=== PATIENT | male | born 1950 | race Caucasian/White ===

== ENCOUNTER → 2016-03-21 | Outpatient (CLI) | payer MEDICARE ==
[2016-03-21 12:51] LABS: ALT 35 U/L (21-72); AST 20 U/L (17-59); Alkaline Phosphatase 52 U/L (38-126); Anion Gap 8 mmol/L; Blood Urea Nitrogen 20 mg/dL (9-20); Calcium 9.8 mg/dL (8.4-10.2); Carbon Dioxide 29 mmol/L (22-30); Chloride 104 mmol/L (98-107); Glucose 171 mg/dL (74-99); Non-African American GFR(MDRD) 57 (>60 ml/min/1.73 sqM); Potassium 5.1 mmol/L (3.5-5.1); Sodium 141 mmol/L (137-145); Total Bilirubin 0.4 mg/dL (0.2-1.3); Total Protein 6.8 g/dL (6.3-8.2)
--- NOTE | 2016-03-21 13:04 | XR ---
EXAMINATION TYPE: XR lumbosacral spine min 4V DATE OF EXAM: 03/21/2016 12:44 PM CLINICAL HISTORY: Back and sacroiliac joint pain TECHNIQUE: Frontal, lateral, and oblique images of the lumbar spine are obtained. COMPARISON: Prior lumbar spine x-ray December 18, 2008. Prior CT abdomen pelvis September 29, 2015. FINDINGS: Osseous structures are demineralized which is noted to lower radiographic sensitivity Ther e are 5 lumbar type vertebral bodies identified. There are persistent bilateral pars defects at L5 le lobo. There is grade 2 anterolisthesis of L5 on S1 redemonstrated. There is moderate to severe spurrin g and space loss at this level redemonstrated. There is additional moderate to severe disc space narr owing with moderate spurring and endplate sclerosis at L2-L3 level. There is moderate spurring and di sc space narrowing at L3-L4 level. There is multilevel moderate to severe spurring in the lower thora cic spine. There is calcification is present at T12-L1 level with moderate disc space narrowing. Ther e is moderate to severe multilevel lateral spurring most prominent left L2-L3 and right L3-L4 levels. Oblique images are within normal limits. Loss of normal lumbar lordosis is seen on lateral view. Ove rlying soft tissue is unremarkable. IMPRESSION: Demineralization, multilevel degenerative changes, and other findings as detailed above. No significant change from most recent CT. Progression in findings from 2009 films noted.
--- NOTE | 2016-03-21 13:07 | XR ---
EXAMINATION TYPE: XR abdomen 1V DATE OF EXAM: 03/21/2016 12:43 PM CLINICAL HISTORY: Kidney stones progress study TECHNIQUE: 2 supine KUB images of the abdomen are obtained. COMPARISON: Abdominal x-ray and CT abdomen and pelvis September 29, 2015 FINDINGS: Previously visualized 4 mm calculus lower pole level right kidney is not definitively seen on current study. There is more prominent overlying fecal material however noted making evaluation smith boptimal. Same day lumbar spine x-ray also does not definitively show previously visualized calculus. There is overall nonobstructive bowel gas pattern. Numerous surgical clips in the right pelvis are no w present. There are multiple left-sided pelvic phleboliths redemonstrated. Multilevel spurring and d isc space narrowing throughout the lumbar spine is redemonstrated. Lung bases are grossly clear. Card iomegaly is redemonstrated. IMPRESSION: Previously visualized 4 mm calculus lower pole level right kidney is not clearly seen on today's stud y.
== END | disposition home or self-care (01) ==
LOC: LABWHC1 11:54
PROVIDERS: ATTEND Family Medicine
DX: E87.6 Hypokalemia (principal); M53.3 Sacrococcygeal disorders, not elsewhere classified; N20.0 Calculus of kidney
CPT/HCPCS: 36415; 72110; 74000; 80053

== ENCOUNTER → 2016-04-29 | Outpatient (CLI) | payer MEDICARE ==
[2016-04-29 09:26] LABS: Potassium 5.2 mmol/L (3.5-5.1); Total Bilirubin 0.8 mg/dL (0.2-1.3); Total Protein 7.6 g/dL (6.3-8.2)
[2016-04-29 14:01] LABS: Hemoglobin A1C 6.6 % (4.2-6.1)
== END | disposition home or self-care (01) ==
LOC: LABWHC1 08:28
PROVIDERS: ATTEND Family Medicine
DX: E11.9 Type 2 diabetes mellitus without complications (principal); E87.6 Hypokalemia
CPT/HCPCS: 36415; 80053; 83036

== ENCOUNTER → 2016-06-03 | Outpatient (CLI) | payer MEDICARE ==
--- NOTE | 2016-06-03 16:15 | XR ---
EXAMINATION TYPE: XR chest 2V DATE OF EXAM: 06/03/2016 3:59 PM HISTORY: R05 Cough. REFERENCE: Previous study dated 12/18/2008. FINDINGS: The lungs are clear. Pleural spaces are clear. Heart size is upper limits of normal. IMPRESSION: BORDERLINE CARDIOMEGALY.
== END ==
LOC: RADXRMAIN 15:51
PROVIDERS: ATTEND Family Medicine
DX: I51.7 Cardiomegaly (principal)
CPT/HCPCS: 71020

== ENCOUNTER → 2016-07-25 | Outpatient (CLI) | payer MEDICARE ==
[2016-07-25 10:49] LABS: CH 29.8; CHCM 33.2; HCT 42.1 % (39.0-53.0); HDW 2.73; HGB 13.8 gm/dL (13.0-17.5); MCH 29.6 pg (25.0-35.0); MCHC 32.8 g/dL (31.0-37.0); MCV 90.3 fL (80.0-100.0); Mean Platelet Volume 6.4; RBC 4.66 m/uL (4.30-5.90); RDW 13.1 % (11.5-15.5)
[2016-07-25 11:21] LABS: ALT 32 U/L (21-72); AST 24 U/L (17-59); Alkaline Phosphatase 52 U/L (38-126); Anion Gap 9 mmol/L; Blood Urea Nitrogen 28 mg/dL (9-20); Carbon Dioxide 25 mmol/L (22-30); Chloride 107 mmol/L (98-107); Cholesterol 132 mg/dL (<200); Glucose 141 mg/dL (74-99); HDL Cholesterol 38 mg/dL (40-60); Non-African American GFR(MDRD) 51 (>60 ml/min/1.73 sqM); Potassium 5.5 mmol/L (3.5-5.1); Sodium 141 mmol/L (137-145); Total Bilirubin 0.6 mg/dL (0.2-1.3); Triglycerides 105 mg/dL (<150)
[2016-07-25 13:29] LABS: Hemoglobin A1C 6.8 % (4.2-6.1)
== END | disposition home or self-care (01) ==
LOC: LABWHC1 09:28
PROVIDERS: ATTEND Family Medicine
DX: E11.9 Type 2 diabetes mellitus without complications (principal); E78.5 Hyperlipidemia, unspecified
CPT/HCPCS: 36415; 80053; 80061; 82043; 83036; 85027

== ENCOUNTER → 2016-09-22 | Outpatient (CLI) | payer MEDICARE ==
--- NOTE | 2016-09-22 21:45 | MR ---
EXAMINATION TYPE: MR lumbar spine wo con DATE OF EXAM: 09/22/2016 COMPARISON: Lumbar spine x-ray March 21, 2016. CT abdomen and pelvis September 20, 2012 HISTORY: DJD and lumbar radiculopathy per order. Right-sided pain into buttocks and lower extremity f or 6 weeks with sciatic nerve pain per patient. TECHNIQUE: Multiplanar, multisequence imaging of the lumbar spine is performed without IV contrast. FINDINGS: Sagittal images of the lumbar spine show new mild height loss or central compression involv ing the superior L5 endplate on sagittal image 9. There is surrounding T1 hypointensity and heterogen eous T2 hypointensity and hyperintensity without abnormal disc signal suggesting Modic type I and typ e III degenerative changes. There is persistent grade 2 anterolisthesis of L5 on S1 measured up to 1 4 mm. Bilateral pars defects are noted on corresponding CT. There is multilevel disc space narrowing with relative sparing of L4-L5 level. There is advanced disc space narrowing with vacuum disc phenome non at L2-L3 and L5-S1 levels posteriorly. Posterior disc herniations are present at L2-L3 thru L4-L5 levels with most prominent disc herniation L2-L3 level noted. There is moderate multilevel anterior spurring. The conus medullaris is normal in position and signal. The bone marrow signal intensity is overall heterogeneous with diffuse endplate changes noted. Hemangioma left L1 vertebral body level i s present on sagittal image 7. Axial images at the T12-L1 level redemonstrate small broad-based right paracentral osteophyte effacin g anterior thecal sac on axial image 35, bilateral neural foramina remain patent. Axial images at the L1-L2 level show moderate broad disc bulge mildly effacing anterior thecal sac. B ilateral neural foramina are patent. Axial images at L2-L3 level show severe broad disc bulge effacing anterior thecal sac most prominent on axial image 22. Calcified disc is seen better on CT at this level. There is focal increased signal posteriorly consistent with annular tear. Inferior extrusion is noted on sagittal image 8. There is moderate bilateral inferior neural foraminal narrowing seen at this level. Axial images at L3-L4 level show posterior spur disc complex with moderate to severe broad disc bulge effacing anterior thecal sac and causing moderate to severe right greater than left neural foraminal narrowing with encroachment on right L3 nerve suspected in foramina on sagittal image 13. Axial images at L4-L5 level show mild to moderate facet arthropathy. There is central disc protrusion seen. Spinal canal is grossly preserved as there is increased epidural fat at this level. There is h owever advanced left greater than right neural foraminal narrowing with encroachment of left L4 nerve as there is loss of surrounding fat seen on sagittal image 5. Axial images at L5-S1 level show moderate facet degenerative changes bilaterally as well as bilateral pars defects. Spinal canal is preserved. Spondylolisthesis is demonstrated. There is advanced bilate ral neural foraminal narrowing with bilateral L5 nerve effacement is foramina due to spondylolisthesi s. IMPRESSION: Redemonstration of bilateral pars defects L5 level with grade 2 anterolisthesis of L5 on S1. There is multilevel degenerative change with most prominent spinal canal stenosis noted at L2-L3 and L3-L4 levels. There is multilevel neural foraminal narrowing with encroachment on right L3 nerve suspected at L3-L4 level, left L4 nerve suspected at L4-L5 level, and bilateral L5 nerve encroachment due to spondylolisthesis at L5-S1 level. Further details are noted as discussed above.
== END ==
LOC: RADMRIMAIN 16:54
PROVIDERS: ATTEND Family Medicine
DX: M48.06 Spinal stenosis, lumbar region (principal); M99.73 Connective tissue and disc stenosis of intervertebral foramina of lumbar region; M43.16 Spondylolisthesis, lumbar region; M47.26 Other spondylosis with radiculopathy, lumbar region
CPT/HCPCS: 72148

== ENCOUNTER 2016-10-31 11:41 | Day surgery (SDC) | payer MEDICARE ==
[2016-10-31] MEDS ORDERED: LACTATED RINGERS 1,000 ML IV SCH (12:56)
[2016-10-31] MEDS ORDERED: LIDOCAINE 1% 20 ML VIAL (10MG/ML) FOR IV START INTRADERMA PRN (12:56)
[2016-10-31 13:05] LABS: Glucose,Whole Blood 121 mg/dL (75-99)
[2016-10-31 13:13] VITALS: TEMP 98
[2016-10-31] MEDS ORDERED: fentaNYL (PF) 50 MCG/ML 2 ML AMP ONE (13:18)
[2016-10-31] MEDS ORDERED: PROPOFOL 10 MG/ML 20 ML VIAL IV ONE (13:18)
[2016-10-31] MEDS ORDERED: MIDAZOLAM 2 MG/2 ML VIAL ONE (13:18)
[2016-10-31 13:55] VITALS: RESP 16
--- NOTE | 2016-10-31 14:01 | P.OP ---
Date of Procedure: 10/31/16 Preoperative Diagnosis: Screening. Personal history of colon polyps tubular adenomas. Postoperative Diagnosis: 1 transverse colon polyp. 2 descending colon polyp. 3 descending colon polyps 2. 4 mild to moderate diverticulosis. Procedure(s) Performed: Colonoscopy and snare polypectomy 4. Implants: Anesthesia: MAC Surgeon: Duong Whatley Estimated Blood Loss (ml): 0 Pathology: other (Colon polyps 4) Condition: stable Disposition: same day Indications for Procedure: Screening. Personal history of colon polyps Operative Findings: Colon polyps 4. Diverticulosis. Description of Procedure: With the patient in the left lateral position rectal digital examination was normal there no palpable masses. No prostatic masses. The video colonoscope was inserted transanally and advanced all the way to the cecum which was entered and well visualized. The mucosa were thoroughly examined. Findings. 4 small polyps almost similar each about 3 mm in diameter one in the proximal transverse colon , 1 in the descending colon, to the proximal descending colon close to one another all of which were removed completely with the snare cautery with good hemostasis. Mild to moderate diverticulosis. The patient tolerated procedure well without any evident complication. Recommendation. High-fiber diet. Follow-up colonoscopy in about 5 years.
--- NOTE | 2016-10-31 14:03 | P.DS ---
Providers Attending physician: Duong Whatley Primary care physician: Micah Benz Plan - Discharge Summary New Discharge Prescriptions: No Action metFORMIN HCL [Glucophage] 500 mg PO PC-BID Lisinopril [Prinivil] 10 mg PO HS Glimepiride [Amaryl] 5 mg PO HS Fenofibrate [Tricor] 160 mg PO HS Hydrocodone/Acetaminophen [[place] 5-325] 1 tab PO Q4HR PRN PRN Reason: Pain Discharge Medication List Glimepiride [Amaryl] 5 mg PO HS 09/29/15 [History] Lisinopril [Prinivil] 10 mg PO HS 09/29/15 [History] metFORMIN HCL [Glucophage] 500 mg PO PC-BID 09/29/15 [History] Fenofibrate [Tricor] 160 mg PO HS 10/02/15 [History] Hydrocodone/Acetaminophen [[place] 5-325] 1 tab PO Q4HR PRN 10/02/15 [History] Patient Instructions/Handouts: Colonoscopy (DC)
[2016-10-31 14:21] VITALS: BP 135/72; PULSE 61
== END 2016-10-31 14:51 | disposition home or self-care (01) ==
LOC: ORWHC2ENDO 11:41
PROVIDERS: ATTEND Surgery
DX: Z12.11 Encounter for screening for malignant neoplasm of colon (principal); D12.2 Benign neoplasm of ascending colon; D12.3 Benign neoplasm of transverse colon; D12.4 Benign neoplasm of descending colon; Z79.899 Other long term (current) drug therapy; K57.30 Diverticulosis of large intestine without perforation or abscess without bleeding; Z80.0 Family history of malignant neoplasm of digestive organs; Z79.82 Long term (current) use of aspirin; I10 Essential (primary) hypertension; E78.5 Hyperlipidemia, unspecified; E11.9 Type 2 diabetes mellitus without complications; Z79.84 Long term (current) use of oral hypoglycemic drugs
CPT/HCPCS: 88305; 45385; J2250; J3010; J2704

== ENCOUNTER → 2016-10-31 | Outpatient (CLI) | payer MEDICARE ==
[2016-10-31 15:42] LABS: ALT 36 U/L (21-72); AST 25 U/L (17-59); Alkaline Phosphatase 46 U/L (38-126); Anion Gap 10 mmol/L; Blood Urea Nitrogen 26 mg/dL (9-20); Carbon Dioxide 27 mmol/L (22-30); Chloride 105 mmol/L (98-107); Glucose 99 mg/dL (74-99); Non-African American GFR(MDRD) 55 (>60 ml/min/1.73 sqM); Potassium 4.7 mmol/L (3.5-5.1); Sodium 142 mmol/L (137-145); Total Bilirubin 0.7 mg/dL (0.2-1.3); Total Protein 6.7 g/dL (6.3-8.2)
[2016-10-31 20:55] LABS: Hemoglobin A1C 6.8 % (4.2-6.1)
== END | disposition home or self-care (01) ==
LOC: LABWHC1 14:59
PROVIDERS: ATTEND Family Medicine
DX: E11.9 Type 2 diabetes mellitus without complications (principal)
CPT/HCPCS: 36415; 80053; 83036

== ENCOUNTER → 2017-01-27 | Outpatient (CLI) | payer MEDICARE ==
[2017-01-27 11:06] LABS: Basophils % (A) 1 %; CH 30.4; CHCM 34.9; Eosinophils # (A) 0.1 k/uL (0-0.7); Eosinophils % (A) 3 %; HCT 40.9 % (39.0-53.0); HDW 3.07; HGB 13.8 gm/dL (13.0-17.5); Luc # (Auto) 0.08; Luc % (Auto) 3; Lymphocytes # (A) 0.9 k/uL (1.0-4.8); Lymphocytes % (A) 27 %; MCH 29.5 pg (25.0-35.0); MCHC 33.8 g/dL (31.0-37.0); MCV 87.4 fL (80.0-100.0); Mean Platelet Volume 6.4; Monocytes # (A) 0.2 k/uL (0-1.0); Monocytes % (A) 7 %; Neutrophils # (A) 2.1 k/uL (1.3-7.7); Neutrophils % (A) 60 %; RBC 4.68 m/uL (4.30-5.90); RDW 12.8 % (11.5-15.5); WBC 3.4 k/uL (3.8-10.6); WBC (Perox) 3.41
[2017-01-27 13:26] LABS: ALT 31 U/L (21-72); AST 20 U/L (17-59); Alkaline Phosphatase 71 U/L (38-126); Anion Gap 9 mmol/L; Blood Urea Nitrogen 23 mg/dL (9-20); Calcium 9.9 mg/dL (8.4-10.2); Carbon Dioxide 26 mmol/L (22-30); Chloride 106 mmol/L (98-107); Cholesterol 122 mg/dL (<200); Glucose 108 mg/dL (74-99); HDL Cholesterol 27 mg/dL (40-60); Non-African American GFR(MDRD) >60 (>60 ml/min/1.73 sqM); Potassium 5.7 mmol/L (3.5-5.1); Sodium 141 mmol/L (137-145); Total Bilirubin 0.5 mg/dL (0.2-1.3); Total Protein 6.7 g/dL (6.3-8.2)
== END | disposition home or self-care (01) ==
LOC: LABWHC1 10:28
PROVIDERS: ATTEND Family Medicine
DX: E78.5 Hyperlipidemia, unspecified (principal); E11.9 Type 2 diabetes mellitus without complications
CPT/HCPCS: 36415; 80053; 80061; 83036; 84153; 85025

== ENCOUNTER → 2017-04-13 | Outpatient (CLI) | payer MEDICARE ==
[2017-04-13 16:54] LABS: Appearance,Urine Clear (Clear); Bilirubin,Urine Negative (Negative); Blood,Urine Negative (Negative); Color,Urine Light Yellow; Glucose,Urine (UA) Negative (Negative); Ketones,Urine Negative (Negative); Leukocyte Esterase,Urine Negative (Negative); Nitrite,Urine Negative (Negative); PH, Urine 5.5 (5.0-8.0); Protein,Urine Negative (Negative); Specific Gravity,Urine 1.015 (1.001-1.035); Urobilinogen,Urine <2.0 mg/dL (<2.0)
[2017-04-13 16:55] LABS: Partial Thromboplastin Time 22.5 sec (22.0-30.0); Prothrombin Time 9.9 sec (9.0-12.0)
[2017-04-13 16:58] LABS: HCT 40.7 % (39.0-53.0); HGB 13.7 gm/dL (13.0-17.5); MCH 29.7 pg (25.0-35.0); MCHC 33.7 g/dL (31.0-37.0); MCV 88.1 fL (80.0-100.0); Mean Platelet Volume 6.3; Platelet Count 228 k/uL (150-450); RBC 4.62 m/uL (4.30-5.90); RDW 12.7 % (11.5-15.5); WBC 4.2 k/uL (3.8-10.6)
[2017-04-13 17:05] LABS: ALT 29 U/L (21-72); AST 20 U/L (17-59); Albumin 4.4 g/dL (3.5-5.0); Alkaline Phosphatase 71 U/L (38-126); Anion Gap 11 mmol/L; Blood Urea Nitrogen 26 mg/dL (9-20); Calcium 10.2 mg/dL (8.4-10.2); Carbon Dioxide 27 mmol/L (22-30); Chloride 106 mmol/L (98-107); Glucose 63 mg/dL (74-99); Sodium 144 mmol/L (137-145); Total Bilirubin 0.3 mg/dL (0.2-1.3)
== END | disposition home or self-care (01) ==
LOC: LABPAT 15:56
PROVIDERS: ATTEND Orthopaedic Surgery
DX: Z01.812 Encounter for preprocedural laboratory examination (principal)
CPT/HCPCS: 36415; 80053; 81003; 85027; 85610; 85730; 87070; 93005

== ENCOUNTER 2017-05-02 07:12 | Inpatient (IN) | payer MEDICARE ==
[2017-04-25 16:21] VITALS: BMI 27.4
[~2017-05-02 07:12] MED LIST: ACETAMINOPHEN TAB 500 MG TAB PO ONE; DEXAMETHASONE SOD PHOSPHATE 10 MG/ML 1 ML VIAL IV ONE; HYDROmorphone 0.5 MG/0.5 ML SYRINGE IVP PRN; MELOXICAM 7.5 MG TAB PO ONE; MIDAZOLAM 2 MG/2 ML VIAL IV PRN; ONDANSETRON 4 MG/2 ML VIAL IVP ONE; ROPIVACAINE 246.25 MG, EPINEPHrine 0.5 MG, KETOROLAC 30 MG, cloNIDine HCL/PF 80 MCG, WA... MISCELLANE ONE; TRANEXAMIC ACID 1,000 MG in SODIUM CHLORIDE 0.9% 50 ML IVPB ONE; ceFAZolin IN SWFI 2 GM/20 ML SYRINGE IVP ONE
[2017-05-02] MEDS: LACTATED RINGERS 1,000 ML IV SCH (08:29)
[2017-05-02] MEDS ORDERED: LIDOCAINE 1% 20 ML VIAL (10MG/ML) FOR IV START INTRADERMA ONE (08:30)
[2017-05-02 08:31] LABS: Glucose,Whole Blood 132 mg/dL (75-99)
[2017-05-02] MEDS ORDERED: DIAZEPAM 5 MG TAB PO PRN ×2 (09:19)
[2017-05-02] MEDS ORDERED: HYDROmorphone 0.5 MG/0.5 ML SYRINGE IVP PRN ×4 (09:19)
[2017-05-02] MEDS ORDERED: NA PHOS,M-B/NA PHOS,DI-BA 133 ML ENEMA RECTAL PRN (09:19)
[2017-05-02] MEDS ORDERED: MAGNESIUM HYDROXIDE 2,400 MG/10 ML CUP PO PRN (09:19)
[2017-05-02] MEDS ORDERED: BISACODYL 10 MG SUPP RECTAL PRN (09:19)
[2017-05-02] MEDS ORDERED: ONDANSETRON 4 MG/2 ML VIAL IVP PRN (09:19)
[2017-05-02] MEDS ORDERED: NALOXONE 0.4 MG/ML 1 ML VIAL IV PRN (09:19)
[2017-05-02] MEDS ORDERED: HYDROcodone/APAP 7.5-325MG 1 EACH TAB PO PRN (09:19)
[2017-05-02] MEDS ORDERED: MIDAZOLAM 2 MG/2 ML VIAL ONE (09:52)
[2017-05-02] MEDS ORDERED: SODIUM CHLORIDE 0.9% 100 ML BAG ONE (09:52)
[2017-05-02] MEDS ORDERED: TRANEXAMIC ACID 1,000 MG/10 ML VIAL ONE (09:52)
[2017-05-02] MEDS ORDERED: PROPOFOL 10 MG/ML 20 ML VIAL IV ONE (09:52)
[2017-05-02] MEDS ORDERED: DEXAMETHASONE SOD PHOS (MDV) 100 MG/10 ML VIAL ONE (09:52)
[2017-05-02] MEDS ORDERED: ONDANSETRON 4 MG/2 ML VIAL ONE (09:52)
[2017-05-02] MEDS ORDERED: ePHEDrine SULFATE/0.9% NACL/PF 50 MG/5 ML SYRINGE IV ONE (09:52)
[2017-05-02] MEDS ORDERED: LIDOCAINE 1% INJ 10MG/ML (20 ML MDV) ONE (09:52)
[2017-05-02] MEDS ORDERED: fentaNYL (PF) 50 MCG/ML 2 ML AMP ONE (09:52)
[2017-05-02] MEDS ORDERED: ceFAZolin 3,000 MG in SODIUM CHLORIDE 0.9% IRRIGATIO 3,000 ML IRRIGATION ONE (10:22)
--- NOTE | 2017-05-02 11:07 | P.ONQ ---
Anesthesiology Proc Note - PNB - Peripheral Nerve Block Performed Right Adductor Canal Infusion Time Out Performed: Yes Procedure Start Time: :42 Procedure Stop Time: :49 Indication: Acute Post-Operative Pain, Requested by physician Sedation Type: Sedate with meaningful contact maintained Preparation: Sterile Dressing Position: Supine Catheter: Indwelling Needle Types: On-Q Needle Size: 100mm (4") Needle Gauge: 21 Technique: Ultrasound Injectate: 0.5% Ropivacaine (see comment for volume) (ropi.5% 20cc) Blood Aspirated: No Pain Paresthesia on Injection Noted: No Resistance on Injection: Normal Events: Uneventful and Well Tolerated
[2017-05-02] MEDS ORDERED: ROPIVACAINE 1,100 MG, SODIUM CHLORIDE 0.9% 330 ML MISCELLANE PRN ×2 (11:11)
--- NOTE | 2017-05-02 11:52 | XR ---
EXAMINATION TYPE: XR knee limited RT DATE OF EXAM: 05/02/2017 CLINICAL HISTORY: Right knee pain and arthritis status post total knee replacement. TECHNIQUE: Portable AP and crosstable lateral views of the right knee are obtained immediately posto peratively. COMPARISON: None FINDINGS: Metallic hardware from total right knee arthroplasty is seen and appears satisfactory in a lignment and position. There is evidence of recent surgery with diffuse subcutaneous gas and soft ti ssue swelling noted. IMPRESSION: METALLIC HARDWARE FROM TOTAL RIGHT KNEE ARTHROPLASTY IS SATISFACTORY IN ALIGNMENT.
[2017-05-02] MEDS ORDERED: LACTATED RINGERS 1,000 ML IV ONE (15:46)
[2017-05-02] MEDS: ceFAZolin IN SWFI 2 GM/20 ML SYRINGE IVP SCH (17:36)
[2017-05-02 17:39] LABS: Glucose,Whole Blood 251 mg/dL (75-99)
[2017-05-02] MEDS ORDERED: ACETAMINOPHEN TAB 500 MG TAB PO PRN (17:44)
[2017-05-02] MEDS: SODIUM CHLORIDE 0.9% 1,000 ML IV SCH (19:14)
[2017-05-02] MEDS: metFORMIN 500 MG TAB PO SCH (19:15)
[2017-05-02] MEDS: GEMFIBROZIL 600 MG TAB PO SCH (19:15)
[2017-05-02] MEDS ORDERED: LOSARTAN 25 MG TAB PO SCH (21:00)
[2017-05-02] MEDS ORDERED: SENNOSIDES-DOCUSATE SODIUM 1 EACH TAB PO SCH (21:00)
[2017-05-02 21:16] LABS: Glucose,Whole Blood 252 mg/dL (75-99)
[2017-05-02] MEDS: INSULIN ASPART 100 UNIT/ML 1 ML 10 ML VIAL SQ SCH (21:34)
[2017-05-02] MEDS: ASPIRIN 325 MG TAB PO SCH (21:35)
[2017-05-02] MEDS: hydrOXYzine PAMOATE 25 MG CAP PO PRN (22:12)
[2017-05-02] MEDS: HYDROcodone/APAP 7.5-325MG 1 EACH TAB PO PRN (22:12)
[2017-05-03] MEDS: ceFAZolin IN SWFI 2 GM/20 ML SYRINGE IVP SCH (00:23)
[2017-05-03] MEDS: SODIUM CHLORIDE 0.9% 1,000 ML IV SCH (00:27)
[2017-05-03] MEDS: LACTATED RINGERS 1,000 ML IV SCH (01:02)
[2017-05-03 03:06] VITALS: RESP 16
[2017-05-03] MEDS: hydrOXYzine PAMOATE 25 MG CAP PO PRN (04:56)
[2017-05-03] MEDS: HYDROcodone/APAP 7.5-325MG 1 EACH TAB PO PRN (04:57)
[2017-05-03 07:06] LABS: Glucose,Whole Blood 93 mg/dL (75-99)
--- NOTE | 2017-05-03 07:25 | P.PN ---
Progress Note - Text Progress Note Date: 05/03/17 . Postoperative day # 1 status post total knee arthroplasty, under spinal anesthesia, and adductor canal catheter placed for postoperative analgesia, currently at ropivacaine 0.2% 8 mL per hour and continuous infusion, visual analogue scale is 2/10, patient using oral pain medication for breakthrough pain. Assessment and plan= Acute postoperative pain, adductor canal catheter for pain control, pain is well controlled we'll continue the same management.
[2017-05-03] MEDS ORDERED: GLIMEPIRIDE 2 MG TAB PO SCH (07:30)
[2017-05-03 07:37] VITALS: BP 144/77; PULSE 80; TEMP 98.1
[2017-05-03] MEDS: metFORMIN 500 MG TAB PO SCH (07:59)
[2017-05-03] MEDS: ASPIRIN 325 MG TAB PO SCH (07:59)
[2017-05-03] MEDS: GEMFIBROZIL 600 MG TAB PO SCH (08:00)
[2017-05-03] MEDS: INSULIN ASPART 100 UNIT/ML 1 ML 10 ML VIAL SQ SCH (08:03)
--- NOTE | 2017-05-03 08:13 | P.CONS ---
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 The patient is doing quite well. Blood sugar has been stable. Been consulted to assist in medical management. No pulmonary toilet issues no voiding difficulties are stated. Review of Systems Constitutional: Denies chills, Denies fever Eyes: denies blurred vision, denies pain Ears, nose, mouth and throat: Denies headache, Denies sore throat Cardiovascular: Denies chest pain, Denies shortness of breath Respiratory: Denies cough Gastrointestinal: Denies abdominal pain, Denies diarrhea, Denies nausea, Denies vomiting Musculoskeletal: Denies myalgias Past Medical History Past Medical History: Cancer, Diabetes Mellitus, Hyperlipidemia, Osteoarthritis (OA) Additional Past Medical History / Comment(s): hx of gout, kidney stone w/ obstruction 2015, basal cell ca, beginnings of cataracts, chronic back pain History of Any Multi-Drug Resistant Organisms: None Reported Past Surgical History: Joint Replacement, Orthopedic Surgery, Tonsillectomy Additional Past Surgical History / Comment(s): orif of left ankle and right ankle. left knee replacement, colonoscopy, rt eye lid sx, right ureteral lithotomy 2015 Past Anesthesia/Blood Transfusion Reactions: No Reported Reaction Past Psychological History: No Psychological Hx Reported Additional Psychological History / Comment(s): pt lives with his jayy, is independant , no assistive devices used when up. 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 no service. Smoking Status: Former smoker Past Alcohol Use History: Occasional Additional Past Alcohol Use History / Comment(s): smoked x 3 years ,quit 1969 Past Drug Use History: None Reported - Past Family History Father Family Medical History: Cancer, CVA/TIA, Prostate Disorder Additional Family Medical History / Comment(s): prostate cancer Mother Family Medical History: Hypertension Additional Family Medical History / Comment(s): osteoporosis Medications and Allergies Home Medications Medication Instructions Recorded Confirmed Type Glimepiride [Amaryl] 2 mg PO AC-BRKFST 09/29/15 05/02/17 History metFORMIN HCL [Glucophage] 500 mg PO PC-BID 09/29/15 05/02/17 History Hydrocodone/Acetaminophen [[place] 1 tab PO Q4HR PRN 10/02/15 05/02/17 History 5-325] Acetaminophen [Tylenol Extra 500 mg PO Q6H PRN 04/25/17 05/02/17 History Strength] Aspirin 81 mg PO DAILY 04/25/17 05/02/17 History Gemfibrozil [Lopid] 600 mg PO AC-BID 04/25/17 05/02/17 History Ibuprofen [Motrin] 400 mg PO Q8HR PRN 04/25/17 05/02/17 History Losartan Potassium [Cozaar] 25 mg PO HS 04/25/17 05/02/17 History Terbinafine [LamISIL] 250 mg PO DAILY 04/25/17 05/02/17 History Allergies Allergy/AdvReac Type Severity Reaction Status Date / Time No Known Allergies Allergy Verified 05/02/17 12:01 Physical Exam Vitals: Vital Signs Temp Pulse Pulse Resp BP BP Pulse Ox 05/03/17 07:00 98.1 F 80 16 144/77 95 05/03/17 03:05 98.0 F 57 L 16 117/63 93 L 05/02/17 19:26 98.7 F 76 18 125/65 96 05/02/17 16:04 97.9 F 73 16 145/67 97 05/02/17 15:29 79 16 135/63 92 L 05/02/17 15:00 72 14 140/78 93 L 05/02/17 14:35 63 16 128/63 92 L 05/02/17 13:40 59 L 16 122/61 92 L 05/02/17 12:45 60 16 120/57 92 L 05/02/17 12:30 57 L 18 115/59 92 L 05/02/17 12:15 56 L 16 124/61 93 L 05/02/17 12:00 59 L 14 125/61 93 L 05/02/17 11:45 56 L 16 124/61 96 05/02/17 11:29 97.1 F L 57 L 16 120/56 96 05/02/17 08:50 72 16 140/78 98 05/02/17 08:33 97.6 F 74 16 173/84 98 Intake and Output 05/02/17 05/03/17 05/03/17 22:59 06:59 14:59 Intake Total 250 585 Balance 250 585 Intake: Intake, IV Titration 585 Amount Sodium Chloride 0.9% 1, 585 000 ml @ 65 mls/hr IV . [id number] [facility] Rx#:[id number] Oral 250 Other: Voiding Method Toilet # Voids 1 1 Weight 77.111 kg - Constitutional General appearance: no acute distress - EENT Eyes: EOMI - Neck Neck: no lymphadenopathy - Respiratory Respiratory: bilateral: CTA - Cardiovascular Rhythm: regular Heart sounds: normal: S1, S2 - Gastrointestinal General gastrointestinal: soft, no tenderness Results Labs: Abnormal Lab Results - Last 24 Hours (Table) 05/02/17 05/02/17 05/02/17 Range/Units 08:19 16:49 21:12 POC Glucose (mg/dL) 132 H 251 H 252 H (75-99) mg/dL Assessment and Plan (1) Diabetes Current Visit: Yes Status: Acute Code(s): E11.9 - TYPE 2 DIABETES MELLITUS WITHOUT COMPLICATIONS SNOMED Code(s): 12151733 (2) Osteoarthritis of right knee Current Visit: Yes Status: Acute Code(s): M17.11 - UNILATERAL PRIMARY OSTEOARTHRITIS, RIGHT KNEE SNOMED Code(s): 347551739260134 Plan: Reconcile medications. He is progressing ahead of schedule from a mobility perspective. We'll DC when cleared by attending. See orders otherwise. Time with Patient: Less than 30
[2017-05-03 08:14] LABS: Basophils % (A) 0 %; Eosinophils # (A) 0.1 k/uL (0-0.7); Eosinophils % (A) 1 %; HCT 34.6 % (39.0-53.0); HGB 11.7 gm/dL (13.0-17.5); Lymphocytes # (A) 0.8 k/uL (1.0-4.8); Lymphocytes % (A) 16 %; MCH 29.4 pg (25.0-35.0); MCHC 33.8 g/dL (31.0-37.0); MCV 87.1 fL (80.0-100.0); Mean Platelet Volume 6.7; Monocytes # (A) 0.3 k/uL (0-1.0); Monocytes % (A) 6 %; Neutrophils # (A) 3.9 k/uL (1.3-7.7); Neutrophils % (A) 75 %; Platelet Count 204 k/uL (150-450); RBC 3.97 m/uL (4.30-5.90); RDW 12.4 % (11.5-15.5); WBC 5.2 k/uL (3.8-10.6)
--- NOTE | 2017-05-03 08:44 | P.DS ---
Providers Date of admission: 05/02/17 07:12 Expected date of discharge: 05/03/17 Attending physician: Ar Mccloud Consults: 05/02/17 09:19 Consult Physician Routine Consulting Provider: Micah Benz Consult Reason/Comments: medical management Do you want consulting provider notified?: Yes Primary care physician: Micah Benz - Discharge Diagnosis(es) (1) Primary osteoarthritis of right knee Current Visit: Yes Status: Acute (2) S/P total knee arthroplasty Current Visit: Yes Status: Acute Hospital Course: This is a 66-year-old male with known history of degenerative arthritis of the right knee. The patient presents for evaluation. After discussion and consideration patient elects to proceed with total knee arthroplasty. The patient is seen preoperatively by Dr. Mccloud and cleared for surgery. Patient is admitted to [facility] on 05/02/2017 for total knee arthroplasty. The procedures performed without complication or sequelae. The patient is doing well postoperatively. Labs and vital signs are stable on day of discharge. On day of discharge patient's knee incision is healing well. There is minimal erythema. There is no drainage noted at this time. There is minimal soft tissue swelling to the knee. Patient has full foot and ankle motion without difficulty or pain. Neurovascular status to the right lower extremity is intact. Patient is discharged home in good condition. Please see med rec for accurate list of home medications. Plan - Discharge Summary Discharge Rx Participant: No New Discharge Prescriptions: New Aspirin 325 mg PO BID #60 tab HYDROcodone/APAP 7.5-325MG [[place] 7.5-325] 1 - 2 tab PO Q4-6H PRN #90 tab PRN Reason: Pain Sennosides [Senokot] 1 tab PO BID #60 tablet No Action metFORMIN HCL [Glucophage] 500 mg PO PC-BID Glimepiride [Amaryl] 2 mg PO AC-BRKFST Hydrocodone/Acetaminophen [[place] 5-325] 1 tab PO Q4HR PRN PRN Reason: Pain Terbinafine [LamISIL] 250 mg PO DAILY Ibuprofen [Motrin] 400 mg PO Q8HR PRN PRN Reason: Pain Aspirin 81 mg PO DAILY Gemfibrozil [Lopid] 600 mg PO AC-BID Losartan Potassium [Cozaar] 25 mg PO HS Acetaminophen [Tylenol Extra Strength] 500 mg PO Q6H PRN PRN Reason: Pain Discharge Medication List Glimepiride [Amaryl] 2 mg PO AC-BRKFST 09/29/15 [History] metFORMIN HCL [Glucophage] 500 mg PO PC-BID 09/29/15 [History] Hydrocodone/Acetaminophen [[place] 5-325] 1 tab PO Q4HR PRN 10/02/15 [History] Acetaminophen [Tylenol Extra Strength] 500 mg PO Q6H PRN 04/25/17 [History] Aspirin 81 mg PO DAILY 04/25/17 [History] Gemfibrozil [Lopid] 600 mg PO AC-BID 04/25/17 [History] Ibuprofen [Motrin] 400 mg PO Q8HR PRN 04/25/17 [History] Losartan Potassium [Cozaar] 25 mg PO HS 04/25/17 [History] Terbinafine [LamISIL] 250 mg PO DAILY 04/25/17 [History] Aspirin 325 mg PO BID #60 tab 05/03/17 [Rx] HYDROcodone/APAP 7.5-325MG [[place] 7.5-325] 1 - 2 tab PO Q4-6H PRN #90 tab [Rx] Sennosides [Senokot] 1 tab PO BID #60 tablet 05/03/17 [Rx] Follow up Appointment(s)/Referral(s): Ar Mccloud DO [Doctor of Osteopathic Medicine] - 2 Weeks Ambulatory/Diagnostic Orders: Continuous Passive Motion (CPM) Machine [DME.AMB1] Time Frame: 3 Weeks, Location : Determined By Patient Activity/Diet/Wound Care/Special Instructions: Weightbearing as tolerated with a walker CPM 5-6h daily Leave dressing intact. May be removed by home care nurse in 10 days, 2017. May shower with dressing on. [facility] with questions or concerns [phone]
[2017-05-03] MEDS ORDERED: MELOXICAM 7.5 MG TAB PO SCH (09:00)
[2017-05-03] MEDS ORDERED: TERBINAFINE 250 MG TAB PO SCH (09:00)
[2017-05-03] MEDS ORDERED: HYDROmorphone 2 MG TAB PO PRN ×3 (13:40→13:41)
[2017-05-03] MEDS ORDERED: HYDROmorphone 4 MG TABLET PO PRN (13:42)
[2017-05-03 19:05] LABS: Hemoglobin A1C 6.8 % (4.0-6.0)
--- NOTE | 2017-05-08 14:29 | P.OP ---
Date of Procedure: 05/02/17 Preoperative Diagnosis: Severe osteoarthritis right knee Postoperative Diagnosis: Severe osteoarthritis right knee Procedure(s) Performed: Right total knee arthroplasty Implants: Isbell and Nephew Oxinium femoral component size 6, right Isbell & Nephew Kim II right nonporous tibial baseplate size 5 Isbell & Nephew size 11 mm Legion XLPE dished articular insert, size 5-6 Isbell & Nephew Kim II resurfacing patellar component, 32 mm All components were cemented using Carin bone cement.. The articulation is Oxinium on polyethylene. Anesthesia: spinal Surgeon: Ar Mccloud [employer] Labourer #1: Kavitha Wiley Estimated Blood Loss (ml): 50 Pathology: other (Bone and cartilage) Condition: stable Disposition: PACU Indications for Procedure: After failure of conservative treatment we discussed the surgical and nonsurgical treatment options at length. Patient wishes to proceed with a total knee arthroplasty. Complications specific to this procedure were discussed at length, including but not limited to infection, bleeding, stiffness , and nerve injury. Patient is aware of all these complications and informed consent was obtained Operative Findings: The operative findings are consistent with severe osteoarthritis of the right knee Description of Procedure: Patient was seen in the preoperative area consent was reviewed and operative site was marked with a skin marker. An adductor canal pain catheter was placed by anesthesia in the preoperative area. Patient was then brought to the operating room and given preoperative antibiotics intravenously. A spinal anesthetic was administered by the anesthesia department. A tourniquet was placed on the upper thigh and the lower extremity was prepped and draped in usual sterile fashion. A gram of transexamic acid was given. A universal timeout was then performed which confirmed the patient's name, surgical site, ALLERGIES, and consent. The lower extremity was then exsanguinated and tourniquet was inflated to 250 mmHg. A standard and anterior midline approach to the knee was performed. The skin and subcutaneous tissue was dissected down to the patellar tendon. A medial parapatellar arthrotomy was then performed. The knee was then extended, the patellar was everted, and the knee was again flexed. Anterior horns of both menisci were excised, and a release was performed to the posterior medial aspect of the knee. On gross visual inspection, there was complete loss of articular cartilage in the medial and patellofemoral joint spaces. There was also significant cartilage damage in the lateral compartment. There were multiple periarticular osteophytes which were then removed with a Ronguer. The femoral canal was then opened with the appropriate drill, and the intramedullary femoral cutting guide was then placed and set for 4 of valgus. The distal femoral cutting block was then pinned in place, and the distal femur was then cut. The cutting block was then removed and the cut was checked for flatness. Next, the sizing guide was then placed and set for 3 external rotation based off of the epicondylar axis and Whitesides line. After the femur was sized, the appropriate 4-in-1 cutting block was then pinned in place. The anterior condyles were cut without notching. The posterior and chamfer cuts were performed while protecting the collateral ligaments. The cutting block was then removed, and the femoral canal was plugged with autologous bone. Attention was then directed to the tibia. The remaining ACL was removed with a Ronguer, and the tibia was then gently subluxed forward with a large bent knee retractor. Any remaining menisci was excised. The posterior lateral corner was cauterized in order to cauterize the lateral geniculate artery. The extra medullary tibial cutting guide was then placed, set for the appropriate rotation , slope, and depth of resection. The proximal tibia cutting guide was then pinned in place. Proximal tibia was then cut and sized. Next trials were then placed with the appropriate-sized insert. The knee was able to fully extend and flex to 130 and was stable throughout all range of motion. The knee was then extended, patella everted. Patella was then measured, and then using an osteotomy guide, the patella was cut at the appropriate level. The patella was then measured and drilled and the patella trial was then placed. The knee was then taken through range of motion with the patella trial and the patella tracked normally. The knee was then extended patella trial was then removed and the patella was everted. Knee was then flexed and lug holes were drilled through the femoral trial and the femoral trial was then removed. The tibial was then exposed, and the tibial broach guide was then pinned in place after it was set for the appropriate rotation to allow for the most coverage without overhang. The tibia was then reamed and broached. The cut surfaces of bone were then irrigated with pulsatile lavage. The posterior structures were injected with the ropivacaine solution. The knee was also irrigated with Irrisept solution. The components were then opened, the cement was mixed, and the components were then cemented in place. The cement was allowed to harden with the knee in full extension. While the cement was hardening, the remaining soft tissues were then injected with a ropivacaine solution, which consisted of 246.25 mg of ropivacaine, 0.5 mg of epinephrine, 30 mg of Toradol, 80 g of clonidine, and 48.45 mL of sterile water, for a total of 100 mL of fluid injected. After the cemented hardened. The tourniquet was released, and hemostasis was obtained. A second gram of transexamic acid was given. The knee was again irrigated. The knee was again taken through range of motion and found to be stable throughout all range of motion of 0-130 , and the patella tracked normally. The fascia was then closed with #2 strata fix suture. The subcutaneous tissue was closed with 3-0 Vicryl and 3-0 strata fix. Dermabond glue was used for the skin and placed with the knee in flexion. The patient was placed in a sterile silver dressing. Patient was then transferred to recovery room in stable condition. The assistant broker NIRMAL Melton was required due the complexity surgery and the need for a skilled surgical technology instructor. She assisted in positioning, draping, retraction, and closure of the wound.
== END 2017-05-03 13:40 | disposition home health service (06) | DRG 470 ==
LOC: 2ORMAIN 07:12 → 3SUR 15:36
PROVIDERS: ADMIT Orthopaedic Surgery; ATTEND Orthopaedic Surgery
PROC: 0SRC069 Replacement of Right Knee Joint with Oxidized Zirconium on Polyethylene Synthetic Substitute, Cemented, Open Approach (ICD-10-PCS; principal; 2017-05-02 09:20)
DX: M17.11 Unilateral primary osteoarthritis, right knee (principal); B35.1 Tinea unguium; E11.9 Type 2 diabetes mellitus without complications; E78.5 Hyperlipidemia, unspecified; G89.18 Other acute postprocedural pain; M54.32 Sciatica, left side; M54.9 Dorsalgia, unspecified; G89.29 Other chronic pain; H26.9 Unspecified cataract; M10.9 Gout, unspecified; Z79.899 Other long term (current) drug therapy; Z79.82 Long term (current) use of aspirin; Z79.84 Long term (current) use of oral hypoglycemic drugs; Z96.652 Presence of left artificial knee joint; Z87.891 Personal history of nicotine dependence; Z85.828 Personal history of other malignant neoplasm of skin; Z82.49 Family history of ischemic heart disease and other diseases of the circulatory system
CPT/HCPCS: 83036; 85025; 88300

== ENCOUNTER → 2017-07-26 | Outpatient (CLI) | payer MEDICARE ==
[2017-07-26 09:54] LABS: Basophils % (A) 1 %; Eosinophils # (A) 0.1 k/uL (0-0.7); Eosinophils % (A) 2 %; HCT 41.6 % (39.0-53.0); HGB 14.3 gm/dL (13.0-17.5); Lymphocytes # (A) 0.7 k/uL (1.0-4.8); Lymphocytes % (A) 25 %; MCH 29.8 pg (25.0-35.0); MCHC 34.4 g/dL (31.0-37.0); MCV 86.5 fL (80.0-100.0); Mean Platelet Volume 6.6; Monocytes # (A) 0.2 k/uL (0-1.0); Monocytes % (A) 6 %; Neutrophils # (A) 1.8 k/uL (1.3-7.7); Neutrophils % (A) 63 %; Platelet Count 243 k/uL (150-450); RBC 4.81 m/uL (4.30-5.90); RDW 13.6 % (11.5-15.5); WBC 2.8 k/uL (3.8-10.6)
[2017-07-26 10:03] LABS: Albumin 4.4 g/dL (3.5-5.0); Calcium 9.9 mg/dL (8.4-10.2); Total Bilirubin 0.4 mg/dL (0.2-1.3); Total Protein 6.9 g/dL (6.3-8.2)
[2017-07-26 10:20] LABS: T4, Free (Free Thyroxine) 1.29 ng/dL (0.78-2.19)
[2017-07-26 18:39] LABS: Hemoglobin A1C 6.7 % (4.0-6.0)
== END | disposition home or self-care (01) ==
LOC: LABWHC1 09:12
PROVIDERS: ATTEND Family Medicine
DX: E11.9 Type 2 diabetes mellitus without complications (principal); M51.16 Intervertebral disc disorders with radiculopathy, lumbar region; Z71.3 Dietary counseling and surveillance
CPT/HCPCS: 36415; 80053; 80061; 83036; 84439; 84443; 85025

== ENCOUNTER → 2017-10-31 | Outpatient (CLI) | payer MEDICARE ==
[2017-10-31 08:49] LABS: Albumin 4.2 g/dL (3.5-5.0); Calcium 9.8 mg/dL (8.4-10.2); Total Bilirubin 0.5 mg/dL (0.2-1.3); Total Protein 6.9 g/dL (6.3-8.2)
[2017-10-31 09:02] LABS: Basophils % (A) 0 %; Eosinophils # (A) 0.1 k/uL (0-0.7); Eosinophils % (A) 2 %; HCT 43.5 % (39.0-53.0); Lymphocytes # (A) 0.8 k/uL (1.0-4.8); Lymphocytes % (A) 24 %; MCH 28.8 pg (25.0-35.0); MCHC 32.1 g/dL (31.0-37.0); MCV 89.6 fL (80.0-100.0); Mean Platelet Volume 6.4; Monocytes # (A) 0.2 k/uL (0-1.0); Monocytes % (A) 6 %; Neutrophils # (A) 2.2 k/uL (1.3-7.7); Neutrophils % (A) 66 %; Platelet Count 228 k/uL (150-450); RBC 4.85 m/uL (4.30-5.90); RDW 13.6 % (11.5-15.5); WBC 3.3 k/uL (3.8-10.6)
[2017-10-31 09:05] LABS: T4, Free (Free Thyroxine) 1.17 ng/dL (0.78-2.19)
[2017-10-31 16:43] LABS: Hemoglobin A1C 7.4 % (4.0-6.0)
== END | disposition home or self-care (01) ==
LOC: LABWHC1 08:06
PROVIDERS: ATTEND Family Medicine
DX: E78.5 Hyperlipidemia, unspecified (principal); E11.9 Type 2 diabetes mellitus without complications
CPT/HCPCS: 36415; 80053; 80061; 83036; 84439; 84443; 85025

== ENCOUNTER → 2018-02-23 | Outpatient (CLI) | payer MEDICARE ==
[~2018-02-23] MED LIST changes: -ACETAMINOPHEN TAB 500 MG TAB PO ONE; -DEXAMETHASONE SOD PHOSPHATE 10 MG/ML 1 ML VIAL IV ONE; -HYDROmorphone 0.5 MG/0.5 ML SYRINGE IVP PRN; -MELOXICAM 7.5 MG TAB PO ONE; -MIDAZOLAM 2 MG/2 ML VIAL IV PRN; -ONDANSETRON 4 MG/2 ML VIAL IVP ONE; +REGADENOSON 0.4 MG/5 ML SYRINGE IV ONE; -ROPIVACAINE 246.25 MG, EPINEPHrine 0.5 MG, KETOROLAC 30 MG, cloNIDine HCL/PF 80 MCG, WA... MISCELLANE ONE; -TRANEXAMIC ACID 1,000 MG in SODIUM CHLORIDE 0.9% 50 ML IVPB ONE; -ceFAZolin IN SWFI 2 GM/20 ML SYRINGE IVP ONE
--- NOTE | 2018-02-23 11:30 | NM ---
EXAMINATION TYPE: NM stress lexiscan cardiolite DATE OF EXAM: 02/23/2018 COMPARISON: NONE HISTORY: Abnormal EKG TECHNIQUE: After the intravenous administration of 10.6 mCi Tc 99m Sestamibi - Cardiolite resting SP ECT images acquired 52 minutes post injection. The patient received 0.4mg Lexiscan, 26.8 mCi Tc 99m Sestamibi - Stress images obtained [address] injection FINDINGS: Review of stress and rest SPECT images demonstrates no distinct perfusion abnormality on stress imagi ng, some decreased uptake noted on rest images along the inferolateral left ventricle greater than on stress images. Gated analysis shows normal wall motion with an estimated left ventricular ejection fraction of 50 %. IMPRESSION: No scintigraphic evidence for reversible ischemia.
--- NOTE | 2018-02-23 12:37 | EST ---
EXERCISE STRESS AGE: 67 SEX: M HT: 66" WT: 183 PROTOCOL: Lexiscan Cardiolite Stress Test HEART RATE REST: 59 BLOOD PRESSURE REST: 145/79 MAXIMUM HEART RATE ACHIEVED: 93 MAXIMUM BLOOD PRESSURE: 160/73 85% MPHR: 130 100% MPHR: 153 INDICATIONS: Abnormal EKG. CLINICAL INFORMATION: Baseline rhythm is sinus mechanism, rate 59, normal axis, intervals, normal echocardiogram. Baseline blood pressure 145/79 mmHg. Patient received an injection of Lexiscan. Electrocardiographic monitoring revealed no evidence of diagnostic ischemic ST deviation. Cardiolite was injected per protocol. CONCLUSION: 1. Nondiagnostic electrocardiograph stress testing. 2. Nuclear images will be reported separately. MMODL / IJN: [id number] /
== END | disposition home or self-care (01) ==
LOC: RADNMMAIN 07:45
PROVIDERS: ATTEND Family Medicine
DX: R94.31 Abnormal electrocardiogram [ECG] [EKG] (principal)
CPT/HCPCS: 93017; 78452; A9500; J2785

== ENCOUNTER → 2018-05-07 | Outpatient (CLI) | payer MEDICARE ==
[2018-05-07 10:04] LABS: HCT 39.8 % (39.0-53.0); HGB 13.6 gm/dL (13.0-17.5); MCH 29.9 pg (25.0-35.0); MCHC 34.2 g/dL (31.0-37.0); MCV 87.4 fL (80.0-100.0); Mean Platelet Volume 5.8; Platelet Count 181 k/uL (150-450); RBC 4.55 m/uL (4.30-5.90); RDW 12.9 % (11.5-15.5); WBC 3.3 k/uL (3.8-10.6)
[2018-05-07 18:34] LABS: Albumin 4.2 g/dL (3.80-4.90); Albumin/Globulin Ratio 2.1 (1.60-3.17); Anion Gap 4.7 mmol/L (4.00-12.00); Calcium 9.3 mg/dL (8.7-10.3); Carbon Dioxide 29.3 mmol/L (21.6-31.8); Potassium 4.6 mmol/L (3.5-5.5); Total Bilirubin 0.5 mg/dL (0.3-1.2); Total Protein 6.2 g/dL (6.2-8.2)
[2018-05-07 18:35] LABS: T4, Free (Free Thyroxine) 1.3 ng/dL (0.80-1.80)
== END | disposition home or self-care (01) ==
LOC: LABWHC1 08:42
PROVIDERS: ATTEND Family Medicine
DX: E11.9 Type 2 diabetes mellitus without complications (principal); E78.5 Hyperlipidemia, unspecified; R42 Dizziness and giddiness
CPT/HCPCS: 36415; 80053; 84439; 84443; 85027

== ENCOUNTER → 2018-06-07 | Outpatient (CLI) | payer MEDICARE ==
[2018-06-07 17:15] LABS: Anion Gap 11.2 mmol/L (4.00-12.00); Calcium 9.5 mg/dL (8.7-10.3); Carbon Dioxide 25.8 mmol/L (21.6-31.8); LDL Cholesterol,Calculated 96.4 mg/dL (0.0-131.0); Potassium 4.7 mmol/L (3.5-5.5); VLDL Calculation 52.6 mg/dL (5.00-40.00)
== END | disposition home or self-care (01) ==
LOC: LABWHC1 09:43
PROVIDERS: ATTEND Family Medicine
DX: E11.9 Type 2 diabetes mellitus without complications (principal); E78.5 Hyperlipidemia, unspecified
CPT/HCPCS: 36415; 80048; 80061

== ENCOUNTER → 2018-08-01 | Outpatient (CLI) | payer MEDICARE ==
[2018-08-01 10:19] LABS: Basophils % (A) 1 %; Eosinophils # (A) 0.1 k/uL (0-0.7); Eosinophils % (A) 3 %; HCT 37.2 % (39.0-53.0); HGB 12.4 gm/dL (13.0-17.5); Lymphocytes # (A) 0.5 k/uL (1.0-4.8); Lymphocytes % (A) 20 %; MCH 29.9 pg (25.0-35.0); MCHC 33.5 g/dL (31.0-37.0); MCV 89.4 fL (80.0-100.0); Monocytes # (A) 0.2 k/uL (0-1.0); Monocytes % (A) 7 %; Neutrophils # (A) 1.6 k/uL (1.3-7.7); Neutrophils % (A) 66 %; Platelet Count 245 k/uL (150-450); RBC 4.16 m/uL (4.30-5.90); RDW 14.3 % (11.5-15.5); WBC 2.3 k/uL (3.8-10.6)
[2018-08-01 17:11] LABS: Hemoglobin A1C 7.2 % (4.0-6.0)
[2018-08-01 18:58] LABS: Albumin 4.4 g/dL (3.80-4.90); Albumin/Globulin Ratio 2.1 (1.60-3.17); Anion Gap 11.3 mmol/L (4.00-12.00); Calcium 9.9 mg/dL (8.7-10.3); Carbon Dioxide 22.7 mmol/L (21.6-31.8); Globulin 2.1 g/dL (1.6-3.3); LDL Cholesterol,Calculated 95.6 mg/dL (0.0-131.0); Potassium 5.4 mmol/L (3.5-5.5); Total Bilirubin 0.4 mg/dL (0.2-1.2); Total Protein 6.5 g/dL (6.2-8.2); VLDL Calculation 19.4 mg/dL (5.00-40.00)
[2018-08-01 19:01] LABS: T4, Free (Free Thyroxine) 1.1 ng/dL (0.80-1.80)
== END ==
LOC: LABWHC1 08:35
PROVIDERS: ATTEND Radiology Radiation Oncology
DX: E11.9 Type 2 diabetes mellitus without complications (principal); E78.5 Hyperlipidemia, unspecified; M51.36 Other intervertebral disc degeneration, lumbar region; C61 Malignant neoplasm of prostate; Z87.891 Personal history of nicotine dependence
CPT/HCPCS: 36415; 80053; 80061; 83036; 84153; 84439; 84443; 85025

== ENCOUNTER → 2018-11-08 | Outpatient (CLI) | payer MEDICARE ==
[2018-11-08 08:33] LABS: Basophils % (A) 1 %; Eosinophils # (A) 0.1 k/uL (0-0.7); Eosinophils % (A) 5 %; HCT 38.3 % (39.0-53.0); HGB 13.3 gm/dL (13.0-17.5); Lymphocytes # (A) 0.6 k/uL (1.0-4.8); Lymphocytes % (A) 24 %; MCH 31.2 pg (25.0-35.0); MCHC 34.7 g/dL (31.0-37.0); Mean Platelet Volume 6.4; Monocytes # (A) 0.2 k/uL (0-1.0); Monocytes % (A) 9 %; Neutrophils # (A) 1.5 k/uL (1.3-7.7); Neutrophils % (A) 59 %; Platelet Count 224 k/uL (150-450); RBC 4.25 m/uL (4.30-5.90); RDW 13.3 % (11.5-15.5); WBC 2.5 k/uL (3.8-10.6)
[2018-11-08 12:06] LABS: African American GFR (CKD) 79.5 (60.0-200.0); Albumin 4.5 g/dL (3.80-4.90); Albumin/Globulin Ratio 2.25 (1.60-3.17); Anion Gap 9.9 mmol/L (4.00-12.00); BUN/Creat Ratio 19.09 Ratio (12.00-20.00); Calcium 10.1 mg/dL (8.7-10.3); Carbon Dioxide 27.1 mmol/L (21.6-31.8); Chol/HDL Ratio 4.97; LDL Cholesterol,Calculated 97.2 mg/dL (0.0-131.0); Potassium 5.5 mmol/L (3.5-5.5); Total Bilirubin 0.5 mg/dL (0.2-1.2); Total Protein 6.5 g/dL (6.2-8.2); VLDL Calculation 29.8 mg/dL (5.00-40.00)
== END | disposition home or self-care (01) ==
LOC: LABWHC1 07:34
PROVIDERS: ATTEND Family Medicine
DX: E11.9 Type 2 diabetes mellitus without complications (principal); E78.5 Hyperlipidemia, unspecified; M51.36 Other intervertebral disc degeneration, lumbar region
CPT/HCPCS: 36415; 80053; 80061; 83036; 84439; 84443; 85025

== ENCOUNTER → 2018-12-03 | Outpatient (CLI) | payer MEDICARE ==
--- NOTE | 2018-12-03 12:31 | XR ---
EXAMINATION TYPE: XR abdomen 1V DATE OF EXAM: 12/03/2018 COMPARISON: 03/21/2016 INDICATION: N20.0 TECHNIQUE: Single view abdomen supine view FINDINGS: There is a normal bowel gas pattern. Fecal debris is in the ascending and transverse colon. Psoas margins are normal. No organomegaly is present. Degenerative changes are at the lumbar spine. Postsurgical changes are within the pelvis. Phleboliths are likely within the pelvis and appears stab le from comparison. Suspicious calcifications are not identified. IMPRESSION: 1. Mild fecal retention.
== END | disposition home or self-care (01) ==
LOC: RADXRMAIN 11:31
PROVIDERS: ATTEND Urology
DX: K59.00 Constipation, unspecified (principal)
CPT/HCPCS: 74018

== ENCOUNTER → 2018-12-25 | Outpatient (CLI) | payer MEDICARE | END | disposition home or self-care (01) | LOC: LABWHC1 08:20 | PROVIDERS: ATTEND Radiology Radiation Oncology | DX: C61 Malignant neoplasm of prostate (principal); Z87.891 Personal history of nicotine dependence | CPT/HCPCS: 36415; 84153 ==

== ENCOUNTER → 2019-03-05 | Outpatient (CLI) | payer MEDICARE ==
[2019-03-05 09:31] LABS: Basophils % (A) 1 %; Eosinophils # (A) 0.1 k/uL (0-0.7); Eosinophils % (A) 4 %; HCT 36.4 % (39.0-53.0); HGB 12.6 gm/dL (13.0-17.5); Lymphocytes # (A) 0.5 k/uL (1.0-4.8); Lymphocytes % (A) 17 %; MCH 30.6 pg (25.0-35.0); MCHC 34.5 g/dL (31.0-37.0); MCV 88.8 fL (80.0-100.0); Mean Platelet Volume 6.6; Monocytes # (A) 0.2 k/uL (0-1.0); Monocytes % (A) 7 %; Neutrophils # (A) 1.9 k/uL (1.3-7.7); Neutrophils % (A) 69 %; Platelet Count 235 k/uL (150-450); WBC 2.7 k/uL (3.8-10.6)
[2019-03-05 16:35] LABS: African American GFR (CKD) 79.5 (60.0-200.0); Albumin 4.5 g/dL (3.80-4.90); Albumin/Globulin Ratio 2.37 (1.60-3.17); BUN/Creat Ratio 28.18 Ratio (12.00-20.00); Calcium 9.7 mg/dL (8.7-10.3); Chol/HDL Ratio 5.26; Globulin 1.9 g/dL (1.6-3.3); LDL Cholesterol,Calculated 112.4 mg/dL (0.0-131.0); Non-African American GFR(CKD) 68.6 (60.0-200.0); Total Bilirubin 0.4 mg/dL (0.2-1.2); Total Protein 6.4 g/dL (6.2-8.2); VLDL Calculation 32.6 mg/dL (5.00-40.00)
[2019-03-05 16:43] LABS: T4, Free (Free Thyroxine) 1.2 ng/dL (0.80-1.80)
[2019-03-05 18:05] LABS: Hemoglobin A1C 7.1 % (4.0-6.0)
== END | disposition home or self-care (01) ==
LOC: LABWHC1 08:03
PROVIDERS: ATTEND Family Medicine
DX: M51.36 Other intervertebral disc degeneration, lumbar region (principal); E11.9 Type 2 diabetes mellitus without complications; E78.5 Hyperlipidemia, unspecified
CPT/HCPCS: 36415; 80053; 80061; 83036; 84439; 84443; 85025

== ENCOUNTER → 2019-04-08 | Outpatient (CLI) | payer MEDICARE | END | disposition home or self-care (01) | LOC: LABWHC1 07:35 | PROVIDERS: ATTEND Urology | DX: C61 Malignant neoplasm of prostate (principal) | CPT/HCPCS: 36415; 84153 ==

== ENCOUNTER → 2019-07-12 | Outpatient (CLI) | payer MEDICARE ==
[2019-07-12 15:26] LABS: African American GFR (CKD) 71.6 (60.0-200.0); Albumin 4.5 g/dL (3.80-4.90); Albumin/Globulin Ratio 1.96 (1.60-3.17); Anion Gap 11.7 mmol/L (4.00-12.00); BUN/Creat Ratio 21.67 Ratio (12.00-20.00); Carbon Dioxide 22.3 mmol/L (21.6-31.8); Chol/HDL Ratio 6.04; Globulin 2.3 g/dL (1.6-3.3); LDL Cholesterol,Calculated 108.8 mg/dL (0.0-131.0); Non-African American GFR(CKD) 61.8 (60.0-200.0); Potassium 5.5 mmol/L (3.5-5.5); Total Bilirubin 0.4 mg/dL (0.3-1.2); Total Protein 6.8 g/dL (6.2-8.2); VLDL Calculation 32.2 mg/dL (5.00-40.00)
[2019-07-12 17:14] LABS: Hemoglobin A1C 7.6 % (4.0-6.0)
== END | disposition home or self-care (01) ==
LOC: LABWHC1 08:39
PROVIDERS: ATTEND Radiology Radiation Oncology
DX: C61 Malignant neoplasm of prostate (principal); E11.9 Type 2 diabetes mellitus without complications; Z92.3 Personal history of irradiation; Z87.891 Personal history of nicotine dependence
CPT/HCPCS: 36415; 80053; 80061; 83036; 84153

== ENCOUNTER → 2019-10-14 | Outpatient (CLI) | payer MEDICARE ==
[2019-10-14 08:46] LABS: Basophils % (A) 1 %; Eosinophils # (A) 0.1 k/uL (0-0.7); Eosinophils % (A) 4 %; HCT 38.4 % (39.0-53.0); HGB 12.8 gm/dL (13.0-17.5); Lymphocytes # (A) 0.6 k/uL (1.0-4.8); Lymphocytes % (A) 23 %; MCH 30.2 pg (25.0-35.0); MCHC 33.3 g/dL (31.0-37.0); MCV 90.7 fL (80.0-100.0); Mean Platelet Volume 6.8; Monocytes # (A) 0.2 k/uL (0-1.0); Monocytes % (A) 7 %; Neutrophils # (A) 1.7 k/uL (1.3-7.7); Neutrophils % (A) 64 %; Platelet Count 219 k/uL (150-450); RBC 4.23 m/uL (4.30-5.90); RDW 13.4 % (11.5-15.5); WBC 2.6 k/uL (3.8-10.6)
[2019-10-14 17:22] LABS: African American GFR (CKD) 64.5 (60.0-200.0); Albumin 4.3 g/dL (3.80-4.90); Albumin/Globulin Ratio 1.95 (1.60-3.17); Anion Gap 7.8 mmol/L (4.00-12.00); BUN/Creat Ratio 24.62 Ratio (12.00-20.00); Calcium 9.7 mg/dL (8.7-10.3); Carbon Dioxide 22.2 mmol/L (21.6-31.8); Chol/HDL Ratio 5.27; Globulin 2.2 g/dL (1.6-3.3); Non-African American GFR(CKD) 55.7 (60.0-200.0); Potassium 5.1 mmol/L (3.5-5.5); Total Bilirubin 0.4 mg/dL (0.3-1.2); Total Protein 6.5 g/dL (6.2-8.2)
[2019-10-14 17:30] LABS: T4, Free (Free Thyroxine) 0.9 ng/dL (0.80-1.80)
[2019-10-14 19:35] LABS: Hemoglobin A1C 7.3 % (4.0-6.0)
== END | disposition home or self-care (01) ==
LOC: LABWHC1 07:25
PROVIDERS: ATTEND Family Medicine
DX: E11.9 Type 2 diabetes mellitus without complications (principal); E78.5 Hyperlipidemia, unspecified; M51.36 Other intervertebral disc degeneration, lumbar region
CPT/HCPCS: 36415; 80053; 80061; 83036; 84439; 84443; 85025

== ENCOUNTER → 2020-01-15 | Outpatient (CLI) | payer MEDICARE ==
[2020-01-15 09:02] LABS: HCT 40.5 % (39.0-53.0); HGB 13.6 gm/dL (13.0-17.5); MCH 30.8 pg (25.0-35.0); MCHC 33.5 g/dL (31.0-37.0); MCV 92.1 fL (80.0-100.0); Mean Platelet Volume 6.7; Platelet Count 233 k/uL (150-450); WBC 3.6 k/uL (3.8-10.6)
[2020-01-15 16:40] LABS: Albumin 4.6 g/dL (3.80-4.90); Albumin/Globulin Ratio 2.09 (1.60-3.17); BUN/Creat Ratio 22.86 Ratio (12.00-20.00); Calcium 9.9 mg/dL (8.7-10.3); Chol/HDL Ratio 5.2; Globulin 2.2 g/dL (1.6-3.3); LDL Cholesterol,Calculated 94.2 mg/dL (0.0-131.0); Non-African American GFR(CKD) 50.9 (60.0-200.0); Total Bilirubin 0.4 mg/dL (0.3-1.2); Total Protein 6.8 g/dL (6.2-8.2); VLDL Calculation 31.8 mg/dL (5.00-40.00)
[2020-01-15 17:03] LABS: Hemoglobin A1C 7.6 % (4.0-6.0)
[2020-01-15 19:47] LABS: Urine Creatinine 72.9 mg/dL
== END | disposition home or self-care (01) ==
LOC: LABWHC1 07:31
PROVIDERS: ATTEND Family Medicine
DX: C61 Malignant neoplasm of prostate (principal); Z92.3 Personal history of irradiation; Z87.891 Personal history of nicotine dependence
CPT/HCPCS: 36415; 80053; 80061; 82043; 82570; 83036; 84153; 85027

== ENCOUNTER → 2020-04-16 | Outpatient (CLI) | payer MEDICARE ==
[2020-04-16 11:23] LABS: Basophils # (A) 0.03 X 10*3/uL (0.00-0.10); Basophils % (A) 0.9 %; Eosinophils # (A) 0.12 X 10*3/uL (0.04-0.35); Eosinophils % (A) 3.8 %; HCT 39.7 % (39.6-50.0); HGB 13.5 g/dL (13.0-17.0); Lymphocytes # (A) 0.74 X 10*3/uL (0.90-5.00); Lymphocytes % (A) 23.3 %; MCH 30.3 pg (27.0-32.0); Mean Platelet Volume 9.1 fL (9.5-12.2); Monocytes # (A) 0.28 X 10*3/uL (0.20-1.00); Monocytes % (A) 8.8 %; Neutrophils # (A) 1.98 X 10*3/uL (1.80-7.70); Neutrophils % (A) 62.6 %; Platelet Count 215 X 10*3/uL (140-440); RBC 4.46 X 10*6/uL (4.40-5.60); RDW 12.5 % (11.5-14.5); WBC 3.17 X 10*3/uL (4.50-10.00)
[2020-04-16 12:18] LABS: Albumin 4.8 g/dL (3.80-4.90); Albumin/Globulin Ratio 2.29 (1.60-3.17); Anion Gap 9.7 mmol/L (4.00-12.00); BUN/Creat Ratio 24.29 Ratio (12.00-20.00); Calcium 9.9 mg/dL (8.7-10.3); Carbon Dioxide 24.3 mmol/L (21.6-31.8); Chol/HDL Ratio 5.54; Globulin 2.1 g/dL (1.6-3.3); LDL Cholesterol,Calculated 83.6 mg/dL (0.0-131.0); Non-African American GFR(CKD) 50.9 (60.0-200.0); Potassium 5.4 mmol/L (3.5-5.5); Total Bilirubin 0.5 mg/dL (0.3-1.2); Total Protein 6.9 g/dL (6.2-8.2); VLDL Calculation 43.4 mg/dL (5.00-40.00)
[2020-04-16 12:26] LABS: T4, Free (Free Thyroxine) 1.1 ng/dL (0.80-1.80)
[2020-04-16 15:00] LABS: Hemoglobin A1C 7.3 % (4.0-6.0)
== END | disposition home or self-care (01) ==
LOC: LABWHC1 07:22
PROVIDERS: ATTEND Family Medicine
DX: E11.9 Type 2 diabetes mellitus without complications (principal); M54.31 Sciatica, right side; C61 Malignant neoplasm of prostate; E78.5 Hyperlipidemia, unspecified
CPT/HCPCS: 36415; 80053; 80061; 83036; 84439; 84443; 85025

== ENCOUNTER → 2020-07-16 | Outpatient (CLI) | payer MEDICARE ==
[2020-07-16 13:22] LABS: Basophils # (A) 0.02 X 10*3/uL (0.00-0.10); Basophils % (A) 0.7 %; Eosinophils # (A) 0.08 X 10*3/uL (0.04-0.35); Eosinophils % (A) 2.9 %; HCT 38.7 % (39.6-50.0); HGB 12.7 g/dL (13.0-17.0); Lymphocytes # (A) 0.67 X 10*3/uL (0.90-5.00); Lymphocytes % (A) 24.5 %; MCH 29.7 pg (27.0-32.0); MCHC 32.8 g/dL (32.0-37.0); MCV 90.6 fL (80.0-97.0); Monocytes # (A) 0.23 X 10*3/uL (0.20-1.00); Monocytes % (A) 8.4 %; Neutrophils # (A) 1.72 X 10*3/uL (1.80-7.70); Neutrophils % (A) 63.1 %; Platelet Count 205 X 10*3/uL (140-440); RBC 4.27 X 10*6/uL (4.40-5.60); RDW 12.7 % (11.5-14.5); WBC 2.73 X 10*3/uL (4.50-10.00)
[2020-07-16 14:00] LABS: African American GFR (CKD) 71.1 (60.0-200.0); Albumin 4.4 g/dL (3.80-4.90); Albumin/Globulin Ratio 2.2 (1.60-3.17); Anion Gap 9.4 mmol/L (4.00-12.00); Calcium 9.5 mg/dL (8.7-10.3); Carbon Dioxide 22.6 mmol/L (21.6-31.8); Chol/HDL Ratio 4.96; LDL Cholesterol,Calculated 88.6 mg/dL (0.0-131.0); Non-African American GFR(CKD) 61.3 (60.0-200.0); Potassium 5.6 mmol/L (3.5-5.5); Total Bilirubin 0.5 mg/dL (0.2-1.2); Total Protein 6.4 g/dL (6.2-8.2); VLDL Calculation 22.4 mg/dL (5.00-40.00)
[2020-07-16 15:44] LABS: Hemoglobin A1C 7.2 % (4.0-6.0)
== END | disposition home or self-care (01) ==
LOC: LABWHC1 07:24
PROVIDERS: ATTEND Radiology Radiation Oncology
DX: C61 Malignant neoplasm of prostate (principal); E78.5 Hyperlipidemia, unspecified; M51.36 Other intervertebral disc degeneration, lumbar region; E11.9 Type 2 diabetes mellitus without complications; Z92.3 Personal history of irradiation; Z87.891 Personal history of nicotine dependence
CPT/HCPCS: 36415; 80053; 80061; 83036; 84153; 84439; 84443; 85025

== ENCOUNTER → 2020-10-16 | Outpatient (CLI) | payer MEDICARE ==
[2020-10-16 15:03] LABS: HCT 35.7 % (39.6-50.0); HGB 11.7 g/dL (13.0-17.0); MCH 30.3 pg (27.0-32.0); MCHC 32.8 g/dL (32.0-37.0); MCV 92.5 fL (80.0-97.0); Mean Platelet Volume 8.6 fL (9.5-12.2); Platelet Count 250 X 10*3/uL (140-440); RBC 3.86 X 10*6/uL (4.40-5.60); WBC 2.88 X 10*3/uL (4.50-10.00)
[2020-10-16 16:16] LABS: Hemoglobin A1C 7.7 % (4.0-6.0)
[2020-10-16 19:26] LABS: African American GFR (CKD) 58.6 (60.0-200.0); Albumin 4.4 g/dL (3.80-4.90); Albumin/Globulin Ratio 1.57 (1.60-3.17); Anion Gap 10.1 mmol/L (4.00-12.00); BUN/Creat Ratio 22.14 Ratio (12.00-20.00); Calcium 9.6 mg/dL (8.7-10.3); Carbon Dioxide 23.9 mmol/L (21.6-31.8); Chol/HDL Ratio 5.53; Globulin 2.8 g/dL (1.6-3.3); LDL Cholesterol,Calculated 100.4 mg/dL (0.0-131.0); Non-African American GFR(CKD) 50.5 (60.0-200.0); Potassium 5.1 mmol/L (3.5-5.5); Total Bilirubin 0.5 mg/dL (0.3-1.2); Total Protein 7.2 g/dL (6.2-8.2); VLDL Calculation 35.6 mg/dL (5.00-40.00)
[2020-10-16 19:35] LABS: T4, Free (Free Thyroxine) 1.1 ng/dL (0.80-1.80)
== END | disposition home or self-care (01) ==
LOC: LABWHC1 08:41
PROVIDERS: ATTEND Family Medicine
DX: Z12.5 Encounter for screening for malignant neoplasm of prostate (principal); E11.9 Type 2 diabetes mellitus without complications
CPT/HCPCS: 36415; 80053; 80061; 82043; 82570; 83036; 84439; 84443; 85027

== ENCOUNTER → 2021-01-22 | Outpatient (CLI) | payer MEDICARE ==
[2021-01-22 15:10] LABS: Basophils # (A) 0.02 X 10*3/uL (0.00-0.10); Basophils % (A) 0.8 %; Eosinophils # (A) 0.09 X 10*3/uL (0.04-0.35); Eosinophils % (A) 3.5 %; HCT 37.2 % (39.6-50.0); HGB 12.5 g/dL (13.0-17.0); Lymphocytes # (A) 0.65 X 10*3/uL (0.90-5.00); MCH 30.8 pg (27.0-32.0); MCHC 33.6 g/dL (32.0-37.0); MCV 91.6 fL (80.0-97.0); Mean Platelet Volume 8.8 fL (9.5-12.2); Monocytes # (A) 0.27 X 10*3/uL (0.20-1.00); Monocytes % (A) 10.4 %; Neutrophils # (A) 1.55 X 10*3/uL (1.80-7.70); Neutrophils % (A) 59.5 %; Platelet Count 219 X 10*3/uL (140-440); RBC 4.06 X 10*6/uL (4.40-5.60); RDW 12.8 % (11.5-14.5)
[2021-01-22 16:41] LABS: BUN/Creat Ratio 22.22 Ratio (12.00-20.00); Chol/HDL Ratio 4.62 Ratio; Globulin 2.5 g/dL (1.6-3.3); LDL Cholesterol,Calculated 84.4 mg/dL (0.0-131.0)
[2021-01-22 16:42] LABS: ALT 22 U/L (10-49); AST 19 U/L (14-35); African American GFR (CKD) 66.5 (60.0-200.0); Albumin 4.5 g/dL (3.8-4.9); Albumin/Globulin Ratio 1.77 (1.60-3.17); Alkaline Phosphatase 92 U/L (41-126); Calcium 9.9 mg/dL (8.7-10.3); Carbon Dioxide 21.4 mmol/L (21.6-31.8); Chloride 106 mmol/L (96-109); Glucose 159 mg/dL (70-110); Non-African American GFR(CKD) 57.4 (60.0-200.0); Potassium 5.2 mmol/L (3.5-5.5); Sodium 140 mmol/L (135-145)
== END | disposition home or self-care (01) ==
LOC: LABWHC1 08:57
PROVIDERS: ATTEND Radiology Radiation Oncology
DX: C61 Malignant neoplasm of prostate (principal); E78.5 Hyperlipidemia, unspecified; E11.9 Type 2 diabetes mellitus without complications; Z85.46 Personal history of malignant neoplasm of prostate; Z92.3 Personal history of irradiation; Z87.891 Personal history of nicotine dependence
CPT/HCPCS: 36415; 80053; 80061; 83036; 84153; 84439; 84443; 85025

== ENCOUNTER → 2021-02-15 | Outpatient (CLI) | payer MEDICARE ==
[2021-02-15 09:20] LABS: HGB 13.4 gm/dL (13.0-17.5); MCHC 34.5 g/dL (31.0-37.0); MCV 87.1 fL (80.0-100.0); Mean Platelet Volume 6.8; Platelet Count 234 k/uL (150-450); RBC 4.48 m/uL (4.30-5.90)
[2021-02-15 09:24] LABS: Albumin 4.3 g/dL (3.5-5.0); Calcium 10.1 mg/dL (8.4-10.2); Potassium 5.4 mmol/L (3.5-5.1); Total Bilirubin 0.4 mg/dL (0.2-1.3); Total Protein 7.2 g/dL (6.3-8.2)
[2021-02-15 09:32] LABS: INR 0.9 (<1.2); Partial Thromboplastin Time 23.6 sec (22.0-30.0); Prothrombin Time 9.8 sec (9.0-12.0)
[2021-02-15 10:07] LABS: Appearance,Urine Clear (Clear); Bilirubin,Urine Negative (Negative); Blood,Urine Negative (Negative); Color,Urine Yellow; Glucose,Urine (UA) Negative (Negative); Ketones,Urine Negative (Negative); Leukocyte Esterase,Urine Negative (Negative); Nitrite,Urine Negative (Negative); Protein,Urine Negative (Negative); Specific Gravity,Urine 1.018 (1.001-1.035); Urobilinogen,Urine <2.0 mg/dL (<2.0)
== END | disposition home or self-care (01) ==
LOC: LABPAT 08:17
PROVIDERS: ATTEND Orthopaedic Surgery
DX: Z01.812 Encounter for preprocedural laboratory examination (principal); M25.362 Other instability, left knee
CPT/HCPCS: 36415; 80053; 81003; 85027; 85610; 85730; 87070

== ENCOUNTER 2021-03-01 05:37 | Day surgery (SDC) | payer MEDICARE ==
[2021-02-25 09:27] VITALS: BMI 30.9
[~2021-03-01 05:37] MED LIST changes: +ACETAMINOPHEN TAB 500 MG TAB PO PRN; +GABAPENTIN 300 MG CAP PO PRN; +MELOXICAM 7.5 MG TAB PO PRN; +ONDANSETRON 4 MG/2 ML VIAL IVP PRN; -REGADENOSON 0.4 MG/5 ML SYRINGE IV ONE; +TRANEXAMIC ACID 1,000 MG in SODIUM CHLORIDE 0.9% 100 ML IVPB PRN
[2021-03-01] MEDS ORDERED: ONDANSETRON 4 MG/2 ML VIAL IVP ONE (05:53)
[2021-03-01] MEDS ORDERED: DEXAMETHASONE SOD PHOSPHATE 4 MG/ML 1 ML VIAL IV ONE (05:53)
[2021-03-01] MEDS ORDERED: HYDROmorphone 0.5 MG/0.5 ML SYRINGE IVP PRN ×3 (05:53→07:03)
[2021-03-01] MEDS ORDERED: MIDAZOLAM 2 MG/2 ML VIAL IV PRN (05:53)
[2021-03-01 06:31] LABS: Glucose,Whole Blood 186 mg/dL (75-99)
[2021-03-01] MEDS ORDERED: MIDAZOLAM 2 MG/2 ML VIAL IVP ONE (06:43)
[2021-03-01] MEDS ORDERED: MIDAZOLAM 2 MG/2 ML VIAL ONE (07:02)
[2021-03-01] MEDS ORDERED: DEXAMETHASONE SOD PHOSPHATE 4 MG/ML 1 ML VIAL ONE (07:02)
[2021-03-01] MEDS ORDERED: PROPOFOL 10 MG/ML 20 ML VIAL IV ONE (07:02)
[2021-03-01] MEDS ORDERED: TRANEXAMIC ACID 1,000 MG/10 ML VIAL ONE (07:02)
[2021-03-01] MEDS ORDERED: ROPIVACAINE 5 MG/ML 30 ML VIAL ONE (07:02)
[2021-03-01] MEDS ORDERED: SODIUM CHLORIDE 0.9% 100 ML BAG ONE (07:02)
[2021-03-01] MEDS ORDERED: ePHEDrine 50 MG/ML 1 ML AMP ONE (07:02)
[2021-03-01] MEDS ORDERED: KETAMINE 10 MG/ML 20 ML VIAL ONE (07:02)
[2021-03-01] MEDS ORDERED: PHENYLEPHRINE-0.9% NACL SYG 1,000 MCG/10 ML SYRINGE ONE (07:02)
[2021-03-01] MEDS ORDERED: fentaNYL (PF) 50 MCG/ML 2 ML AMP ONE (07:02)
[2021-03-01] MEDS ORDERED: bisacodyL 10 MG SUPP RECTAL PRN (07:03)
[2021-03-01] MEDS ORDERED: NA PHOS,M-B/NA PHOS,DI-BA 133 ML ENEMA RECTAL PRN (07:03)
[2021-03-01] MEDS ORDERED: ONDANSETRON 4 MG/2 ML VIAL IVP PRN (07:03)
[2021-03-01] MEDS ORDERED: MAGNESIUM HYDROXIDE 2,400 MG/10 ML CUP PO PRN (07:03)
[2021-03-01] MEDS ORDERED: NALOXONE 0.4 MG/ML 1 ML VIAL IV PRN (07:03)
[2021-03-01] MEDS ORDERED: HYDROmorphone 0.2 MG/1 ML SYRINGE IVP PRN (07:03)
[2021-03-01] MEDS ORDERED: HYDROcodone/APAP 7.5-325MG 1 EACH TAB PO PRN ×2 (07:06)
[2021-03-01] MEDS: LACTATED RINGERS 1,000 ML IV SCH (07:07)
[2021-03-01] MEDS ORDERED: ceFAZolin 1,000 MG in SODIUM CHLORIDE 0.9% 1,000 ML IRRIGATION ONE (07:08)
[2021-03-01] MEDS ORDERED: LACTATED RINGERS 1,000 ML IV ONE (08:04)
[2021-03-01] MEDS ORDERED: ROPIVACAINE 0.2%-NS ON-Q PUMP 2 MG/ML EACH MISCELLANE ONE (09:30)
--- NOTE | 2021-03-01 09:42 | P.OP ---
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 The articulation is Oxinium on polyethylene. Anesthesia: spinal Surgeon: Ar Mccloud Paving Rammer #1: Kavitha Wiley Estimated Blood Loss (ml): 100 Pathology: other (Cultures 2) Condition: stable Disposition: PACU Indications for Procedure: This is a 70-year-old gentleman that has had a left total knee arthroplasty approximately 20 years ago. He has been experiencing pain and swelling and instability secondary to polyethylene wear. After discussing the surgical and nonsurgical treatment options with him at length he wishes to proceed with a revision total knee arthroplasty. Informed consent was obtained. Operative Findings: The operative findings are consistent with significant polyethylene wear and reactive synovitis. Description of Procedure: Patient was seen in the preoperative area consent was reviewed and operative site was marked with a skin marker. An adductor canal pain catheter and an iPACK block was placed by anesthesia in the preoperative area. Patient was then brought to the operating room and given preoperative antibiotics intravenously. A spinal anesthetic was administered by the anesthesia department. A tourniquet was placed on the upper thigh and the lower extremity was prepped and draped in usual sterile fashion. A gram of transexamic acid was given. A universal timeout was then performed which confirmed the patient's name, surgical site, ALLERGIES, and consent. The lower extremity was then exsanguinated and tourniquet was inflated to 250 mmHg. A standard and anterior midline approach to the knee was performed with the prior scar being excised.. The skin and subcutaneous tissue was dissected down to the patellar tendon. A medial parapatellar arthrotomy was then performed. The knee was then extended, the patellar was everted, and the knee was again flexed. The knee was then cultured 2. There was a significant amount of reactive synovitis secondary to polyethylene wear. The prosthesis was then evaluated and found to be intact. Using a small oscillating saw, the cement implant interface was disrupted and the femoral and tibial components were then removed without difficulty. Next, sequential reaming of the femoral canal was then performed by hand. The femur was then sized and the distal cutting block was then placed in the distal femur was then freshened with a cut. Next the 4-in-1 cutting block was then placed, and set for the appropriate rotation. Anterior posterior chamfer cuts were then performed as well as anterior posterior cuts. The trial femur was then placed with appropriate length stem. Next the box cutting guide was placed in the bone for the box was then reamed and removed. Femoral trial was then removed. Attention was then directed to the tibia. Sequential reaming of the tibial canal was then performed with appropriate size. The intramedullary tibial cutting guide was then placed the tibia was then freshened with a minimal resection. The tibia was then sized and the canal was prepared for the stem. The tibial trial was then placed and found to have a good fit. The femoral trial was then placed as well. Next, the insert trials were then sequentially used until the appropriate-sized insert was reached. Knee was able to fully extend and flex to 120 and was stable to varus and valgus and anterior posterior stresses throughout all range of motion. Trials were then removed. The cut surfaces of bone were then irrigated with pulsatile lavage. The knee was also irrigated with Irrisept solution. The components were then opened, the cement was mixed, and the components were then cemented in place. The cement was allowed to harden with the knee in full extension. After the cemented hardened. The tourniquet was released, and hemostasis was obtained. A second gram of transexamic acid was given. The knee was again irrigated. The knee was again taken through range of motion and found to be stable throughout all range of motion of 0-130, and the patella tracked normally. The fascia was then closed with #2 strata fix suture. The subcutaneous tissue was closed with 3-0 Vicryl and 3-0 strata fix. Exofin glue was used for the skin and placed with the knee in flexion. The patient was placed in a sterile silver dressing. Patient was then transferred to recovery room in stable condition. The animal assistant NIRMAL Melton was required due the complexity surgery and the need for a skilled surgical rn. She assisted in positioning, draping, retraction, and closure of the wound.
--- NOTE | 2021-03-01 09:51 | XR ---
EXAMINATION TYPE: XR knee limited LT DATE OF EXAM: 03/01/2021 COMPARISON: 10/30/2014 HISTORY: 70-year-old male evaluation for postoperative abnormality in alignment TECHNIQUE: 2 views FINDINGS: Images show placement of revision stemmed left total knee arthroplasty. Both tibial and distal femora l components of the prosthesis appear well seated. No periprosthetic fracture. Alignment grossly shanna omic. Anterior soft tissue swelling with scattered soft tissue air as well as intra-articular air rel ated to recent operation. Vascular calcifications. IMPRESSION: Uncomplicated postoperative appearance revision stemmed left total knee arthroplasty.
[2021-03-01 09:56] LABS: Glucose,Whole Blood 201 mg/dL (75-99)
--- NOTE | 2021-03-01 13:51 | P.ANPRN ---
Procedure Note - Anesthesia - Nerve Block Performed Left Adductor Canal Infusion Time Out Performed: Yes Date of Procedure: 03/01/21 Procedure Start Time: 06:42 Procedure Stop Time: 06:55 Location of Patient: PreOp Indication: Acute Post-Operative Pain, Requested by Surgeon Sedation Type: Sedate with meaningful contact maintained Preparation: Sterile Prep, Sterile Dressing Position: Supine Catheter: Indwelling Needle Types: Pajunk Needle Gauge: 21 Ultrasound used to visualize needle placement: Yes Ultrasound used to observe medication spread: Yes Blood Aspirated: No Pain Paresthesia on Injection Noted: No Resistance on Injection: Normal Image Stored and Saved: Yes Events: Uneventful and Well Tolerated (ropi .5% 20cc)
--- NOTE | 2021-03-01 13:52 | P.ANPRN ---
Procedure Note - Anesthesia - Nerve Block Performed Left iPack Single Time Out Performed: Yes Date of Procedure: 03/01/21 Procedure Start Time: 06:56 Procedure Stop Time: 06:59 Location of Patient: PreOp Indication: Acute Post-Operative Pain, Requested by Surgeon Sedation Type: Sedate with meaningful contact maintained Preparation: Sterile Prep Position: Supine Needle Types: Pajunk Needle Gauge: 21 Ultrasound used to visualize needle placement: Yes Ultrasound used to observe medication spread: Yes Blood Aspirated: No Pain Paresthesia on Injection Noted: No Resistance on Injection: Normal Image Stored and Saved: Yes Events: Uneventful and Well Tolerated (ropi .5% 25cc plus dexamethasone 4mg)
[2021-03-01 16:37] LABS: Glucose,Whole Blood 300 mg/dL (75-99)
[2021-03-01 18:26] VITALS: RESP 17
[2021-03-01] MEDS ORDERED: SENNOSIDES-DOCUSATE SODIUM 1 EACH TAB PO SCH (21:00)
[2021-03-01 21:12] LABS: Glucose,Whole Blood 351 mg/dL (75-99)
[2021-03-01] MEDS: SODIUM CHLORIDE 0.9% 1,000 ML IV SCH ×2 (21:47→22:37)
[2021-03-01] MEDS: INSULIN ASPART (NovoLOG) 100 UNIT/ML VIAL SQ SCH (21:48)
[2021-03-01] MEDS: ASPIRIN 325 MG TAB PO SCH (21:49)
[2021-03-02] MEDS: LACTATED RINGERS 1,000 ML IV SCH (01:41)
[2021-03-02 07:10] LABS: Glucose,Whole Blood 118 mg/dL (75-99)
[2021-03-02] MEDS: INSULIN ASPART (NovoLOG) 100 UNIT/ML VIAL SQ SCH (08:04)
--- NOTE | 2021-03-02 08:12 | P.DS ---
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 The patient presented for evaluation as an outpatient due to instability and pain in the left knee. X-rays revealed polyethylene wear. After discussion and consideration patient elects to proceed with revision left total knee arthroplasty. The patient is seen preoperatively by Dr. Mccloud and medically cleared for surgery by their primary care physician. Patient is admitted to [facility] on 03/01/2021 for revision left total knee arthroplasty. The procedure is performed without complication or sequelae. The patient is doing well postoperatively. Labs and vital signs are stable on day of discharge. On day of discharge patient's knee incision is healing well. There is minimal erythema. There is no drainage noted at this time. There is minimal soft tissue swelling to the knee. Patient has full foot and ankle motion without difficulty or pain. Calf is soft and nontender to palpation. Neurovascular status to the left lower extremity is intact. Patient is discharged home in good condition. Opioid start talking form is reviewed and signed. Please see med rec for accurate list of home medications. Plan - Discharge Summary Discharge Rx Participant: No New Discharge Prescriptions: New Aspirin 325 mg PO BID #60 tab Sennosides [Senokot] 2 tab PO DAILY PRN #60 tablet PRN Reason: Constipation HYDROcodone/APAP 7.5-325MG [[place] 7.5-325] 1 - 2 tab PO Q6H PRN #32 tab PRN Reason: Pain Ondansetron Odt [Zofran Odt] 1 tab PO Q8HR PRN #10 tab PRN Reason: Nausea No Action Ibuprofen [Motrin] 400 mg PO Q8HR PRN PRN Reason: Pain Aspirin 81 mg PO DAILY gemfibroziL [Lopid] 600 mg PO AC-BID Glimepiride [Amaryl] 2 mg PO DAILY metFORMIN HCL [metFORMIN HCL ER Osmotic] 1,000 mg PO BID Multivit-Min/FA/Lycopen/Lutein [Centrum Silver Tablet] 1 each PO DAILY Oxybutynin Chloride 5 mg PO QAM Irbesartan [Avapro] 150 mg PO DAILY Discharge Medication List Aspirin 81 mg PO DAILY 04/25/17 [History] Ibuprofen [Motrin] 400 mg PO Q8HR PRN 04/25/17 [History] gemfibroziL [Lopid] 600 mg PO AC-BID 04/25/17 [History] Glimepiride [Amaryl] 2 mg PO DAILY 02/25/21 [History] Irbesartan [Avapro] 150 mg PO DAILY 02/25/21 [History] Multivit-Min/FA/Lycopen/Lutein [Centrum Silver Tablet] 1 each PO DAILY 02/25/21 [History] Oxybutynin Chloride 5 mg PO QAM 02/25/21 [History] metFORMIN HCL [metFORMIN HCL ER Osmotic] 1,000 mg PO BID 02/25/21 [History] Aspirin 325 mg PO BID #60 tab 03/01/21 [Rx] HYDROcodone/APAP 7.5-325MG [[place] 7.5-325] 1 - 2 tab PO Q6H PRN #32 tab 03/01/21 [Rx] Ondansetron Odt [Zofran Odt] 1 tab PO Q8HR PRN #10 tab 03/01/21 [Rx] Sennosides [Senokot] 2 tab PO DAILY PRN #60 tablet 03/01/21 [Rx] Follow up Appointment(s)/Referral(s): Ar Mccloud DO [Doctor of Osteopathic Medicine] - 2 Weeks Activity/Diet/Wound Care/Special Instructions: Weightbearing as tolerated with a walker. CPM 5-6h daily as tolerated. Leave dressing intact. Dressing may be removed by home care nurse or by patient in 7 days. Then change dressing twice daily until follow up. May shower with initial dressing intact and after removal. If dressing become saturated, please remove. Recommend use of compression stockings daily until follow up to help prevent swelling and blood clots. May remove at night before sleeping. Please take aspirin 325mg twice daily for 30 days to prevent blood clots. Please follow up with [facility] and call with any questions or concerns, . Discharge Disposition: HOME WITH HOME HEALTH SERVICES
[2021-03-02 08:14] VITALS: BP 159/85; PULSE 93; TEMP 97.6
[2021-03-02] MEDS: ASPIRIN 325 MG TAB PO SCH (08:16)
[2021-03-02] MEDS: SODIUM CHLORIDE 0.9% 1,000 ML IV SCH (08:18)
--- NOTE | 2021-03-02 08:42 | P.CONS ---
History of Present Illness - Reason for Consult Consult date: 03/02/21 Medical management - Chief Complaint Knee repair - History of Present Illness This is a history and physical on a 70-year-old white male with known history of diabetes, which is fairly well-controlled who has an underlying history of DJD. The knee was repaired with revision. The patient states pain control is nominal. No voiding difficulties. Blood sugar is somewhat labile but to be expected postoperatively. No sniffing chest pain or shortness of breath. No nausea, vomiting or diarrhea. Review of Systems All systems: negative Past Medical History Past Medical History: Diabetes Mellitus, Hyperlipidemia, Osteoarthritis (OA) Additional Past Medical History / Comment(s): remote hs of gout, kidney stone, elevated triglycerides(on rx), basal cell ca, beginnings of cataracts, 10-02-15 ureteral obstruction,idc placed at [facility] 10-02-15, pt states last bm was monday09-27-15. History of Any Multi-Drug Resistant Organisms: None Reported Past Surgical History: Orthopedic Surgery, Tonsillectomy Additional Past Surgical History / Comment(s): orif of left ankle and right ankle. left knee replacment, colonoscopy-clear, rt eye lid sx Past Anesthesia/Blood Transfusion Reactions: No Reported Reaction Past Psychological History: No Psychological Hx Reported Smoking Status: Never smoker Past Alcohol Use History: Occasional Additional Past Alcohol Use History / Comment(s): smoked x 3 years ,quit 1969 Past Drug Use History: None Reported Additional Drug Use History / Comment(s): CBD - Past Family History Father Family Medical History: Cancer Additional Family Medical History / Comment(s): prostate cancer Mother Family Medical History: Hypertension Additional Family Medical History / Comment(s): osteoporosis Brother(s) Family Medical History: Cancer Additional Family Medical History / Comment(s): upper jaw Medications and Allergies Home Medications Medication Instructions Recorded Confirmed Type Aspirin 81 mg PO DAILY 04/25/17 02/25/21 History Ibuprofen [Motrin] 400 mg PO Q8HR PRN 04/25/17 02/25/21 History gemfibroziL [Lopid] 600 mg PO AC-BID 04/25/17 02/25/21 History Glimepiride [Amaryl] 2 mg PO DAILY 02/25/21 02/25/21 History Irbesartan [Avapro] 150 mg PO DAILY 02/25/21 02/25/21 History Multivit-Min/FA/Lycopen/Lutein 1 each PO DAILY 02/25/21 02/25/21 History [Centrum Silver Tablet] Oxybutynin Chloride 5 mg PO QAM 02/25/21 02/25/21 History metFORMIN HCL [metFORMIN HCL ER 1,000 mg PO BID 02/25/21 02/25/21 History Osmotic] Aspirin 325 mg PO BID #60 tab 03/01/21 Rx HYDROcodone/APAP 7.5-325MG [[place] 1 - 2 tab PO Q6H PRN #32 tab 03/01/21 Rx 7.5-325] Ondansetron Odt [Zofran Odt] 1 tab PO Q8HR PRN #10 tab 03/01/21 Rx Sennosides [Senokot] 2 tab PO DAILY PRN #60 tablet 03/01/21 Rx Allergies Allergy/AdvReac Type Severity Reaction Status Date / Time No Known Allergies Allergy Verified 03/01/21 05:57 Physical Exam Vitals: Vital Signs Temp Pulse Pulse Resp BP Pulse Ox 03/02/21 06:00 97.6 F 93 17 159/85 95 03/02/21 02:00 98.0 F 63 17 126/72 94 L 03/01/21 18:25 98.1 F 75 17 130/70 89 L 03/01/21 16:36 98.2 F 76 155/76 94 L 03/01/21 14:00 66 16 117/54 93 L 03/01/21 13:00 64 16 152/76 93 L 03/01/21 12:15 83 16 148/71 95 03/01/21 11:45 66 16 129/60 96 03/01/21 11:15 65 16 126/60 91 L 03/01/21 11:00 59 L 16 126/60 92 L 03/01/21 10:45 58 L 16 125/60 92 L 03/01/21 10:30 61 16 126/57 93 L 03/01/21 10:15 53 L 16 123/58 96 03/01/21 10:00 55 L 16 120/60 92 L 03/01/21 09:45 53 L 16 128/60 97 03/01/21 09:30 52 L 16 132/59 98 03/01/21 09:15 98.6 F 55 L 12 103/54 95 Intake and Output 03/01/21 03/02/21 03/02/21 22:59 06:59 14:59 Intake Total 340 940 Output Total 470 Balance -130 940 Intake: IV 340 840 Sodium Chloride 0.9% 1, 140 840 000 ml @ 70 mls/hr IV . [id number] [facility] Rx#:[id number] Intake, IV Titration 100 Amount ceFAZolin 2 gm In Sodium 100 Chloride 0.9% 50 ml @ 100 mls/hr IVPB Q8HR [facility] Rx# :[id number] Output: Urine 470 Other: Voiding Method Urinal # Voids 2 Weight 83 kg - Constitutional General appearance: no acute distress - EENT Eyes: EOMI - Neck Neck: no lymphadenopathy - Respiratory Respiratory: bilateral: CTA - Cardiovascular Rhythm: regular Heart sounds: normal: S1, S2 Abnormal Heart Sounds: no S3 Gallop - Gastrointestinal General gastrointestinal: soft, no tenderness - Neurologic Neurologic: CNII-XII intact Results CBC & Chem 7: 03/01/21 06:25 Labs: Abnormal Lab Results - Last 24 Hours (Table) 03/01/21 03/01/21 03/01/21 Range/Units 09:54 16:36 21:11 POC Glucose (mg/dL) 201 H 300 H 351 H (75-99) mg/dL 03/02/21 Range/Units 07:08 POC Glucose (mg/dL) 118 H (75-99) mg/dL Microbiology - Last 24 Hours (Table) 03/01/21 07:35 Gram Stain - Preliminary Knee - Left Wound Culture - Preliminary 03/01/21 07:35 Gram Stain - Preliminary Knee - Left Wound Culture - Preliminary 03/01/21 07:35 Anaerobic Culture - Preliminary Knee - Left 03/01/21 07:35 Anaerobic Culture - Preliminary Knee - Left Assessment and Plan (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 Current Visit: Yes Status: Acute Code(s): T84.068A - WEAR OF ARTIC BEARING SURFACE OF INTERNAL PROSTH JOINT, INIT; Z96.659 - PRESENCE OF UNSPECIFIED ARTIFICIAL KNEE JOINT SNOMED Code(s): 919662172 (2) S/P revision of total knee Current Visit: Yes Status: Acute Code(s): Z96.659 - PRESENCE OF UNSPECIFIED ARTIFICIAL KNEE JOINT SNOMED Code(s): 6041961981460 (3) Diabetes Current Visit: No Status: Acute Code(s): E11.9 - TYPE 2 DIABETES MELLITUS WITHOUT COMPLICATIONS SNOMED Code(s): 81285945 (4) Primary osteoarthritis of right knee Current Visit: No Status: Acute Code(s): M17.11 - UNILATERAL PRIMARY OSTEOARTHRITIS, RIGHT KNEE SNOMED Code(s): 407405623238656 Plan: Follow standard postop protocol for orthopedic team. Reconcile home medications. Continue sliding scale. Anticipate discharge later today.
[2021-03-02] MEDS ORDERED: MELOXICAM 7.5 MG TAB PO SCH (09:00)
[2021-03-02 09:37] LABS: Basophils # (A) 0.01 X 10*3/uL (0.00-0.10); Basophils % (A) 0.2 %; Eosinophils # (A) 0.03 X 10*3/uL (0.04-0.35); Eosinophils % (A) 0.5 %; HCT 33.6 % (39.6-50.0); HGB 10.8 g/dL (13.0-17.0); Lymphocytes % (A) 14.4 %; MCH 29.2 pg (27.0-32.0); MCHC 32.1 g/dL (32.0-37.0); MCV 90.8 fL (80.0-97.0); Mean Platelet Volume 8.8 fL (9.5-12.2); Monocytes # (A) 0.43 X 10*3/uL (0.20-1.00); Monocytes % (A) 7.8 %; Neutrophils # (A) 4.25 X 10*3/uL (1.80-7.70); Neutrophils % (A) 76.7 %; Platelet Count 190 X 10*3/uL (140-440); RDW 12.6 % (11.5-14.5); WBC 5.54 X 10*3/uL (4.50-10.00)
--- NOTE | 2021-03-02 10:52 | P.PN ---
Progress Note - Text Progress Note Date: 03/02/21 Postoperative day # 1 status post total knee arthroplasty, and adductor canal catheter placed for postoperative analgesia, currently at ropivacaine 0.2% 8 mL per hour and continuous infusion, visual analogue scale is 2/10, patient using oral pain medication for breakthrough pain. Assessment and plan= Acute postoperative pain, adductor canal catheter for pain control, pain is well controlled we'll continue the same management.
[2021-03-02 11:37] LABS: Glucose,Whole Blood 185 mg/dL (75-99)
== END 2021-03-02 12:01 | disposition home health service (06) ==
LOC: OR 05:37 → 4SSUR 09:11 → OR 03-02 12:01
PROVIDERS: ATTEND Orthopaedic Surgery
DX: T84.063A Wear of articular bearing surface of internal prosthetic left knee joint, initial encounter (principal); E11.9 Type 2 diabetes mellitus without complications; H91.90 Unspecified hearing loss, unspecified ear; Z85.46 Personal history of malignant neoplasm of prostate; Z97.3 Presence of spectacles and contact lenses; Z79.84 Long term (current) use of oral hypoglycemic drugs; Z79.1 Long term (current) use of non-steroidal anti-inflammatories (NSAID); Z79.82 Long term (current) use of aspirin; Z79.899 Other long term (current) drug therapy
CPT/HCPCS: 97162; 64999; 64448; 76942; 84132; 85025; 87070; 87205; 87075; 83036; 87635; 73560; 27487; C1713; C1776; J2250; J1100; J0690 ×3; J2405; J2795

== ENCOUNTER → 2021-05-04 | Outpatient (CLI) | payer MEDICARE ==
[2021-05-04 14:52] LABS: HCT 40.1 % (39.6-50.0); HGB 12.6 g/dL (13.0-17.0); MCH 28.8 pg (27.0-32.0); MCHC 31.4 g/dL (32.0-37.0); MCV 91.6 fL (80.0-97.0); Mean Platelet Volume 8.8 fL (9.5-12.2); NRBC Per 100 WBC 0 /100 WBCS (0.0-0.0); Platelet Count 200 X 10*3/uL (140-440); RBC 4.38 X 10*6/uL (4.40-5.60); RDW 13.2 % (11.5-14.5); WBC 3.33 X 10*3/uL (4.50-10.00)
[2021-05-04 15:12] LABS: African American GFR (CKD) 69.9 (60.0-200.0); Albumin 4.6 g/dL (3.8-4.9); Albumin/Globulin Ratio 1.85 (1.60-3.17); Anion Gap 12.1 mmol/L (10.00-18.00); BUN/Creat Ratio 19.09 Ratio (12.00-20.00); Blood Urea Nitrogen 23.1 mg/dL (9.0-27.0); Calcium 10.3 mg/dL (8.7-10.3); Carbon Dioxide 22.8 mmol/L (20.0-27.5); Globulin 2.5 g/dL (1.6-3.3); Non-African American GFR(CKD) 60.3 (60.0-200.0); Potassium 5.6 mmol/L (3.5-5.5); Total Bilirubin 0.3 mg/dL (0.30-1.20); Total Protein 7.2 g/dL (6.2-8.2)
== END | disposition home or self-care (01) ==
LOC: LABWHC1 08:12
PROVIDERS: ATTEND Family Medicine
DX: E10.9 Type 1 diabetes mellitus without complications (principal)
CPT/HCPCS: 36415; 80053; 83036; 85027

== ENCOUNTER → 2021-08-05 | Outpatient (CLI) | payer MEDICARE ==
[2021-08-05 23:02] LABS: Basophils # (A) 0.03 X 10*3/uL (0.00-0.10); Eosinophils # (A) 0.08 X 10*3/uL (0.04-0.35); Eosinophils % (A) 2.6 %; HCT 39.9 % (39.6-50.0); HGB 12.7 g/dL (13.0-17.0); Immature Grans, Automated 0.6 %; Lymphocytes # (A) 0.66 X 10*3/uL (0.90-5.00); Lymphocytes % (A) 21.4 %; MCH 29.1 pg (27.0-32.0); MCHC 31.8 g/dL (32.0-37.0); MCV 91.3 fL (80.0-97.0); Monocytes # (A) 0.23 X 10*3/uL (0.20-1.00); Monocytes % (A) 7.5 %; NRBC Per 100 WBC 0 /100 WBCS (0.0-0.0); Neutrophils # (A) 2.06 X 10*3/uL (1.80-7.70); Neutrophils % (A) 66.9 %; Platelet Count 232 X 10*3/uL (140-440); RBC 4.37 X 10*6/uL (4.40-5.60); WBC 3.08 X 10*3/uL (4.50-10.00)
[2021-08-05 23:06] LABS: ALT 24 U/L (10-49); AST 20 U/L (14-35); African American GFR (CKD) 68.5 (60.0-200.0); Albumin 4.6 g/dL (3.8-4.9); Alkaline Phosphatase 93 U/L (41-126); BUN/Creat Ratio 24.72 Ratio (12.00-20.00); Blood Urea Nitrogen 30.4 mg/dL (9.0-27.0); Calcium 10.1 mg/dL (8.7-10.3); Carbon Dioxide 23.5 mmol/L (20.0-27.5); Chloride 104 mmol/L (96-109); Chol/HDL Ratio 5.52 Ratio; Globulin 2.5 g/dL (1.6-3.3); Glucose 130 mg/dL (70-110); LDL Cholesterol,Calculated 102.7 mg/dL (0.0-131.0); Non-African American GFR(CKD) 59.1 (60.0-200.0); Potassium 5.3 mmol/L (3.5-5.5); Sodium 138 mmol/L (135-145); Total Protein 7.1 g/dL (6.2-8.2)
[2021-08-06 04:47] LABS: Urine Creatinine 62.2 mg/dL (39.0-259.0)
== END | disposition home or self-care (01) ==
LOC: LABWHC1 08:51
PROVIDERS: ATTEND Family Medicine
DX: E11.9 Type 2 diabetes mellitus without complications (principal); E78.5 Hyperlipidemia, unspecified; M17.12 Unilateral primary osteoarthritis, left knee
CPT/HCPCS: 36415; 80053; 80061; 82043; 82570; 83036; 85025

== ENCOUNTER → 2021-11-10 | Outpatient (CLI) | payer MEDICARE ==
[2021-11-10 11:17] LABS: HCT 37.3 % (39.6-50.0); HGB 12.7 g/dL (13.0-17.0); MCH 30.2 pg (27.0-32.0); MCV 88.6 fL (80.0-97.0); Mean Platelet Volume 8.8 fL (9.5-12.2); NRBC Per 100 WBC 0 /100 WBCS (0.0-0.0); Platelet Count 209 X 10*3/uL (140-440); RBC 4.21 X 10*6/uL (4.40-5.60); RDW 12.7 % (11.5-14.5); WBC 3.24 X 10*3/uL (4.50-10.00)
[2021-11-10 11:27] LABS: African American GFR (CKD) 55.8 (60.0-200.0); Albumin 4.5 g/dL (3.8-4.9); Albumin/Globulin Ratio 1.65 (1.60-3.17); Anion Gap 11.1 mmol/L (10.00-18.00); BUN/Creat Ratio 19.72 Ratio (12.00-20.00); Blood Urea Nitrogen 28.6 mg/dL (9.0-27.0); Calcium 10.1 mg/dL (8.7-10.3); Carbon Dioxide 21.8 mmol/L (20.0-27.5); Globulin 2.8 g/dL (1.6-3.3); Non-African American GFR(CKD) 48.1 (60.0-200.0); Potassium 4.8 mmol/L (3.5-5.5); Total Bilirubin 0.3 mg/dL (0.30-1.20); Total Protein 7.3 g/dL (6.2-8.2)
[2021-11-11 00:33] LABS: T4, Free (Free Thyroxine) 1.01 ng/dL (0.800-1.800)
== END | disposition home or self-care (01) ==
LOC: LABWHC1 07:45
PROVIDERS: ATTEND Family Medicine
DX: E11.9 Type 2 diabetes mellitus without complications (principal)
CPT/HCPCS: 36415; 80053; 84439; 84443; 85027

== ENCOUNTER 2021-11-18 07:55 | Inpatient (IN) | payer MEDICARE ==
[2021-11-18] MEDS ORDERED: SODIUM CHLORIDE 0.9% 500 ML 500 ML IV STA (07:59)
--- NOTE | 2021-11-18 08:02 | ED ---
General Adult HPI - General Stated complaint: CVA Time Seen by Provider: 11/18/21 07:55 Source: patient, RN notes reviewed, old records reviewed - History of Present Illness Initial comments: This is a 71-year-old male who presents emergency Department with slight slurred speech and right-sided paralysis. Patient states yesterday about noon is arm felt a little weaker but he continued about his daily chores and he states it w as a little painful as well. Patient states she eventually went to bed last night he woke up this morning and he could not move his arm or his leg normally. Patient states he speech is also abnormal. Patient denies any visual disturbance. Patient denies any headache patient denies any recent injury or trauma. Patient is chest pain palpitations difficulty breathing shortness of breath per patient denies any recent fever chills or cough. Patient has no history of stroke. Patient states he is a diabetic. - Related Data Home Medications Medication Instructions Recorded Confirmed Aspirin 81 mg PO DAILY 04/25/17 02/25/21 Ibuprofen [Motrin] 400 mg PO Q8HR PRN 04/25/17 02/25/21 gemfibroziL [Lopid] 600 mg PO AC-BID 04/25/17 02/25/21 Glimepiride [Amaryl] 2 mg PO DAILY 02/25/21 02/25/21 Irbesartan [Avapro] 150 mg PO DAILY 02/25/21 02/25/21 Multivit-Min/FA/Lycopen/Lutein 1 each PO DAILY 02/25/21 02/25/21 [Centrum Silver Tablet] Oxybutynin Chloride 5 mg PO QAM 02/25/21 02/25/21 metFORMIN HCL [metFORMIN HCL ER 1,000 mg PO BID 02/25/21 02/25/21 Osmotic] Previous Rx's Medication Instructions Recorded Aspirin 325 mg PO BID #60 tab 03/01/21 HYDROcodone/APAP 7.5-325MG [[place] 1 - 2 tab PO Q6H PRN #32 tab 03/01/21 7.5-325] Ondansetron Odt [Zofran Odt] 1 tab PO Q8HR PRN #10 tab 03/01/21 Sennosides [Senokot] 2 tab PO DAILY PRN #60 tablet 03/01/21 Allergies Allergy/AdvReac Type Severity Reaction Status Date / Time No Known Allergies Allergy Verified 03/01/21 05:57 Review of Systems ROS Statement: Those systems with pertinent positive or pertinent negative responses have been documented in the HPI. ROS Other: All systems not noted in ROS Statement are negative. Past Medical History Past Medical History: Diabetes Mellitus, Hyperlipidemia, Osteoarthritis (OA) Additional Past Medical History / Comment(s): remote hs of gout, kidney stone, elevated triglycerides(on rx), basal cell ca, beginnings of cataracts, 10-02-15 ureteral obstruction,idc placed at [facility] [place] 10-02-15, pt states last bm was monday09-27-15. History of Any Multi-Drug Resistant Organisms: None Reported Past Surgical History: Orthopedic Surgery, Tonsillectomy Additional Past Surgical History / Comment(s): orif of left ankle and right ankle. left knee replacment, colonoscopy-clear, rt eye lid sx Past Anesthesia/Blood Transfusion Reactions: No Reported Reaction Past Psychological History: No Psychological Hx Reported Past Alcohol Use History: Occasional Additional Past Alcohol Use History / Comment(s): smoked x 3 years ,quit 1969 Past Drug Use History: None Reported - Past Family History Father Family Medical History: Cancer Additional Family Medical History / Comment(s): prostate cancer Mother Family Medical History: Hypertension Additional Family Medical History / Comment(s): osteoporosis Brother(s) Family Medical History: Cancer Additional Family Medical History / Comment(s): upper jaw General Exam - General Exam Comments Initial Comments: GENERAL: Patient is well-developed and well-nourished. Patient is nontoxic and well- hydrated and is in mild distress. ENT: Neck is soft and supple. No significant lymphadenopathy is noted. Oropharynx is clear. Moist mucous membranes. Neck has full range of motion without eliciting any pain. EYES: The sclera were anicteric and conjunctiva were pink and moist. Extraocular movements were intact and pupils were equal round and reactive to light. Eyelids were unremarkable. PULMONARY: Unlabored respirations. Good breath sounds bilaterally. No audible rales rhonchi or wheezing was noted. CARDIOVASCULAR: There is a regular rate and rhythm without any murmurs gallops or rubs. ABDOMEN: Soft and nontender with normal bowel sounds. SKIN: Skin is clear with no lesions or rashes and otherwise unremarkable. NEUROLOGIC: Patient is alert and oriented x3. Patient has very slight right-sided facial droop. 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 Patient is unable to lift the arm off the bed and unable to lift the leg off the bed at all. Patient's speech is slightly slurred MUSCULOSKELETAL: Normal extremities with adequate strength and full range of motion. No lower extremity swelling or edema. No calf tenderness. LYMPHATICS: No significant lymphadenopathy is noted PSYCHIATRIC: Normal psychiatric evaluation. Course Vital Signs 11/18/21 11/18/21 11/18/21 07:56 08:20 08:41 Temperature 98.0 F Pulse Rate 76 78 66 Respiratory 16 16 16 Rate Blood Pressure 172/82 170/81 O2 Sat by Pulse 93 L 94 L 94 L Oximetry Medical Decision Making - Medical Decision Making When patient arrived a code stroke was called EKG shows sinus bradycardia at 50 bpm AR interval 293 QRS is 90 QT interval 399 QTC is 397. Patient's EKG shows no ST segment elevation or depression. CT of the head shows no acute abnormality. CTA of the head shows no acute normalities. CT Garcia of the neck shows mild narrowing of the P2 segment of bilateral vertebral arteries. Dr. Garcia reviewed the CT and a CTA and wanted the patient be placed on Brilita aspirin and Lipitor I spoke with Dr. Granados he agreed to admit the patient admitted the patient wrote admitting orders I consult the neurology - Lab Data Result diagrams: 11/18/21 08:07 11/18/21 08:07 Lab Results 11/18/21 11/18/21 11/18/21 Range/Units 08:07 08:07 08:07 WBC 3.4 L (3.8-10.6) k/uL RBC 4.39 (4.30-5.90) m/uL Hgb 13.4 (13.0-17.5) gm/dL Hct 39.6 (39.0-53.0) % MCV 90.1 (80.0-100.0) fL MCH 30.4 (25.0-35.0) pg MCHC 33.8 (31.0-37.0) g/dL RDW 13.9 (11.5-15.5) % Plt Count 245 (150-450) k/uL MPV 6.7 Neutrophils % 63 % Lymphocytes % 21 % Monocytes % 8 % Eosinophils % 5 % Basophils % 1 % Neutrophils # 2.2 (1.3-7.7) k/uL Lymphocytes # 0.7 L (1.0-4.8) k/uL Monocytes # 0.3 (0-1.0) k/uL Eosinophils # 0.2 (0-0.7) k/uL Basophils # 0.0 (0-0.2) k/uL PT 10.1 (9.0-12.0) sec INR 0.9 (<1.2) APTT 22.1 (22.0-30.0) sec Sodium 142 (137-145) mmol/L Potassium 5.3 H (3.5-5.1) mmol/L Chloride 107 (98-107) mmol/L Carbon Dioxide 21 L (22-30) mmol/L Anion Gap 14 mmol/L BUN 34 H (9-20) mg/dL Creatinine 1.38 H (0.66-1.25) mg/dL Est GFR (CKD-EPI)AfAm 59 (>60 ml/min/1.73 sqM) Est GFR (CKD-EPI)NonAf 51 (>60 ml/min/1.73 sqM) Glucose 138 H (74-99) mg/dL Calcium 9.9 (8.4-10.2) mg/dL Total Bilirubin 0.5 (0.2-1.3) mg/dL AST 26 (17-59) U/L ALT 20 (4-49) U/L Alkaline Phosphatase 105 (38-126) U/L Troponin I (0.000-0.034) ng/mL Total Protein 7.1 (6.3-8.2) g/dL Albumin 4.6 (3.5-5.0) g/dL 11/18/21 Range/Units 08:07 WBC (3.8-10.6) k/uL RBC (4.30-5.90) m/uL Hgb (13.0-17.5) gm/dL Hct (39.0-53.0) % MCV (80.0-100.0) fL MCH (25.0-35.0) pg MCHC (31.0-37.0) g/dL RDW (11.5-15.5) % Plt Count (150-450) k/uL MPV Neutrophils % % Lymphocytes % % Monocytes % % Eosinophils % % Basophils % % Neutrophils # (1.3-7.7) k/uL Lymphocytes # (1.0-4.8) k/uL Monocytes # (0-1.0) k/uL Eosinophils # (0-0.7) k/uL Basophils # (0-0.2) k/uL PT (9.0-12.0) sec INR (<1.2) APTT (22.0-30.0) sec Sodium (137-145) mmol/L Potassium (3.5-5.1) mmol/L Chloride (98-107) mmol/L Carbon Dioxide (22-30) mmol/L Anion Gap mmol/L BUN (9-20) mg/dL Creatinine (0.66-1.25) mg/dL Est GFR (CKD-EPI)AfAm (>60 ml/min/1.73 sqM) Est GFR (CKD-EPI)NonAf (>60 ml/min/1.73 sqM) Glucose (74-99) mg/dL Calcium (8.4-10.2) mg/dL Total Bilirubin (0.2-1.3) mg/dL AST (17-59) U/L ALT (4-49) U/L Alkaline Phosphatase (38-126) U/L Troponin I <0.012 (0.000-0.034) ng/mL Total Protein (6.3-8.2) g/dL Albumin (3.5-5.0) g/dL Critical Care Time Critical Care Time: Yes Total Critical Care Time: 35 Disposition Clinical Impression: Cerebrovascular accident (CVA) Disposition: ADMITTED IP TO THIS HOSP Referrals: Micah Benz MD [Primary Care Provider] - 1-2 days Time of Disposition: 09:17
[2021-11-18 08:26] LABS: Basophils % (A) 1 %; Eosinophils # (A) 0.2 k/uL (0-0.7); Eosinophils % (A) 5 %; HCT 39.6 % (39.0-53.0); HGB 13.4 gm/dL (13.0-17.5); Lymphocytes # (A) 0.7 k/uL (1.0-4.8); Lymphocytes % (A) 21 %; MCH 30.4 pg (25.0-35.0); MCHC 33.8 g/dL (31.0-37.0); MCV 90.1 fL (80.0-100.0); Mean Platelet Volume 6.7; Monocytes # (A) 0.3 k/uL (0-1.0); Monocytes % (A) 8 %; Neutrophils # (A) 2.2 k/uL (1.3-7.7); Neutrophils % (A) 63 %; Platelet Count 245 k/uL (150-450); RBC 4.39 m/uL (4.30-5.90); RDW 13.9 % (11.5-15.5); WBC 3.4 k/uL (3.8-10.6)
[2021-11-18 08:39] LABS: Albumin 4.6 g/dL (3.5-5.0); Calcium 9.9 mg/dL (8.4-10.2); Potassium 5.3 mmol/L (3.5-5.1); Total Bilirubin 0.5 mg/dL (0.2-1.3); Total Protein 7.1 g/dL (6.3-8.2)
--- NOTE | 2021-11-18 08:47 | CT ---
EXAM: CT Head Without Intravenous Contrast CLINICAL HISTORY: ITS.REASON CT Reason: Neuro deficit, acute, stroke suspected TECHNIQUE: Axial computed tomography images of the head/brain without intravenous contrast. CTDI is 48.8 mGy and DLP is 1089 mGy-cm. This CT exam was performed using one or more of the following dose reduction techniques: automated exposure control, adjustment of the mA and/or kV according to patient size, and/or use of iterative reconstruction technique. COMPARISON: None FINDINGS: Brain: No acute infarct or hemorrhage. No extra-axial fluid collection. No mass effect or midline shift. Ventricles and sulci: Normal. No ventriculomegaly or intraventricular hemorrhage. Bones: Old fracture deformity of the right lamina papyracea. No bony lesion or acute fracture. Subcutaneous tissues: Normal. Sinuses: Mild mucosal thickening in the maxillary sinuses. Mastoid air cells: Normal. Orbits: Grossly unremarkable. Other: Atherosclerotic changes in the intracranial vasculature. IMPRESSION: No acute intracranial abnormality. If there is persistent concern for acute infarct, consider further evaluation with MRI.
[2021-11-18 08:49] LABS: INR 0.9 (<1.2); Partial Thromboplastin Time 22.1 sec (22.0-30.0); Prothrombin Time 10.1 sec (9.0-12.0)
--- NOTE | 2021-11-18 08:58 | CT ---
EXAM: CT Angiography Head With Intravenous Contrast CLINICAL HISTORY: ITS.REASON CT Reason: Neuro deficit, acute, stroke suspected TECHNIQUE: Axial computed tomographic angiography images of the head with intravenous contrast. This CT exam was performed using one or more of the following dose reduction techniques: automated exposure control, adjustment of the mA and/or kV according to patient size, and/or use of iterative reconstruction technique. MIP reconstructed images were created and reviewed. COMPARISON: Concurrent noncontrast CT head. FINDINGS: Right internal carotid artery: No acute findings. Intracranial segment is patent with no significant stenosis. No aneurysm. Right anterior cerebral artery: Unremarkable. No occlusion or significant stenosis. No aneurysm. Right middle cerebral artery: Unremarkable. No occlusion or significant stenosis. No aneurysm. Right posterior cerebral artery: Unremarkable. No occlusion or significant stenosis. No aneurysm. Right vertebral artery: Unremarkable as visualized. Left internal carotid artery: No acute findings. Intracranial segment is patent with no significant stenosis. No aneurysm. Left anterior cerebral artery: Unremarkable. No occlusion or significant stenosis. No aneurysm. Left middle cerebral artery: Unremarkable. No occlusion or significant stenosis. No aneurysm. Left posterior cerebral artery: Unremarkable. No occlusion or significant stenosis. No aneurysm. Left vertebral artery: Unremarkable as visualized. Basilar artery: Unremarkable. No occlusion or significant stenosis. No aneurysm. IMPRESSION: Unremarkable CTA of the head. EXAM: CT Angiography Neck With Intravenous Contrast CLINICAL HISTORY: ITS.REASON CT Reason: Neuro deficit, acute, stroke suspected TECHNIQUE: Axial computed tomographic angiography images of the neck with intravenous contrast. This CT exam was performed using one or more of the following dose reduction techniques: automated exposure control, adjustment of the mA and/or kV according to patient size, and/or use of iterative reconstruction technique. MIP reconstructed images were created and reviewed. COMPARISON: No relevant prior studies available. FINDINGS: VASCULATURE: Right common carotid artery: No significant stenosis. No dissection or occlusion. Right internal carotid artery: Calcified and noncalcified atherosclerotic plaque within the cervical segment of the right ICA with less than 50% stenosis. No dissection or occlusion. Right external carotid artery: No occlusion. Right vertebral artery: Mild narrowing within the V2 segments of the bilateral vertebral arteries secondary to adjacent cervical spondylitic change. Left common carotid artery: No significant stenosis. No dissection or occlusion. Left internal carotid artery: Extracranial segment is patent with no significant stenosis. No dissection or occlusion. Left external carotid artery: No occlusion. Left vertebral artery: See above. NECK: Bones/joints: Prominent multilevel cervical spondylosis. No acute fracture. No dislocation. Soft tissues: Unremarkable as visualized. No mass. CAROTID STENOSIS REFERENCE USING NASCET CRITERIA: % ICA stenosis = (1 - narrowest ICA diameter/diameter of distal cervical ICA) x 100. Mild - <50% stenosis. Moderate - 50-69% stenosis. Severe - 70-94% stenosis. Near occlusion - 95-99% stenosis. Occluded - 100% stenosis. IMPRESSION: Mild narrowing within the V2 segments of the bilateral vertebral arteries secondary to adjacent cervical spondylitic change. Remainder of the vasculature of the neck is patent without significant stenosis.
[2021-11-18] MEDS ORDERED: ASPIRIN 325 MG TAB PO STA (09:05)
[2021-11-18] MEDS ORDERED: TICAGRELOR 90 MG TAB PO STA (09:05)
[2021-11-18] MEDS ORDERED: ATORVASTATIN 80 MG TAB PO STA (09:07)
--- NOTE | 2021-11-18 10:37 | XR ---
EXAM: XR Chest, 2 Views CLINICAL HISTORY: Reason: altered mental status TECHNIQUE: Frontal and lateral views of the chest. COMPARISON: No relevant prior studies available. FINDINGS: Lungs: Lung volumes are within normal limits. No evidence of airspace consolidation. No pulmonary edema. Pleural space: Unremarkable. No pneumothorax. No pleural effusions. Heart: Unremarkable. No cardiomegaly. Mediastinum: No mediastinal widening or shift. Bones/joints: There is no evidence of acute osseous abnormality. IMPRESSION: No evidence of acute cardiopulmonary abnormality.
[2021-11-18 11:10] LABS: Glucose,Whole Blood 133 mg/dL (70-110)
[2021-11-18] MEDS ORDERED: ONDANSETRON 4 MG TAB PO PRN (12:07)
[2021-11-18] MEDS: ONDANSETRON 4 MG/2 ML VIAL IVP PRN (12:26)
[2021-11-18] MEDS: traMADol 50 MG TAB PO PRN ×2 (17:44→22:10)
--- NOTE | 2021-11-18 18:53 | P.CNNES ---
History of Present Illness Consult date: 11/18/21 Requesting physician: Tiot Meneses Reason for Consult: CVA History of Present Illness: Patient is a 71-year-old right-handed male came to the hospital by ambulance today at 7:55 AM. As per EMS flow sheet when they arrived, found patient is alert and oriented 4 complaining of stroke symptoms. Symptoms started yest erday afternoon and started as right arm and leg pain. This morning patient fell out of the bed because he could not use the right arm or leg. Patient denied any recent trauma, chest pain difficulty breathing or nausea vomiting. Patient was noted to have positive stroke scale with right arm and leg weakness and slurred speech. Patient's vital signs shows blood pressure 187/94, pulse rate 86 respirations 16 saturation 98% blood glucose 127. Blood test shows WBC 3.4 normal hemoglobin and platelets. PT/PTT normal, sodium is normal potassium 5.3, BUN 34, creatinine 1.38. Hepatic panel is normal, troponin negative. Patient's last A1c 8.0 on 08/05/2021. LDL 102 on 08/05/2021. CT head showed no acute intracranial abnormality. I personally reviewed CT head, and agree with the findings. No acute process. CTA of head and neck revealed mild narrowing within the V2 segment of the bilateral vertebral arteries secondary to adjacent cervical spondylotic change. Remainder of the vasculature of the neck is patent without significant stenosis. CTA of the head is read as unremarkable. EKG shows sinus bradycardia. Patient's home medications include aspirin 81 mg, Lopid, Amaryl, oxybutynin, Avapro and metformin. Patient tells me that yesterday at around noon to 1 PM he started having right shoulder pain. He took Tylenol and it helped. He was able to walk around, denied any weakness. He went to bed at 11 PM last night. This morning at 6:30 AM he woke up, and tried to get out of bed, and felt right side was "gone". When he tried to stand up, he fell on the face. He admitted to having slight slurred speech but no visual disturbance. He came to the hospital at 7:55 AM. Patient was not a candidate for TPA, as his last known well was 11 PM the night prior. Patient denies any history of hypertension. He does have diabetes for last 15 years. Denies hyperlipidemia. Denies tobacco use. He does take aspirin 81 mg every day. At home he does not use any device. He lives with his . Denies any previous history of strokes or TIA. Per patient's report, patient complained of feeling generalized weakness leg Jell-O after he woke up from a nap at 12:30 PM to 1 PM yesterday. He was complaining of right shoulder pain. Patient's felt it was related to r ecent flu shot that he received. However afterwards he was still fine, able to cut the grass, pick on onions and some other vegetables from his yard. At dinnertime patient's noticed that he was having problem with using the fork with his right arm. She thought it was just related to right shoulder pain. He went to sleep. He woke up with symptoms as above. Review of Systems Constitutional: Denies chills, Denies fever Eyes: denies blurred vision, denies pain Ears, nose, mouth and throat: Denies headache, Denies sore throat Cardiovascular: Denies chest pain, Denies shortness of breath Respiratory: Denies cough Gastrointestinal: Denies abdominal pain, Denies diarrhea, Denies nausea, Denies vomiting Musculoskeletal: Reports low back pain, Denies myalgias, Denies neck pain Musculoskeletal: bilateral: knee stiffness (History of bilateral knee surgeries, history of bilateral ankle surgeries) Integumentary: Denies pruritus, Denies rash Neurological: Reports as per HPI Psychiatric: Denies anxiety, Denies depression Endocrine: Denies fatigue, Denies weight change Hematologic/Lymphatic: Denies easy bruising Allergic/Immunologic: Denies persistent infections Past Medical History Past Medical History: Diabetes Mellitus, Hyperlipidemia, Osteoarthritis (OA) Additional Past Medical History / Comment(s): remote hs of gout, kidney stone, elevated triglycerides(on rx), basal cell ca, beginnings of cataracts, 10-02-15 ureteral obstruction,idc placed at [facility] 10-02-15, pt states last bm was monday09-27-15. History of Any Multi-Drug Resistant Organisms: None Reported Past Surgical History: Orthopedic Surgery, Tonsillectomy Additional Past Surgical History / Comment(s): orif of left ankle and right ankle. left knee replacment, colonoscopy-clear, rt eye lid sx Past Anesthesia/Blood Transfusion Reactions: No Reported Reaction Past Psychological History: No Psychological Hx Reported Past Alcohol Use History: Occasional Additional Past Alcohol Use History / Comment(s): smoked x 3 years ,quit 1970 Past Drug Use History: None Reported - Past Family History Father Family Medical History: Cancer Additional Family Medical History / Comment(s): prostate cancer Mother Family Medical History: Hypertension Additional Family Medical History / Comment(s): osteoporosis Brother(s) Family Medical History: Cancer Additional Family Medical History / Comment(s): upper jaw Medications and Allergies Home Medications Medication Instructions Recorded Confirmed Type Aspirin 81 mg PO DAILY 04/25/17 11/18/21 History gemfibroziL [Lopid] 600 mg PO AC-BID 04/25/17 11/18/21 History Glimepiride [Amaryl] 2 mg PO DAILY 02/25/21 11/18/21 History Irbesartan [Avapro] 150 mg PO DAILY 02/25/21 11/18/21 History Oxybutynin Chloride 5 mg PO QAM 02/25/21 11/18/21 History metFORMIN HCL 1,000 mg PO PC-BID 11/18/21 11/18/21 History Allergies Allergy/AdvReac Type Severity Reaction Status Date / Time No Known Allergies Allergy Verified 03/01/21 05:57 Physical Examination - Vital Signs Vital Signs: Vital Signs Temp Pulse Resp BP Pulse Ox 11/18/21 09:45 76 16 177/80 93 L 11/18/21 08:41 66 16 170/81 94 L 11/18/21 08:20 78 16 94 L 11/18/21 07:56 98.0 F 76 16 172/82 93 L Intake and Output 11/17/21 11/18/21 11/18/21 22:59 06:59 14:59 Other: Weight 82.554 kg Patient is an elderly male, very pleasant, in no acute distress. Patient is alert awake oriented to time place and person. Speech is mildly dys arthric and language functions are normal. Patient can name and repeat very well. Attention, concentration and fund of knowledge is adequate. On cranial nerve examination, pupils are equal, round and reacting to light, visual oswald are full on confrontation, with no neglect on double simultaneous stimulation. Extraocular muscles are intact with no nystagmus. Patient has right facial droop, central type. His tongue protrudes to the midline. Palatal elevation and sensation normal, hearing and shoulder shrug normal, facial sensation normal. On muscle strength testing, there is right pronator drift (does not hit the bed). Patient also has right leg droop but does not hit the bed. The muscle strength is completely normal in the left arm and left leg. 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 Hip flexion 4+5-, knee extension 5, ankle dorsiflexion 4 with spasticity. Deep tendon reflexes are (right/left) biceps 1/1, with radialis 1/1, knees 0/2, ankles trace/trace plantars are upgoing bilaterally. Sensory to touch is equal with no neglect on double simultaneous stimulation. Cerebellar function showed ataxia on the right for [id number] testing. No dysdiadochokinesia. Patient has ataxia for [id number] testing only on the right side. Tone and bulk of muscles normal. Gait deferred.. On general examination, there is no carotid bruit or murmur, S1-S2 audible. Chest is clear on consultation. Abdomen is soft nontender. No organomegaly, bowel sounds present. Peripheral pulses are present. No edema. Results - Laboratory Findings CBC and BMP: 11/18/21 08:07 11/18/21 08:07 Abnormal Lab Findings: Abnormal Labs 11/18/21 11/18/21 08:07 08:07 WBC 3.4 L Lymphocytes # 0.7 L Potassium 5.3 H Carbon Dioxide 21 L BUN 34 H Creatinine 1.38 H Glucose 138 H Assessment and Plan Assessment: * Acute ischemic stroke, ataxic hemiparesis right side, probably lacunar due to small vessel disease. Localization possibly to left internal capsule. Patient came outside the window for TPA. His current NIH stroke scale 6. * Hypertension * Diabetes * Chronic back pain Plan: * MRI of the brain without contrast, evaluate for acute CVA * Agree with starting dual antiplatelet medication including aspirin 81 mg and Brilinta 90 mg twice a day. Patient has failed aspirin regimen. * 2-D echo with bubble study to rule out PFO * CTA head and neck showed: Mild narrowing within the V2 segment of bilateral vertebral arteries secondary to adjacent cervical spondylitic change. No intracranial stenosis or aneurysm. * Fasting a.m. lipid panel. * Hemoglobin A1c * Permissive hypertension for next 24-48 hours * Close neuro checks as per protocol. * Telemetry monitoring rule out any arrhythmia * DVT prophylaxis: Heparin 5000 units subcu every 8 hours * Neurology will continue ot follow. Thank you for the consult.
[2021-11-18 19:53] LABS: Glucose,Whole Blood 227 mg/dL (70-110)
[2021-11-18] MEDS ORDERED: DEXTROSE 50% SYRINGE 50 ML IVP PRN ×4 (20:17→20:30)
--- NOTE | 2021-11-18 20:29 | P.HPIM ---
History of Present Illness H&P Date: 11/18/21 Chief Complaint: right sided weakness This is a history of physical 71-year-old white male who was essentially admitted to the hospital after yesterday having some shoulder pain. He took some Tylenol before he went to bed and went away he will continue the middle night, and had foot drop and difficulty walking. This morning, he had difficulty with right hemiparesis and fell. He was admitted at Hospital and found to have CVA. Neurology has been consulted MRI is pending we will start appropriate therapy. No previous history of CVA underlying history diabetes which has been fairly well-controlled patient is nonsmoker. Review of Systems Constitutional: Denies chills, Denies fever Ears, nose, mouth and throat: Denies headache, Denies sore throat Cardiovascular: Denies chest pain, Denies shortness of breath Respiratory: Denies cough Gastrointestinal: Denies abdominal pain, Denies diarrhea, Denies nausea, Denies vomiting Musculoskeletal: Reports limitation of motion, Reports low back pain Integumentary: Denies pruritus, Denies rash Neurological: Reports gait dysfunction, Reports motor disturbance, Reports transient paralysis, Reports weakness, Denies aphasia, Denies headaches, Denies loss of vision, Denies memory loss Psychiatric: Denies anxiety, Denies depression Endocrine: Denies fatigue, Denies weight change Past Medical History Past Medical History: Diabetes Mellitus, Hyperlipidemia, Osteoarthritis (OA) Additional Past Medical History / Comment(s): remote hs of gout, kidney stone, elevated triglycerides(on rx), basal cell ca, beginnings of cataracts, 10-02-15 ureteral obstruction,idc placed at [facility] 10-02-15, pt states last bm was monday09-27-15. History of Any Multi-Drug Resistant Organisms: None Reported Past Surgical History: Orthopedic Surgery, Tonsillectomy Additional Past Surgical History / Comment(s): orif of left ankle and right ankle. left knee replacment, colonoscopy-clear, rt eye lid sx Past Anesthesia/Blood Transfusion Reactions: No Reported Reaction Past Psychological History: No Psychological Hx Reported Past Alcohol Use History: Occasional Additional Past Alcohol Use History / Comment(s): smoked x 3 years ,quit 1969 Past Drug Use History: None Reported - Past Family History Father Family Medical History: Cancer Additional Family Medical History / Comment(s): prostate cancer Mother Family Medical History: Hypertension Additional Family Medical History / Comment(s): osteoporosis Brother(s) Family Medical History: Cancer Additional Family Medical History / Comment(s): upper jaw Medications and Allergies Home Medications Medication Instructions Recorded Confirmed Type Aspirin 81 mg PO DAILY 04/25/17 11/18/21 History gemfibroziL [Lopid] 600 mg PO AC-BID 04/25/17 11/18/21 History Glimepiride [Amaryl] 2 mg PO DAILY 02/25/21 11/18/21 History Irbesartan [Avapro] 150 mg PO DAILY 02/25/21 11/18/21 History Oxybutynin Chloride 5 mg PO QAM 02/25/21 11/18/21 History metFORMIN HCL 1,000 mg PO PC-BID 11/18/21 11/18/21 History Allergies Allergy/AdvReac Type Severity Reaction Status Date / Time No Known Allergies Allergy Verified 03/01/21 05:57 Physical Exam Vitals: Vital Signs Temp Pulse Resp BP Pulse Ox 11/18/21 19:40 88 15 166/84 99 11/18/21 17:41 59 L 16 181/82 96 11/18/21 16:00 57 L 16 138/82 99 11/18/21 09:45 76 16 177/80 93 L 11/18/21 08:41 66 16 170/81 94 L 11/18/21 08:20 78 16 94 L 11/18/21 07:56 98.0 F 76 16 172/82 93 L Intake and Output 11/18/21 11/18/21 11/18/21 06:59 14:59 22:59 Other: Weight 82.554 kg - Constitutional General appearance: no acute distress - EENT Eyes: EOMI - Neck Neck: no lymphadenopathy - Respiratory Respiratory: bilateral: CTA - Cardiovascular Rhythm: regular Heart sounds: normal: S1, S2 Abnormal Heart Sounds: no S3 Gallop - Gastrointestinal General gastrointestinal: soft, no tenderness - Integumentary Integumentary: no cellulitis - Neurologic Neurologic: focal deficits - Musculoskeletal Musculoskeletal: no gait normal, right sided weakness - Psychiatric Psychiatric: A&O x's 3, appropriate affect, intact judgment & insight Results CBC & Chem 7: 11/18/21 08:07 11/18/21 08:07 Labs: Abnormal Lab Results - Last 24 Hours (Table) 11/18/21 11/18/21 11/18/21 Range/Units 08:07 08:07 11:08 WBC 3.4 L (3.8-10.6) k/uL Lymphocytes # 0.7 L (1.0-4.8) k/uL Potassium 5.3 H (3.5-5.1) mmol/L Carbon Dioxide 21 L (22-30) mmol/L BUN 34 H (9-20) mg/dL Creatinine 1.38 H (0.66-1.25) mg/dL Glucose 138 H (74-99) mg/dL POC Glucose (mg/dL) 133 H (70-110) mg/dL 11/18/21 Range/Units 19:51 WBC (3.8-10.6) k/uL Lymphocytes # (1.0-4.8) k/uL Potassium (3.5-5.1) mmol/L Carbon Dioxide (22-30) mmol/L BUN (9-20) mg/dL Creatinine (0.66-1.25) mg/dL Glucose (74-99) mg/dL POC Glucose (mg/dL) 227 H (70-110) mg/dL Assessment and Plan (1) Cerebrovascular accident (CVA) Current Visit: Yes Status: Acute Code(s): I63.9 - CEREBRAL INFARCTION, UNSPECIFIED SNOMED Code(s): 768798144 (2) Diabetes Current Visit: No Status: Acute Code(s): E11.9 - TYPE 2 DIABETES MELLITUS WITHOUT COMPLICATIONS SNOMED Code(s): 70057365 (3) S/P revision of total knee Current Visit: No Status: Acute Code(s): Z96.659 - PRESENCE OF UNSPECIFIED ARTIFICIAL KNEE JOINT SNOMED Code(s): 0400121821171 Plan: His weakness is improving. Await neurologic testing. Reconcile home medications. Blood pressure on the higher side. Check CBC and CMP in a.m. Patient is DO NOT RESUSCITATE per request. See orders otherwise. Prognosis is improving Time with Patient: Greater than 30
[2021-11-18] MEDS: TICAGRELOR 90 MG TAB PO SCH (20:35)
[2021-11-18] MEDS: INSULIN ASPART (NovoLOG) 100 UNIT/ML VIAL SQ SCH (20:35)
[2021-11-19] MEDS: ONDANSETRON 4 MG/2 ML VIAL IVP PRN ×2 (02:17→19:56)
[2021-11-19 06:11] LABS: Glucose,Whole Blood 142 mg/dL (70-110)
[2021-11-19] MEDS: INSULIN ASPART (NovoLOG) 100 UNIT/ML VIAL SQ SCH ×4 (06:20→19:54)
[2021-11-19] MEDS: FENOFIBRATE 160 MG TAB PO SCH (06:20)
--- NOTE | 2021-11-19 08:10 | P.PN ---
Subjective Progress Note Date: 11/19/21 Principal diagnosis: Left CVA Right-sided residual still noted but he seems to be stable on his knock out hand strength. He is able to move and dorsiflex his right foot minimally. Nausea which could be related to tramadol Objective - Vital Signs Vital signs: Vital Signs Temp 98.3 F 11/19/21 03:21 Pulse 91 11/19/21 07:31 Resp 16 11/19/21 07:31 BP 176/84 11/19/21 07:31 Pulse Ox 95 11/19/21 07:31 FiO2 Intake & Output 11/18/21 11/19/21 11/19/21 18:59 06:59 18:59 Output Total 300 Balance -300 Weight 82.554 kg 82.554 kg Output: Urine 300 - Constitutional General appearance: Present: average body habitus - EENT Eyes: Absent: abnormal pupil - Neck Neck: Absent: lymphadenopathy - Respiratory Respiratory: bilateral: CTA - Cardiovascular Rhythm: regular Heart sounds: normal: S1, S2 Abnormal Heart Sounds: Absent: S3 Gallop - Gastrointestinal General gastrointestinal: Present: soft. Absent: tenderness - Neurologic Neurologic Comment(s): Right-sided focal deficits - Psychiatric Psychiatric: Present: A&O x's 3, appropriate affect - Labs CBC & Chem 7: 11/18/21 08:07 11/18/21 08:07 Labs: Abnormal Lab Results - Last 24 Hours (Table) 11/18/21 11/18/21 11/18/21 Range/Units 08:00 08:07 08:07 WBC 3.4 L (3.8-10.6) k/uL Lymphocytes # 0.7 L (1.0-4.8) k/uL Potassium 5.3 H (3.5-5.1) mmol/L Carbon Dioxide 21 L (22-30) mmol/L BUN 34 H (9-20) mg/dL Creatinine 1.38 H (0.66-1.25) mg/dL Glucose 138 H (74-99) mg/dL POC Glucose (mg/dL) (70-110) mg/dL Hemoglobin A1c 7.4 H (0.0-6.0) % 11/18/21 11/18/21 11/19/21 Range/Units 11:08 19:51 06:09 WBC (3.8-10.6) k/uL Lymphocytes # (1.0-4.8) k/uL Potassium (3.5-5.1) mmol/L Carbon Dioxide (22-30) mmol/L BUN (9-20) mg/dL Creatinine (0.66-1.25) mg/dL Glucose (74-99) mg/dL POC Glucose (mg/dL) 133 H 227 H 142 H (70-110) mg/dL Hemoglobin A1c (0.0-6.0) % Assessment and Plan (1) Cerebrovascular accident (CVA) Current Visit: Yes Status: Acute Code(s): I63.9 - CEREBRAL INFARCTION, UNSPECIFIED SNOMED Code(s): 239292480 (2) Diabetes Current Visit: No Status: Acute Code(s): E11.9 - TYPE 2 DIABETES MELLITUS WI THOUT COMPLICATIONS SNOMED Code(s): 87465413 (3) S/P revision of total knee Current Visit: No Status: Acute Code(s): Z96.659 - PRESENCE OF UNSPECIFIED ARTIFICIAL KNEE JOINT SNOMED Code(s): 1212142796634 Plan: His weakness is improving. Await neurologic testing. Reconcile home medications. Blood pressure on the higher side. Check CBC and CMP in a.m. Patient is DO NOT RESUSCITATE per request. See orders otherwise. Prognosis is improving Appreciate neurology input. Continue PT
[2021-11-19] MEDS ORDERED: LORazepam 2 MG/ML INJ IV PRN (08:37)
[2021-11-19] MEDS: ASPIRIN 81 MG PO SCH (08:43)
[2021-11-19] MEDS: metFORMIN 500 MG TAB PO SCH ×2 (08:43→18:27)
[2021-11-19] MEDS: LOSARTAN 50 MG TAB PO SCH (08:43)
[2021-11-19] MEDS: TICAGRELOR 90 MG TAB PO SCH ×2 (08:43→19:53)
[2021-11-19] MEDS: OXYBUTYNIN CHLORIDE 5 MG TAB PO SCH (08:43)
[2021-11-19] MEDS ORDERED: ATORVASTATIN 80 MG TAB PO SCH (09:00)
[2021-11-19] MEDS ORDERED: LORazepam 0.5 MG TAB PO PRN (09:52)
[2021-11-19] MEDS: HEPARIN SODIUM,PORCINE/PF 5,000 UNIT/0.5 ML SYRINGE SQ SCH ×2 (10:00→19:54)
--- NOTE | 2021-11-19 11:43 | CA ---
Transthoracic Echo Report Name: Clarence Bergeron Age: 71 Gender: M : 1950 Exam Date: 11/19/2021 08:13 Exam Location: [facility] Ht (in): 65 Wt (lb): 182 Ordering Physician: Marck Flores MD Attending/Referring Phys: Sales Center Manager Claudia Owens RDCS Procedure CPT: Indications: CVA Cardiac Hx: Technical Quality: Good Contrast 1: Total Dose (mL): Contrast 2: Total Dose (mL): MEASUREMENTS (Male / Female) Normal Values 2D ECHO LV Diastolic Diameter PLAX 4.6 cm 4.2 - 5.9 / 3.9 - 5.3 cm LV Systolic Diameter PLAX 2.9 cm IVS Diastolic Thickness 1.4 cm 0.6 - 1.0 / 0.6 - 0.9 cm LVPW Diastolic Thickness 1.4 cm 0.6 - 1.0 / 0.6 - 0.9 cm LV Relative Wall Thickness 0.6 RV Internal Dim ED PLAX 3.4 cm LVOT Diameter 2.4 cm LA Systolic Diameter LX 3.7 cm 3.0 - 4.0 / 2.7 - 3.8 cm LA Volume 42.8 cm??? 18 - 58 / 22 - 52 cm??? M-MODE Aortic Root Diameter MM 4.0 cm MV E Point Septal Separation 0.8 cm AV Cusp Separation MM 2.2 cm DOPPLER AV Peak Velocity 182.1 cm/s AV Peak Gradient 13.3 mmHg AV Mean Velocity 115.9 cm/s AV Mean Gradient 6.0 mmHg AV Velocity Time Integral 38.5 cm AI Peak Velocity 225.0 cm/s AI Peak Gradient 20.2 mmHg AI Pressure Half Time 1079.9 ms MV Area PHT 3.4 cm??? Mitral E Point Velocity 91.7 cm/s Mitral A Point Velocity 108.0 cm/s Mitral E to A Ratio 0.8 MV Deceleration Time 223.8 ms MV E' Velocity 5.9 cm/s Mitral E to MV E' Ratio 15.6 TR Peak Velocity 300.1 cm/s TR Peak Gradient 36.0 mmHg Right Ventricular Systolic Press 41.0 mmHg FINDINGS Left Ventricle Left ventricular ejection fraction is estimated at 55-60 %. Left ventricular cavity size normal. Moderate concentric left ventricular hypertrophy. Right Ventricle Mild right ventricular dilatation. Mild pulmonary hypertension. Right Atrium Normal right atrial size. Negative agitated saline bubble study for right to left shunt. No PFO noted Left Atrium Normal left atrial size. No evidence for an atrial septal defect. Mitral Valve Structurally normal mitral valve. No mitral stenosis, regurgitation or prolapse. Aortic Valve Focal thickening of the aortic valve cusps. Trace to mild aortic regurgitation. Tricuspid Valve Mild tricuspid regurgitation. Pulmonic Valve Trace pulmonic regurgitation. Pericardium Normal pericardium. No pericardial effusion. Aorta Moderate aortic dilatation at the level of the sinuses of valsalva 40 mm. CONCLUSIONS Normal LV size and systolic function with [id number] concentric LVH area mild enlargement of right ventricle mildly elevated PA pressures. Mild mitral and tricuspid insufficiency as well as mild aortic insufficiency. Bubble study was negative for shunt. Previewed by: Dr. Kang Sim MD (Electronically Signed) Final Date: 19 November 2021 11:42
[2021-11-19 11:50] LABS: Glucose,Whole Blood 163 mg/dL (70-110)
[2021-11-19 12:03] LABS: Chol/HDL Ratio 4.79 Ratio; LDL Cholesterol,Calculated 103.2 mg/dL (0.0-131.0)
--- NOTE | 2021-11-19 12:44 | MR ---
EXAMINATION TYPE: MR brain wo con DATE OF EXAM: 11/19/2021 COMPARISON: CT brain 11/18/2021 HISTORY: Acute CVA TECHNIQUE: T1-weighted sagittal, T2, FLAIR, and diffusion axial, and T2 coronal coronal views of the brain are submitted. FINDINGS: There is area of abnormal signal within the left white matter adjacent to the lateral ventricle and l eft basal ganglia compatible with acute to subacute infarct. Report called to patient's nurse 11:36 P M 11/29/2021. Moderate generalized degenerative change. There is mild confluent and multiple focal are as of abnormal signal in the white matter most remote ischemia. There is no mass effect. Craniocervical junction maintained. Sella turcica has a normal appearance. Prominent cisterna magna n oted. No cerebellopontine angle mass. IMPRESSION: 1. There is an area of acute infarct involving the left basal ganglia and deep white matter of the le ft parietal lobe. 2. Degenerative and nonspecific white matter changes most typical of remote ischemia.
--- NOTE | 2021-11-19 14:13 | P.CONS ---
History of Present Illness - Chief Complaint Right hemiparesis - History of Present Illness Admitted to Dr Benz 11/18/21 with acute onset right hemiparesis, speech disturbance.Seen by Neurology, Dr Flores, who concured with diagnosis of CVA. Initial H-CT with ascvd, maxi;llary sinus thickening. A-CT negative but see Dr Flores review. CXR NAD. Brain MRI with acute left Bg lesion and white matter change. OT reports supervision for feeding, min assist for grooming, mod assist for upper dress and max assist for lower dress, bath, toileting and transfers. PT comment mod assist for gait 3 ft HW. Previously functional history from patient, , daughter: 71 yo rh wm, , retired, independent with driving, standing shower. generally does cook, laundry. Has 4W from previous knee surgery, only. No tobacco, ETOH. Review of Systems All systems: negative Constitutional: Denies chills, Denies fever Eyes: denies blurred vision, denies pain Ears, nose, mouth and throat: Denies headache, Denies sore throat Cardiovascular: Denies chest pain, Denies shortness of breath Respiratory: Denies cough Gastrointestinal: Denies abdominal pain, Denies diarrhea, Denies nausea, Denies vomiting Musculoskeletal: Denies myalgias Integumentary: Denies pruritus, Denies rash Neurological: Reports aphasia, Reports numbness, Reports paralysis Psychiatric: Denies anxiety, Denies depression Endocrine: Denies fatigue, Denies weight change Past Medical History Past Medical History: Diabetes Mellitus, Hyperlipidemia, Osteoarthritis (OA) Additional Past Medical History / Comment(s): remote hs of gout, kidney stone, elevated triglycerides(on rx), basal cell ca, beginnings of cataracts, 10-02-15 ureteral obstruction,[facility], pt states last bm was monday09-27-15. History of Any Multi-Drug Resistant Organisms: None Reported Past Surgical History: Orthopedic Surgery, Tonsillectomy Additional Past Surgical History / Comment(s): orif of left ankle and right ankle. left knee replacment, colonoscopy-clear, rt eye lid sx Past Anesthesia/Blood Transfusion Reactions: No Reported Reaction Past Psychological History: No Psychological Hx Reported Past Alcohol Use History: Occasional Additional Past Alcohol Use History / Comment(s): smoked x 3 years ,quit 1969 Past Drug Use History: None Reported - Past Family History Father Family Medical History: Cancer Additional Family Medical History / Comment(s): prostate cancer Mother Family Medical History: Hypertension Additional Family Medical History / Comment(s): osteoporosis Brother(s) Family Medical History: Cancer Additional Family Medical History / Comment(s): upper jaw Medications and Allergies Home Medications Medication Instructions Recorded Confirmed Type Aspirin 81 mg PO DAILY 04/25/17 11/18/21 History gemfibroziL [Lopid] 600 mg PO AC-BID 04/25/17 11/18/21 History Glimepiride [Amaryl] 2 mg PO DAILY 02/25/21 11/18/21 History Irbesartan [Avapro] 150 mg PO DAILY 02/25/21 11/18/21 History Oxybutynin Chloride 5 mg PO QAM 02/25/21 11/18/21 History metFORMIN HCL 1,000 mg PO PC-BID 11/18/21 11/18/21 History Allergies Allergy/AdvReac Type Severity Reaction Status Date / Time No Known Allergies Allergy Verified 03/01/21 05:57 Physical Exam Vitals: Vital Signs Temp Pulse Pulse Resp BP BP Pulse Ox 11/19/21 12:13 78 140/74 96 11/19/21 07:31 91 16 176/84 95 11/19/21 03:21 98.3 F 61 18 151/67 95 11/18/21 23:13 98.1 F 57 L 18 141/73 94 L 11/18/21 19:45 97.8 F 63 18 192/89 95 11/18/21 19:40 88 15 166/84 99 11/18/21 17:41 59 L 16 181/82 96 11/18/21 16:00 57 L 16 138/82 99 Intake and Output 11/18/21 11/19/21 11/19/21 22:59 06:59 14:59 Intake Total 118 Output Total 300 200 Balance -300 -82 Intake: Oral 118 Output: Urine 300 200 Other: Voiding Method Urinal # Voids 1 Weight 82.554 kg - Constitutional General appearance: no acute distress - EENT Eyes: EOMI - Neck Neck: no lymphadenopathy - Respiratory Respiratory: bilateral: other (symmetric, breathing comfortably) - Gastrointestinal General gastrointestinal: no organomegaly, soft, no tenderness - Musculoskeletal Musculoskeletal: right sided weakness Results CBC & Chem 7: 11/18/21 08:07 11/18/21 08:07 Labs: Abnormal Lab Results - Last 24 Hours (Table) 11/18/21 11/18/21 11/19/21 Range/Units 08:00 19:51 06:09 POC Glucose (mg/dL) 227 H 142 H (70-110) mg/dL Hemoglobin A1c 7.4 H (0.0-6.0) % HDL Cholesterol (40.00-60.00) mg/dL 11/19/21 11/19/21 Range/Units 07:19 11:48 POC Glucose (mg/dL) 163 H (70-110) mg/dL Hemoglobin A1c (0.0-6.0) % HDL Cholesterol 33.00 L (40.00-60.00) mg/dL Assessment and Plan (1) Cerebrovascular accident (CVA) Current Visit: Yes Status: Acute Code(s): I63.9 - CEREBRAL INFARCTION, UNSPECIFIED SNOMED Code(s): 871570527 (2) Diabetes Current Visit: No Status: Acute Code(s): E11.9 - TYPE 2 DIABETES MELLITUS WITHOUT COMPLICATIONS SNOMED Code(s): 92478358 (3) Osteoarthritis of right knee Current Visit: No Status: Acute Code(s): M17.11 - UNILATERAL PRIMARY OSTEOARTHRITIS, RIGHT KNEE SNOMED Code(s): 135463562757517 Plan: Comments/plan: discussed anticipate need of IPR. Will review Monday am.
[2021-11-19] MEDS: HYDROcodone/APAP 5-325MG 1 EACH TAB PO PRN (14:54)
[2021-11-19 16:33] LABS: Glucose,Whole Blood 111 mg/dL (70-110)
[2021-11-19 19:52] LABS: Glucose,Whole Blood 162 mg/dL (70-110)
[2021-11-20 05:39] LABS: Glucose,Whole Blood 134 mg/dL (70-110)
[2021-11-20] MEDS: INSULIN ASPART (NovoLOG) 100 UNIT/ML VIAL SQ SCH ×4 (06:00→19:57)
[2021-11-20] MEDS: FENOFIBRATE 160 MG TAB PO SCH (06:17)
[2021-11-20] MEDS: ASPIRIN 81 MG PO SCH (08:30)
[2021-11-20] MEDS: ATORVASTATIN 40 MG TAB PO SCH (08:30)
[2021-11-20] MEDS: TICAGRELOR 90 MG TAB PO SCH ×2 (08:31→19:57)
[2021-11-20] MEDS: LOSARTAN 50 MG TAB PO SCH (08:31)
[2021-11-20] MEDS: HEPARIN SODIUM,PORCINE/PF 5,000 UNIT/0.5 ML SYRINGE SQ SCH ×2 (08:31→19:57)
[2021-11-20] MEDS: OXYBUTYNIN CHLORIDE 5 MG TAB PO SCH (08:31)
[2021-11-20] MEDS: metFORMIN 500 MG TAB PO SCH ×2 (08:31→17:14)
--- NOTE | 2021-11-20 11:07 | P.PN ---
Subjective Progress Note Date: 11/19/21 Patient was seen for a follow-up. Patient is laying comfortably in the bed. Patient's was also present. Patient continues to be very weak on the right side. Denies any numbness. No headache. No new symptoms. Objective - Vital Signs Vital signs: Vital Signs Temp 98.3 F 11/19/21 03:21 Pulse 60 11/19/21 14:56 Resp 16 11/19/21 07:31 BP 137/65 11/19/21 14:56 Pulse Ox 95 11/19/21 14:56 FiO2 Intake & Output 11/18/21 11/19/21 11/19/21 18:59 06:59 18:59 Intake Total 118 Output Total 300 200 Balance -300 -82 Weight 82.554 kg 82.554 kg Intake: Oral 118 Output: Urine 300 200 Other: Voiding Method Urinal # Voids 1 - Exam Patient is an elderly male, very pleasant, in no acute distress. Patient is alert awake oriented to time place and person. Speech is mildly dysarthric and language functions are normal. Patient can name and repeat very well. Attention, concentration and fund of knowledge is adequate. On cranial nerve examination, pupils are equal, round and reacting to light, visual oswald are full on confrontation, with no neglect on double simultaneous stimulation. Extraocular muscles are intact with no nystagmus. Patient has right facial droop, central type. His tongue protrudes to the midline. Palatal elevation and sensation normal, hearing and shoulder shrug normal, facial sensation normal. On muscle strength testing, there is right pronator drift (does not hit the bed), though appears slightly worse. Patient also has right leg droop but does not hit the bed, which appears slightly better than yesterday. The muscle strength is completely normal in the left arm and left leg. Deep tendon reflexes are (right/left) biceps 1/1, with radialis 1/1, knees 0/2, ankles trace/trace plantars are upgoing bilaterally. Sensory to touch is equal with no neglect on double simultaneous stimulation. Cerebellar function showed ataxia on the right for [id number] testing. No dysdiadochokinesia. Patient has ataxia for [id number] testing only on the right side. Tone and bulk of muscles normal. Gait deferred.. On general examination, there is no carotid bruit or murmur, S1-S2 audible. Chest is clear on consultation. Abdomen is soft nontender. No organomegaly, bowel sounds present. Peripheral pulses are present. No edema. - Labs CBC & Chem 7: 11/18/21 08:07 11/18/21 08:07 Labs: Abnormal Lab Results - Last 24 Hours (Table) 11/18/21 11/18/21 11/19/21 Range/Units 08:00 19:51 06:09 POC Glucose (mg/dL) 227 H 142 H (70-110) mg/dL Hemoglobin A1c 7.4 H (0.0-6.0) % HDL Cholesterol (40.00-60.00) mg/dL 11/19/21 11/19/21 Range/Units 07:19 11:48 POC Glucose (mg/dL) 163 H (70-110) mg/dL Hemoglobin A1c (0.0-6.0) % HDL Cholesterol 33.00 L (40.00-60.00) mg/dL Assessment and Plan Assessment: * Acute ischemic stroke, ataxic hemiparesis right side, probably lacunar due to small vessel disease. Localization possibly to left internal capsule. Patient came outside the window for TPA. His current NIH stroke scale 6. * Hypertension * Diabetes * Chronic back pain Plan: * MRI of the brain without contrast revealed an area of acute infarct involving the left basal ganglia and deep white matter of the left parietal lobe. I personally reviewed MRI, agree with the findings. Mainly centered in the left internal capsule. * Agree with starting dual antiplatelet medication including aspirin 81 mg and Brilinta 90 mg twice a day. Patient has failed aspirin regimen. Recommend patient continue aspirin and Brilinta for 30 days, then switch to single agent Plavix 75 mg daily. * 2-D echo with bubble study revealed normal left ventricle size and systolic function with mild to moderate concentric LVH. Mild mitral and tricuspid insufficiency as well as mild aortic insufficiency. Double study was negative for shunt. * CTA head and neck showed: Mild narrowing within the V2 segment of bilateral vertebral arteries secondary to adjacent cervical spondylitic change. No intracranial stenosis or aneurysm. * Fasting a.m. lipid panel cholesterol 158, LDL 103, HDL 33 and triglycerides 109. * Hemoglobin A1c 7.4 * Permissive hypertension for next 24 hours * Close neuro checks as per protocol. * PT OT, speech therapy. * Telemetry monitoring rule out any arrhythmia * DVT prophylaxis: Heparin 5000 units subcu every 12 hours. * Patient seen by physical medicine and rehab, possible transfer to inpatient rehab.
[2021-11-20 12:04] LABS: Glucose,Whole Blood 209 mg/dL (70-110)
[2021-11-20 16:50] LABS: Glucose,Whole Blood 133 mg/dL (70-110)
[2021-11-20] MEDS: HYDROcodone/APAP 5-325MG 1 EACH TAB PO PRN (17:14)
[2021-11-20 19:45] LABS: Glucose,Whole Blood 180 mg/dL (70-110)
[2021-11-20] MEDS: ONDANSETRON 4 MG/2 ML VIAL IVP PRN (23:14)
[2021-11-21 06:20] LABS: Glucose,Whole Blood 162 mg/dL (70-110)
[2021-11-21] MEDS: FENOFIBRATE 160 MG TAB PO SCH (06:25)
[2021-11-21] MEDS: INSULIN ASPART (NovoLOG) 100 UNIT/ML VIAL SQ SCH ×4 (06:26→22:15)
[2021-11-21] MEDS: ASPIRIN 81 MG PO SCH (08:18)
[2021-11-21] MEDS: LOSARTAN 50 MG TAB PO SCH (08:18)
[2021-11-21] MEDS: metFORMIN 500 MG TAB PO SCH ×2 (08:18→17:34)
[2021-11-21] MEDS: TICAGRELOR 90 MG TAB PO SCH ×2 (08:18→22:15)
[2021-11-21] MEDS: OXYBUTYNIN CHLORIDE 5 MG TAB PO SCH (08:18)
[2021-11-21] MEDS: ATORVASTATIN 40 MG TAB PO SCH (08:18)
[2021-11-21] MEDS: HEPARIN SODIUM,PORCINE/PF 5,000 UNIT/0.5 ML SYRINGE SQ SCH ×2 (08:18→22:14)
[2021-11-21] MEDS: ONDANSETRON 4 MG/2 ML VIAL IVP PRN (10:02)
--- NOTE | 2021-11-21 11:04 | P.PN ---
Subjective Progress Note Date: 11/20/21 Patient was seen for a follow-up. Patient is sitting comfortably in the recliner. Patient's was also present. Patient feels his right-sided weakness has gotten worse. This happened after he came back from physical therapy yesterday. He cannot move his right arm and right leg is weaker. Denies any headache. No numbness. Objective - Vital Signs Vital signs: Vital Signs Temp 97.9 F 11/20/21 16:57 Pulse 72 11/20/21 16:57 Resp 16 11/20/21 16:57 BP 173/86 11/20/21 16:57 Pulse Ox 96 11/20/21 16:57 FiO2 Intake & Output 11/19/21 11/20/21 11/20/21 18:59 06:59 18:59 Intake Total 658 Output Total 400 750 500 Balance 258 -750 -500 Intake: Oral 658 Output: Urine 200 750 500 Stool 200 Other: Voiding Method Urinal Urinal Urinal # Voids 1 - Exam Patient is an elderly male, very pleasant, in no acute distress. Patient is alert awake oriented to time place and person. Speech is mildly dysarthric and language functions are normal. Patient can name and repeat very well. Attention, concentration and fund of knowledge is adequate. On cranial nerve examination, pupils are equal, round and reacting to light, visual oswald are full on confrontation, with no neglect on double simultaneous stimulation. Extraocular muscles are intact with no nystagmus. Patient has right facial droop, central type. His tongue protrudes to the midline. Palatal elevation and sensation normal, hearing and shoulder shrug normal, facial sensation normal. On muscle strength testing, there is right pronator drift (now the right arm hits the bed), appears more worse. Patient also has right leg droop but does not hit the bed, which appears slightly better than yesterday. The muscle strength is completely normal in the left arm and left leg. Deep tendon reflexes are (right/left) biceps 1/1, with radialis 1/1, knees 0/2, ankles trace/trace plantars are upgoing bilaterally. Sensory to touch is equal with no neglect on double simultaneous stimulation. Cerebellar function cannot be performed on the right because of weakness. Tone is decreased in the right arm. Bulk of muscles normal. Gait deferred.. On general examination, there is no carotid bruit or murmur, S1-S2 audible. Chest is clear on consultation. Abdomen is soft nontender. No organomegaly, bowel sounds present. Peripheral pulses are present. No edema. - Labs CBC & Chem 7: 11/18/21 08:07 11/18/21 08:07 Labs: Abnormal Lab Results - Last 24 Hours (Table) 11/19/21 11/20/21 11/20/21 Range/Units 19:51 05:37 12:02 POC Glucose (mg/dL) 162 H 134 H 209 H (70-110) mg/dL 11/20/21 Range/Units 16:48 POC Glucose (mg/dL) 133 H (70-110) mg/dL Assessment and Plan Assessment: * Acute ischemic stroke, ataxic hemiparesis right side, probably lacunar due to small vessel disease. Patient's right hemiparesis seems to have gotten worse. Probably a completed stroke. Patient came outside the window for TPA. His current NIH stroke scale 7. * Hypertension * Diabetes * Chronic back pain Plan: * Patient's right hemiparesis seems to have gotten worse. Patient's blood pressure is optimal, not low.. Patient already on statins, dual antiplatelet medication. No other treatment option available at this time. * MRI of the brain without contrast revealed an area of acute infarct involving the left basal ganglia and deep white matter of the left parietal lobe. I personally reviewed MRI, agree with the findings. Mainly centered in the left internal capsule. * Agree with starting dual antiplatelet medication including aspirin 81 mg and Brilinta 90 mg twice a day. Patient has failed aspirin regimen. Recommend patient continue aspirin and Brilinta for 30 days, then switch to single agent Plavix 75 mg daily. * 2-D echo with bubble study revealed normal left ventricle size and systolic function with mild to moderate concentric LVH. Mild mitral and tricuspid insufficiency as well as mild aortic insufficiency. Bubble study was negative for shunt. * CTA head and neck showed: Mild narrowing within the V2 segment of bilateral vertebral arteries secondary to adjacent cervical spondylitic change. No intracranial stenosis or aneurysm. * Fasting a.m. lipid panel cholesterol 158, LDL 103, HDL 33 and triglycerides 109. Patient on Lopid at home. Lipitor 40 mg has been added on in the hospital. He cannot tolerate higher dose of statins in the past. Need to watch for CPK and liver enzymes in the future. * Hemoglobin A1c 7.4 * Close neuro checks as per protocol. * PT OT, speech therapy. * Continue Telemetry monitoring rule out any arrhythmia * DVT prophylaxis: Heparin 5000 units subcu every 12 hours. * Patient seen by physical medicine and rehab, possible transfer to inpatient rehab on Monday.
[2021-11-21 12:10] LABS: Glucose,Whole Blood 138 mg/dL (70-110)
[2021-11-21 16:52] LABS: Glucose,Whole Blood 149 mg/dL (70-110)
[2021-11-21 20:30] LABS: Glucose,Whole Blood 216 mg/dL (70-110)
[2021-11-22 00:43] VITALS: RESP 18
--- NOTE | 2021-11-22 01:02 | P.PN ---
Subjective Progress Note Date: 11/21/21 Patient was seen for a follow-up. Patient is sitting comfortably in the recliner. Patient's was also present. Patient continues to have right- sided weakness has gotten worse. No improvement as compared to yesterday. Patient again mentions that this happened after he came back from physical thera py 11/19/2021. He cannot move his right arm and right leg is weaker. Denies any headache. No numbness. Objective - Vital Signs Vital signs: Vital Signs Temp 98.9 F 11/21/21 20:00 Pulse 84 11/21/21 20:00 Resp 18 11/21/21 20:00 BP 155/82 11/21/21 20:00 Pulse Ox 99 11/21/21 20:00 FiO2 Intake & Output 11/21/21 11/21/21 11/22/21 06:59 18:59 06:59 Output Total 500 400 600 Balance -500 -400 -600 Output: Urine 500 400 400 Stool 200 Other: Voiding Method Urinal Urinal # Voids 1 1 - Exam Patient is an elderly male, very pleasant, in no acute distress. Patient is alert awake oriented to time place and person. Speech is mildly dysarthric and language functions are normal. Patient can name and repeat very well. Attention, concentration and fund of knowledge is adequate. On cranial nerve examination, pupils are equal, round and reacting to light, visual oswald are full on confrontation, with no neglect on double simultaneous stimulation. Extraocular muscles are intact with no nystagmus. Patient has rig ht facial droop, central type, appears slightly better than yesterday. His tongue protrudes to the midline. Palatal elevation and sensation normal, hearing and shoulder shrug slightly weaker on the right as compared to left, facial sensation normal. On muscle strength testing, right arm is completely plegic. No movement. Patient also has no right leg droop. The muscle strength is completely normal in the left arm and left leg. On the right side, patient has no movement of the right arm distally or proximally. His hip flexion is 4+, knee extension 5, ankle dorsiflexion is 2. Deep tendon reflexes are (right/left) biceps 1/1, with radialis 1/1, knees 0/2, ankles trace/trace plantars are upgoing bilaterally. Sensory to touch is equal with no neglect on double simultaneous stimulation. Cerebellar function cannot be performed on the right because of weakness. Tone is decreased in the right arm. Bulk of muscles normal. Gait deferred.. On general examination, there is no carotid bruit or murmur, S1-S2 audible. Chest is clear on consultation. Abdomen is soft nontender. No organomegaly, bowel sounds present. Peripheral pulses are present. No edema. - Labs CBC & Chem 7: 11/18/21 08:07 11/18/21 08:07 Labs: Abnormal Lab Results - Last 24 Hours (Table) 11/21/21 11/21/21 11/21/21 Range/Units 06:19 12:08 16:51 POC Glucose (mg/dL) 162 H 138 H 149 H (70-110) mg/dL 11/21/21 Range/Units 20:29 POC Glucose (mg/dL) 216 H (70-110) mg/dL Assessment and Plan Assessment: * Acute ischemic stroke, ataxic hemiparesis right side, probably lacunar due to small vessel disease. Patient's right hemiparesis seems to have gotten worse. Probably a completed stroke. * Hypertension * Diabetes * Chronic back pain Plan: * Patient's right hemiparesis seems to have gotten worse. Patient's blood pressure is optimal, not low.. Patient already on statins, dual antiplatelet medication. No other treatment option available at this time. * MRI of the brain without contrast revealed an area of acute infarct involving the left basal ganglia and deep white matter of the left parietal lobe. I personally reviewed MRI, agree with the findings. Mainly centered in the left internal capsule. * Agree with starting dual antiplatelet medication including aspirin 81 mg and Brilinta 90 mg twice a day. Patient has failed aspirin regimen. Recommend patient continue aspirin and Brilinta for 30 days, then switch to single agent Plavix 75 mg daily. * 2-D echo with bubble study revealed normal left ventricle size and systolic function with mild to moderate concentric LVH. Mild mitral and tricuspid insufficiency as well as mild aortic insufficiency. Bubble study was negative for shunt. * CTA head and neck showed: Mild narrowing within the V2 segment of bilateral vertebral arteries secondary to adjacent cervical spondylitic change. No intracranial stenosis or aneurysm. * Fasting a.m. lipid panel cholesterol 158, LDL 103, HDL 33 and triglycerides 109. Patient on Lopid at home. Lipitor 40 mg has been added on in the hospital. He cannot tolerate higher dose of statins in the past. Need to watch for CPK and liver enzymes in the future. * Hemoglobin A1c 7.4 * Close neuro checks as per protocol. * PT OT, speech therapy. * Continue Telemetry monitoring rule out any arrhythmia * DVT prophylaxis: Heparin 5000 units subcu every 12 hours. * Patient seen by physical medicine and rehab, possible transfer to inpatient rehab on Monday. * Neurologically clear for transfer to rehab. Dr. Ish Romero will be available for neurology service from the morning.
--- NOTE | 2021-11-22 01:29 | P.PN ---
Subjective Progress Note Date: 11/20/21 Left CVA Right-sided residual still noted but he seems to be stable on his hopper filler strength. He is able to move and dorsiflex his right foot minimally. Nausea which could be related to tramadol 11/20/2021 Patient is currently sitting in a chair comfortably. No complaints of chest pain or shortness breath. Patient states that right-sided weakness worsened after physical therapy yesterday. Patient states that he could not move his right arm now and was lifting overhead previously. No numbness or tingling pain sensation. No headache or dizziness or lightheadedness. No fever no chills. No cough or sputum production. No nausea vomiting or diarrhea. Patient has been afebrile. Objective - Vital Signs Vital signs: Vital Signs Temp 98.8 F 11/20/21 19:38 Pulse 73 11/20/21 19:38 Resp 17 11/20/21 19:38 BP 165/80 11/20/21 19:38 Pulse Ox 97 11/20/21 19:38 FiO2 Intake & Output 11/20/21 11/20/21 11/21/21 06:59 18:59 06:59 Output Total 750 500 Balance -750 -500 Output: Urine 750 500 Other: Voiding Method Urinal Urinal Urinal - Exam - Constitutional General appearance: Present: average body habitus - EENT Eyes: Absent: abnormal pupil - Neck Neck: Absent: lymphadenopathy - Respiratory Respiratory: bilateral: CTA - Cardiovascular Rhythm: regular Heart sounds: normal: S1, S2 Abnormal Heart Sounds: Absent: S3 Gallop - Gastrointestinal General gastrointestinal: Present: soft. Absent: tenderness - Neurologic Neurologic Comment(s): Right-sided focal deficits - Psychiatric Psychiatric: Present: A&O x's 3, appropriate affect - Labs CBC & Chem 7: - Labs CBC & Chem 7: 11/18/21 08:07 11/18/21 08:07 Labs: Abnormal Lab Results - Last 24 Hours (Table) 11/20/21 11/20/21 11/20/21 Range/Units 05:37 12:02 16:48 POC Glucose (mg/dL) 134 H 209 H 133 H (70-110) mg/dL 11/20/21 Range/Units 19:43 POC Glucose (mg/dL) 180 H (70-110) mg/dL Assessment and Plan Assessment: Acute ischemic stroke with right hemiparesis. MRI showed acute infarct involving the left basal ganglia and deep white matter of the left parietal lobe. Hypertension Diabetes type 2 Chronic back pain DVT prophylaxis CODE STATUS is DNR/DNI Plan: Patient will be continued on aspirin, Brilinta due to failure aspirin monoth erapy. Brilinta for 30 days. Then switch to Plavix 70 mg daily. Continue with statins. GI and DVT prophylaxis. Currently on PT OT. Anticipate discharge to rehab. Time with Patient: Greater than 30
--- NOTE | 2021-11-22 01:32 | P.PN ---
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 He is able to move and dorsiflex his right foot minimally. Nausea which could be related to tramadol 11/20/2021 Patient is currently sitting in a chair comfortably. No complaints of chest pain or shortness breath. Patient states that right-sided weakness worsened after physical therapy yesterday. Patient states that he could not move his right arm now and was lifting overhead previously. No numbness or tingling pain sensation. No headache or dizziness or lightheadedness. No fever no chills. No cough or sputum production. No nausea vomiting or diarrhea. Patient has been afebrile. 11/21/2021 Patient is still having right-sided complete paralysis. Probably completed stroke. Otherwise denied any headache or dizziness. No cough or sputum production. No neck stiffness. No nausea vomiting abdominal pain or diarrhea. No difficulty in swallowing. Patient does have mild deviation towards left. Hemodynamically stable. Patient is being continued on Aspirin and Brilinta and statins. Current medications reviewed. Objective - Vital Signs Vital signs: Vital Signs Temp 97.2 F L 11/21/21 15:49 Pulse 90 11/21/21 15:49 Resp 16 11/21/21 15:49 BP 146/80 11/21/21 15:49 Pulse Ox 97 11/21/21 15:49 FiO2 Intake & Output 11/21/21 11/21/21 11/22/21 06:59 18:59 06:59 Output Total 500 400 Balance -500 -400 Output: Urine 500 400 Other: Voiding Method Urinal Urinal # Voids 1 - Exam - Constitutional General appearance: Present: average body habitus - EENT Eyes: Absent: abnormal pupil - Neck Neck: Absent: lymphadenopathy - Respiratory Respiratory: bilateral: CTA - Cardiovascular Rhythm: regular Heart sounds: normal: S1, S2 Abnormal Heart Sounds: Absent: S3 Gallop - Gastrointestinal General gastrointestinal: Present: soft. Absent: tenderness - Neurologic Neurologic Comment(s): Right-sided focal deficits - Psychiatric Psychiatric: Present: A&O x's 3, appropriate affect - Labs CBC & Chem 7: - Labs CBC & Chem 7: 11/18/21 08:07 11/18/21 08:07 Labs: Abnormal Lab Results - Last 24 Hours (Table) 11/21/21 11/21/21 11/21/21 Range/Units 06:19 12:08 16:51 POC Glucose (mg/dL) 162 H 138 H 149 H (70-110) mg/dL 11/21/21 Range/Units 20:29 POC Glucose (mg/dL) 216 H (70-110) mg/dL Assessment and Plan Assessment: Acute ischemic stroke with right hemiparesis. MRI showed acute infarct involv ing the left basal ganglia and deep white matter of the left parietal lobe. Hypertension Diabetes type 2 Chronic back pain DVT prophylaxis CODE STATUS is DNR/DNI Plan: Patient will be continued on aspirin, Brilinta due to failure aspirin monotherapy. Brilinta for 30 days. Then switch to Plavix 70 mg daily. Continue with statins. GI and DVT prophylaxis. Currently on PT OT. Anticipate discharge to rehab. Time with Patient: Greater than 30
[2021-11-22 06:15] LABS: Glucose,Whole Blood 206 mg/dL (70-110)
[2021-11-22] MEDS: INSULIN ASPART (NovoLOG) 100 UNIT/ML VIAL SQ SCH ×2 (07:08→12:40)
[2021-11-22] MEDS: FENOFIBRATE 160 MG TAB PO SCH (07:08)
[2021-11-22 07:26] LABS: Basophils % (A) 1 %; Eosinophils # (A) 0.1 k/uL (0-0.7); Eosinophils % (A) 2 %; HCT 44.7 % (39.0-53.0); HGB 14.7 gm/dL (13.0-17.5); Lymphocytes # (A) 0.7 k/uL (1.0-4.8); Lymphocytes % (A) 14 %; MCH 29.4 pg (25.0-35.0); MCV 89.3 fL (80.0-100.0); Mean Platelet Volume 6.8; Monocytes # (A) 0.3 k/uL (0-1.0); Monocytes % (A) 6 %; Neutrophils # (A) 3.7 k/uL (1.3-7.7); Neutrophils % (A) 76 %; Platelet Count 243 k/uL (150-450); RBC 5.01 m/uL (4.30-5.90); RDW 13.4 % (11.5-15.5); WBC 4.8 k/uL (3.8-10.6)
[2021-11-22 07:37] LABS: Calcium 9.7 mg/dL (8.4-10.2); Potassium 4.8 mmol/L (3.5-5.1)
[2021-11-22 08:35] VITALS: TEMP 97.6
[2021-11-22] MEDS: metFORMIN 500 MG TAB PO SCH (08:42)
[2021-11-22] MEDS: ATORVASTATIN 40 MG TAB PO SCH (08:42)
[2021-11-22] MEDS: LOSARTAN 50 MG TAB PO SCH (08:42)
[2021-11-22] MEDS: HEPARIN SODIUM,PORCINE/PF 5,000 UNIT/0.5 ML SYRINGE SQ SCH (08:43)
[2021-11-22] MEDS: TICAGRELOR 90 MG TAB PO SCH (08:43)
[2021-11-22] MEDS: OXYBUTYNIN CHLORIDE 5 MG TAB PO SCH (08:43)
--- NOTE | 2021-11-22 08:46 | P.DS ---
Providers Date of admission: 11/18/21 09:17 Attending physician: Micah Benz Consults: 11/18/21 09:17 Consult Physician Routine Consulting Provider: Marck Flores Consult Reason/Comments: CVA Do you want consulting provider notified?: Yes 11/19/21 12:20 Consult Physician Routine Consulting Provider: Henry Hernandez Consult Reason/Comments: Eval for IPR Do you want consulting provider notified?: Yes Primary care physician: Micah Benz - Discharge Diagnosis(es) (1) Cerebrovascular accident (CVA) Current Visit: Yes Status: Acute (2) Diabetes Current Visit: No Status: Acute (3) S/P revision of total knee Current Visit: No Status: Acute Hospital Course: This discharge summary 70-year-old white male who complained of right hemiplegia. The patient ended up having diagnosis of basal ganglia CVA on the left with parietal CVA. The patient was placed on appropriate protocols nausea was consulted and he is placed on appropriate anticoagulation. The patient was transferred to inpatient rehab when bed available and I will continue see the patient at that location. The patient is voiding without difficulties tolerating diet Patient Condition at Discharge: Stable Plan - Discharge Summary Discharge Rx Participant: No New Discharge Prescriptions: New Ticagrelor [Brilinta] 90 mg PO BID #60 tab Aspirin 81 mg PO DAILY #30 tab Atorvastatin [Lipitor] 40 mg PO DAILY #30 tab Ondansetron [Zofran] 4 mg PO Q8HR PRN #30 tab PRN Reason: Nausea And Vomiting Continue Aspirin 81 mg PO DAILY gemfibroziL [Lopid] 600 mg PO AC-BID Glimepiride [Amaryl] 2 mg PO DAILY Oxybutynin Chloride 5 mg PO QAM Irbesartan [Avapro] 150 mg PO DAILY metFORMIN HCL 1,000 mg PO PC-BID Discharge Medication List Aspirin 81 mg PO DAILY 04/25/17 [History] gemfibroziL [Lopid] 600 mg PO AC-BID 04/25/17 [History] Glimepiride [Amaryl] 2 mg PO DAILY 02/25/21 [History] Irbesartan [Avapro] 150 mg PO DAILY 02/25/21 [History] Oxybutynin Chloride 5 mg PO QAM 02/25/21 [History] metFORMIN HCL 1,000 mg PO PC-BID 11/18/21 [History] Aspirin 81 mg PO DAILY #30 tab 11/22/21 [Rx] Atorvastatin [Lipitor] 40 mg PO DAILY #30 tab 11/22/21 [Rx] Ondansetron [Zofran] 4 mg PO Q8HR PRN #30 tab 11/22/21 [Rx] Ticagrelor [Brilinta] 90 mg PO BID #60 tab 11/22/21 [Rx] Follow up Appointment(s)/Referral(s): Micah Benz MD [Primary Care Provider] - 3 Days Discharge Disposition: TRANSFER TO SNF/ECF
[2021-11-22] MEDS: ASPIRIN 81 MG PO SCH (09:01)
[2021-11-22 11:57] LABS: Glucose,Whole Blood 168 mg/dL (70-110)
[2021-11-22 13:32] VITALS: BP 137/68; PULSE 72
== END 2021-11-22 17:14 | DRG 65 ==
LOC: EC 07:55 → 3SCARD 09:17
PROVIDERS: ADMIT Family Medicine; ATTEND Family Medicine
DX: I63.81 Other cerebral infarction due to occlusion or stenosis of small artery (principal); G81.91 Hemiplegia, unspecified affecting right dominant side; Z20.822 Contact with and (suspected) exposure to COVID-19; E11.9 Type 2 diabetes mellitus without complications; E78.1 Pure hyperglyceridemia; R00.1 Bradycardia, unspecified; M47.892 Other spondylosis, cervical region; I25.10 Atherosclerotic heart disease of native coronary artery without angina pectoris; E78.5 Hyperlipidemia, unspecified; G89.29 Other chronic pain; I10 Essential (primary) hypertension; H26.9 Unspecified cataract; R29.810 Facial weakness; I27.20 Pulmonary hypertension, unspecified; R47.1 Dysarthria and anarthria; R11.0 Nausea; I65.03 Occlusion and stenosis of bilateral vertebral arteries; M17.11 Unilateral primary osteoarthritis, right knee; M10.9 Gout, unspecified; M21.379 Foot drop, unspecified foot; M54.9 Dorsalgia, unspecified; R29.706 NIHSS score 6; R29.707 NIHSS score 7; W06.XXXA Fall from bed, initial encounter; Z66 Do not resuscitate; Z79.82 Long term (current) use of aspirin; Z79.84 Long term (current) use of oral hypoglycemic drugs; Z79.899 Other long term (current) drug therapy; Z80.42 Family history of malignant neoplasm of prostate; Z82.49 Family history of ischemic heart disease and other diseases of the circulatory system; Z82.62 Family history of osteoporosis; Z85.828 Personal history of other malignant neoplasm of skin; Z87.442 Personal history of urinary calculi
CPT/HCPCS: 36415; 70450; 70496; 70498; 70551; 71046; 80048; 80053; 80061; 83036; 84484; 85025; 85610; 85730; 87635; 93005; 93306; 96361; 96374; 99291

== ENCOUNTER → 2022-03-03 | Outpatient (CLI) | payer MEDICARE ==
--- NOTE | 2022-03-03 17:50 | MR ---
EXAMINATION TYPE: MR brain wo con DATE OF EXAM: 03/03/2022 COMPARISON: 11/19/2021 HISTORY: 71-year-old male Post CVA follow up, right sided weakness TECHNIQUE: Multiplanar, multisequence images of the brain and brainstem were acquired without IV con trast. Diffusion weighted imaging is performed. FINDINGS: Interval progression of the patient's previous left herrmann radiata infarct to encephalomalacia with s urrounding gliosis measuring 2.0 x 1.0 cm. There is a peripheral rim of increased signal on DWI which corresponds to T2 shine through rather than true restricted diffusion. No acute ischemic changes are evident. No mass, mass effect, midline shift, herniation, or extra-axial fluid collection is seen. T2/FLAIR weighted sequences show mild scattered right white matter foci suggesting chronic small vess el ischemic disease. In addition, there has been the development of increased signal extending down t he posterior limb of the internal capsule, left side of the brainstem and left ventral cord. Major intracranial flow voids appear intact. Dominant left vertebral artery. Midline structures demonstrate normal morphology. The craniocervical junction is normal. There is mild mucosal thickening throughout the ethmoid air cells. Globes are intact. Mastoid air nemo ls well pneumatized. IMPRESSION: The acute infarct involving the left-sided deep white matter seen on 11/19/2021 has evolved to chronic encephalomalacia with surrounding gliosis. There is associated wallerian degeneration which has also developed on the left. Similar background of mild burden of chronic small vessel ischemic disease. No acute intracranial abnormality seen. Mild chronic ethmoid sinus disease.
== END | disposition home or self-care (01) ==
LOC: RADMRIMAIN 11:30
PROVIDERS: ATTEND Psychiatry & Neurology Neurology
DX: I63.9 Cerebral infarction, unspecified (principal); G93.89 Other specified disorders of brain; I67.82 Cerebral ischemia; J32.2 Chronic ethmoidal sinusitis; Z86.73 Personal history of transient ischemic attack (TIA), and cerebral infarction without residual deficits
CPT/HCPCS: 70551

== ENCOUNTER → 2022-03-18 | Outpatient (CLI) | payer MEDICARE ==
[2022-03-18 14:54] LABS: Basophils # (A) 0.01 X 10*3/uL (0.00-0.10); Basophils % (A) 0.3 %; Eosinophils # (A) 0.04 X 10*3/uL (0.04-0.35); Eosinophils % (A) 1.3 %; HCT 38.1 % (39.6-50.0); HGB 12.3 g/dL (13.0-17.0); Immature Grans, Automated 0.3 %; Lymphocytes # (A) 0.55 X 10*3/uL (0.90-5.00); Lymphocytes % (A) 18.1 %; MCH 29.3 pg (27.0-32.0); MCHC 32.3 g/dL (32.0-37.0); MCV 90.7 fL (80.0-97.0); Mean Platelet Volume 8.8 fL (9.5-12.2); Monocytes # (A) 0.23 X 10*3/uL (0.20-1.00); Monocytes % (A) 7.6 %; NRBC Per 100 WBC 0 /100 WBCS (0.0-0.0); Neutrophils % (A) 72.4 %; Platelet Count 184 X 10*3/uL (140-440); RDW 12.8 % (11.5-14.5); WBC 3.04 X 10*3/uL (4.50-10.00)
[2022-03-18 17:45] LABS: ALT 16 U/L (10-49); AST 20 U/L (14-35); African American GFR (CKD) 68.7 (60.0-200.0); Albumin 4.4 g/dL (3.8-4.9); Albumin/Globulin Ratio 1.75 (1.60-3.17); Alkaline Phosphatase 84 U/L (41-126); BUN/Creat Ratio 22.46 Ratio (12.00-20.00); Blood Urea Nitrogen 27.4 mg/dL (9.0-27.0); Calcium 10.3 mg/dL (8.7-10.3); Chloride 104 mmol/L (96-109); Chol/HDL Ratio 2.65 Ratio; Globulin 2.5 g/dL (1.6-3.3); Glucose 177 mg/dL (70-110); LDL Cholesterol,Calculated 44.5 mg/dL (0.0-131.0); Non-African American GFR(CKD) 59.3 (60.0-200.0); Potassium 6.3 mmol/L (3.5-5.5); Sodium 138 mmol/L (135-145); VLDL Calculation 17.44 mg/dL (5.00-40.00)
== END | disposition home or self-care (01) ==
LOC: LABWHC1 09:35
PROVIDERS: ATTEND Urology
DX: C61 Malignant neoplasm of prostate (principal); E11.9 Type 2 diabetes mellitus without complications; E78.5 Hyperlipidemia, unspecified; M17.12 Unilateral primary osteoarthritis, left knee
CPT/HCPCS: 36415; 80053; 80061; 83036; 84153; 84439; 84443; 85025

== ENCOUNTER → 2022-03-21 | Outpatient (CLI) | payer MEDICARE ==
[2022-03-21 14:04] LABS: ALT 21 U/L (4-49); AST 20 U/L (17-59); African American GFR (CKD) 59 (>60 ml/min/1.73 sqM); Albumin 3.9 g/dL (3.5-5.0); Albumin/Globulin Ratio 1.5; Alkaline Phosphatase 88 U/L (38-126); Anion Gap 8 mmol/L; Blood Urea Nitrogen 43 mg/dL (9-20); Calcium 9.5 mg/dL (8.4-10.2); Carbon Dioxide 23 mmol/L (22-30); Chloride 109 mmol/L (98-107); Globulin 2.6 g/dL; Glucose 156 mg/dL (74-99); Non-African American GFR(CKD) 51 (>60 ml/min/1.73 sqM); Potassium 5.8 mmol/L (3.5-5.1); Sodium 140 mmol/L (137-145); Total Bilirubin 0.4 mg/dL (0.2-1.3); Total Protein 6.5 g/dL (6.3-8.2)
== END | disposition home or self-care (01) ==
LOC: LABWHC1 13:17
PROVIDERS: ATTEND Family Medicine
DX: R79.9 Abnormal finding of blood chemistry, unspecified (principal)
CPT/HCPCS: 36415; 80053

== ENCOUNTER → 2022-03-28 | Outpatient (CLI) | payer MEDICARE ==
[2022-03-28 14:59] LABS: African American GFR (CKD) 72.3 (60.0-200.0); Anion Gap 11.1 mmol/L (10.00-18.00); BUN/Creat Ratio 16.92 Ratio (12.00-20.00); Blood Urea Nitrogen 19.8 mg/dL (9.0-27.0); Calcium 9.5 mg/dL (8.7-10.3); Non-African American GFR(CKD) 62.4 (60.0-200.0); Potassium 4.8 mmol/L (3.5-5.5)
== END | disposition home or self-care (01) ==
LOC: LABWHC1 09:34
PROVIDERS: ATTEND Family Medicine
DX: E87.5 Hyperkalemia (principal)
CPT/HCPCS: 36415; 80048

== ENCOUNTER → 2022-06-15 | Outpatient (CLI) | payer MEDICARE ==
[2022-06-15 16:29] LABS: HCT 38.8 % (39.6-50.0); HGB 12.5 g/dL (13.0-17.0); MCH 29.3 pg (27.0-32.0); MCHC 32.2 g/dL (32.0-37.0); MCV 91.1 fL (80.0-97.0); NRBC Per 100 WBC 0 /100 WBCS (0.0-0.0); Platelet Count 207 X 10*3/uL (140-440); RBC 4.26 X 10*6/uL (4.40-5.60); WBC 4.13 X 10*3/uL (4.50-10.00)
[2022-06-15 16:44] LABS: ALT 20 U/L (10-49); AST 21 U/L (14-35); African American GFR (CKD) 65.5 (60.0-200.0); Albumin 4.5 g/dL (3.8-4.9); Albumin/Globulin Ratio 1.88 (1.60-3.17); Alkaline Phosphatase 84 U/L (41-126); Blood Urea Nitrogen 34.8 mg/dL (9.0-27.0); Calcium 10.1 mg/dL (8.7-10.3); Carbon Dioxide 22.4 mmol/L (20.0-27.5); Chloride 104 mmol/L (96-109); Chol/HDL Ratio 3.16 Ratio; Globulin 2.4 g/dL (1.6-3.3); Glucose 89 mg/dL (70-110); LDL Cholesterol,Calculated 51.3 mg/dL (0.0-131.0); Non-African American GFR(CKD) 56.5 (60.0-200.0); Potassium 5.8 mmol/L (3.5-5.5); Sodium 140 mmol/L (135-145); Total Protein 6.9 g/dL (6.2-8.2)
== END | disposition home or self-care (01) ==
LOC: LABWHC1 08:57
PROVIDERS: ATTEND Family Medicine
DX: E11.9 Type 2 diabetes mellitus without complications (principal); E87.5 Hyperkalemia; Z86.73 Personal history of transient ischemic attack (TIA), and cerebral infarction without residual deficits; E78.5 Hyperlipidemia, unspecified
CPT/HCPCS: 36415; 80053; 80061; 83036; 85027

== ENCOUNTER 2022-08-18 11:39 | Emergency (ER) | payer MEDICARE ==
[2022-08-18 11:49] VITALS: RESP 20
[2022-08-18] MEDS ORDERED: TOPICAL SKIN ADHESIVE 1 EACH AMP TOPICAL STA (12:00)
[2022-08-18] MEDS ORDERED: ACETAMINOPHEN TAB 500 MG TAB PO STA (12:01)
[2022-08-18] MEDS ORDERED: DIPH,PERTUS(ACELL)TETVAC-LF 0.5 ML VIAL IM ONE (12:01)
--- NOTE | 2022-08-18 12:31 | CT ---
EXAMINATION TYPE: CT brain cspine wo con CT DLP: 1515.9 mGycm, Automated exposure control for dose reduction was used. DATE OF EXAM: 08/18/2022 12:22 PM COMPARISON: Prior CT brain 11/18/2021. CLINICAL INDICATION:Male, 71 years old with history of fall on thinners; Fall, right side frontal lob e laceration TECHNIQUE: Brain: Multiple axial CT images of the brain were obtained without IV contrast. Cspine: Axial CT images from the skull base to the inferior aspect of T2 we obtained without intraven ous contrast. Coronal and sagittal reformatted images were also reviewed. FINDINGS: Brain: Extra-axial spaces: No abnormal extra-axial fluid collections. Ventricular system: Within normal limits Cerebral parenchyma: Cerebral atrophy. No acute intraparenchymal hemorrhage or mass effect. Remote l eft herrmann radiata infarct with encephalomalacia. The robert-white junction is well differentiated. Sca ttered hypoattenuating areas are seen within the white matter. Cerebellum: Unremarkable. Mass effect: No evidence of midline shift. Intracranial vasculature: Atherosclerotic calcifications of the intracranial vessels. Soft tissues: Small right lateral scalp hematoma. Calvarium/osseous structures: No depressed skull fracture. Paranasal sinuses and mastoid air cells: Clear. Visualized orbits: Orbital contents are intact. Cervical spine: Fracture: None. Osseous structures: Multilevel degenerative disc disease changes with endplate spurring and disc oste ophyte complex's. Multilevel facet arthropathy. Vertebral alignment: Degenerative grade 1 anterolisthesis of C2 on C3. Straightening of the cervical spine which may be due to patient position versus muscle spasm. Spinal canal/Neural Foramina: Disc osteophyte complexes at C4-C5, C5-C6, and C6-C7 with at least mild spinal canal stenosis. Facet joint uncovertebral joint arthropathy scattered throughout the cervical spine with varying degrees of neural foraminal stenosis. Neck soft tissues: Prevertebral soft tissues are within normal limits. Other: The airway is patent. The lung apices are clear. Right carotid bulb atherosclerotic calcificat ion. IMPRESSION: 1. No acute intracranial process. 2. Nonspecific white matter changes, likely secondary to chronic small vessel ischemic disease. 3. Small right lateral scalp hematoma. 4. No evidence of cervical spine fracture. 5. Moderate multilevel degenerative disc disease.
--- NOTE | 2022-08-18 12:33 | XR ---
EXAMINATION TYPE: XR humerus RT DATE OF EXAM: 08/18/2022 12:27 PM INDICATION: Patient age:Male; 71 years old; Reason for study: fall; [facility]. COMPARISON: Chest radiograph 11/18/2021 TECHNIQUE: The right humerus was examined in AP and lateral projections. FINDINGS: No acute fracture or dislocation. Moderate to severe degenerative changes of the right shou lder and AC joint with joint space narrowing, subchondral cystic change, and marginal osteophytosis. The remaining portions of the visualized chest are unremarkable. IMPRESSION: 1. No acute osseous pathology. 2. Moderate to severe degenerative changes of the right shoulder and AC joint.
--- NOTE | 2022-08-18 12:58 | ED ---
Fall HPI - General Chief Complaint: Fall Stated Complaint: fall - head injury Time Seen by Provider: 08/18/22 11:53 Source: patient, family Mode of arrival: wheelchair - History of Present Illness Initial Comments: Patient is a 71-year-old male who presents to the emergency department for follow-up. Patient went to sit on a stool which in the bathroom hitting his head on the sink and was floor. Patient did not lose consciousness. He is on Plavix. He has a small laceration to his right scalp. He denies headache, neck pain. He does have some mild pain to his right upper arm. Denies blurry vision, though vision, nausea, vomiting. Tetanus is not up-to-date - Related Data Home Medications Medication Instructions Recorded Confirmed Aspirin 81 mg PO DAILY 04/25/17 11/18/21 gemfibroziL [Lopid] 600 mg PO AC-BID 04/25/17 11/18/21 Glimepiride [Amaryl] 2 mg PO DAILY 02/25/21 11/18/21 Irbesartan [Avapro] 150 mg PO DAILY 02/25/21 11/18/21 Oxybutynin Chloride 5 mg PO QAM 02/25/21 11/18/21 metFORMIN HCL 1,000 mg PO PC-BID 11/18/21 11/18/21 Previous Rx's Medication Instructions Recorded Aspirin 81 mg PO DAILY #30 tab 11/22/21 Atorvastatin [Lipitor] 40 mg PO DAILY #30 tab 11/22/21 Ondansetron [Zofran] 4 mg PO Q8HR PRN #30 tab 11/22/21 Ticagrelor [Brilinta] 90 mg PO BID #60 tab 11/22/21 Allergies Allergy/AdvReac Type Severity Reaction Status Date / Time No Known Allergies Allergy Verified 08/18/22 11:49 Review of Systems ROS Statement: Those systems with pertinent positive or pertinent negative responses have been documented in the HPI. ROS Other: All systems not noted in ROS Statement are negative. Past Medical History Past Medical History: CVA/TIA, Diabetes Mellitus, Hyperlipidemia, Osteoarthritis (OA) Additional Past Medical History / Comment(s): remote hs of gout, kidney stone, elevated triglycerides(on rx), basal cell ca, beginnings of cataracts, 10-02-15 ureteral obstruction,idc placed at [facility] 10-02-15, pt states last bm was monday09-27-15. History of Any Multi-Drug Resistant Organisms: None Reported Past Surgical History: Orthopedic Surgery, Tonsillectomy Additional Past Surgical History / Comment(s): orif of left ankle and right ankle. left knee replacment, colonoscopy-clear, rt eye lid sx Past Anesthesia/Blood Transfusion Reactions: No Reported Reaction Past Psychological History: No Psychological Hx Reported Smoking Status: Never smoker Past Alcohol Use History: Occasional Past Drug Use History: None Reported - Past Family History Father Family Medical History: Cancer Additional Family Medical History / Comment(s): prostate cancer Mother Family Medical History: Hypertension Additional Family Medical History / Comment(s): osteoporosis Brother(s) Family Medical History: Cancer Additional Family Medical History / Comment(s): upper jaw General Exam Limitations: no limitations General appearance: alert Head exam: Present: normocephalic, other (No hematoma). Absent: normal inspection (1 cm laceration to the right temporal scalp ) Eye exam: Present: normal appearance, PERRL, EOMI. Absent: scleral icterus, conjunctival injection, periorbital swelling Neck exam: Present: normal inspection. Absent: tenderness, meningismus, lymphadenopathy Respiratory exam: Present: normal lung sounds bilaterally. Absent: respiratory distress, wheezes, rales, rhonchi, stridor Cardiovascular Exam: Present: regular rate, normal rhythm, normal heart sounds. Absent: systolic murmur, diastolic murmur, rubs, gallop, clicks Right Shoulder Exam: Present: normal inspection. Absent: full ROM (Limited due to history of stroke), tenderness, swelling Upper Arm exam: Present: normal inspection. Absent: full ROM (Limited due to stroke history), tenderness, swelling Elbow exam: Absent: normal inspection Neuro motor exam: Present: wrist extension intact, thumb opposition intact, bernardino mb IP flexion intact, thumb adduction intact, fingers 2-5 abduction intact Vascular: Present: normal capillary refill Neurological exam: Present: alert, oriented X3, CN II-XII intact Psychiatric exam: Present: normal affect, normal mood Skin exam: Present: warm, dry, intact, normal color. Absent: rash Course Vital Signs 08/18/22 08/18/22 11:43 13:08 Temperature 97.9 F 98.0 F Pulse Rate 88 84 Respiratory 20 20 Rate Blood Pressure 164/77 160/73 O2 Sat by Pulse 99 99 Oximetry Medical Decision Making - Medical Decision Making Was pt. sent in by a medical professional or institution (, NIRMAL, PARTS CASTING MACHINE OPERATOR, urgent care, hospital, or snf...) When possible be specific @ -No Did you speak to anyone other than the patient for history (EMS, parent, family, police, friend...)? What history was obtained from this source @ -No Did you review nursing and triage notes (agree or disagree)? Why? @ -I reviewed and agree with nursing and triage notes Were old charts reviewed (outside hosp., previous admission, EMS record, old EKG, old radiological studies, urgent care reports/EKG's, snf records)? Report findings @ -No old charts were reviewed Differential Diagnosis (chest pain, altered mental status, abdominal pain women, abdominal pain men, vaginal bleeding, weakness, fever, dyspnea, syncope, headache, dizziness, GI bleed, back pain, seizure, CVA, palpatations, mental health)? @ -Differential Headache: Migraine, tension, cluster, carbon monoxide, central venous thrombosis, pension karma temporal arteritis, acute closure glaucoma, intercranial hemorrhage, mastoiditis, sinusitis, head injury, this is not meant to be an all-inclusive list. EKG interpreted by me (3pts min.). @ -As above X-rays interpreted by me (1pt min.). @ -None done CT interpreted by me (1pt min.). @ -Negative for acute intracranial process and cervical fracture U/S interpreted by me (1pt. min.). @ -None done What testing was considered but not performed or refused? (CT, X-rays, U/S, labs)? Why? @ -None What meds were considered but not given or refused? Why? @ -None Did you discuss the management of the patient with other professionals (professionals i.e. , NIRMAL, PARTS CASTING MACHINE OPERATOR, lab, RT, psych nurse, social insurance administrator, console attendant, teacher, tourist information officer, piano case and bench assembler)? Give summary @ -No Was smoking cessation discussed for >3mins.? @ -No Was critical care preformed (if so, how long)? @ -No Were there social determinants of health that impacted care today? How? (Homelessness, low income, unemployed, alcoholism, drug addiction, transportation, low edu. Level, literacy, decrease access to med. care, custodial, rehab)? @ -No Was there de-escalation of care discussed even if they declined (Discuss DNR or withdrawal of care, Hospice)? DNR status @ -No What co-morbidities impacted this encounter? (DM, HTN, Smoking, COPD, CAD, Cancer, CVA, ARF, Chemo, Hep., AIDS, mental health diagnosis, sleep apnea, morbid obesity)? @ -[None] Was patient admitted / discharged? Hospital course, mention meds given and route, prescriptions, significant lab abnormalities, going to OR and other pertinent info. @ -Discharged. Due to fall on thinners CT of the brain and C-spine was obtained interpreted by myself/radiology which is negative for acute process. Patient has small laceration over the temporal scalp which was well approximated with exofin. Tetanus updated. X-ray of the right humerus shows no evidence of fracture dislocation. Patient given Tylenol with improvement of pain he is in stable medical condition for discharge Undiagnosed new problem with uncertain prognosis? @ -[No] Drug Therapy requiring intensive monitoring for toxicity (Heparin, Nitro, Insulin, Cardizem)? @ -[No] Were any procedures done? @ yes, lac repair Diagnosis/symptom? @ -fall, laceration, right arm injury Acute, or Chronic, or Acute on Chronic? @ -acute Uncomplicated (without systemic symptoms) or Complicated (systemic symptoms)? @ -uncomplicated Side effects of treatment? @ -[No] Exacerbation, Progression, or Severe Exacerbation? @ -[No] Poses a threat to life or bodily function? How? (Chest pain, USA, PA, pneumonia, PE, COPD, DKA, ARF, appy, cholecystitis, CVA, Diverticulitis, Homicidal, Suicidal, threat to staff... and all critical care pts) @ -[No] Dr. Hidalgo is my attending Disposition Clinical Impression: Fall, Laceration, Injury of right upper arm Disposition: HOME SELF-CARE Condition: Good Instructions (If sedation given, give patient instructions): Fall Prevention for Older Adults (ED) Additional Instructions: Take Tylenol for pain. Avoid anti-inflammatories for the next 48 hours due to head injury. Follow-up with primary care provider in one to 2 days. Return to the emergency department if you experience new, concerning, or worsening symptoms. Is patient prescribed a controlled substance at d/c from ED?: No Referrals: Micah Benz MD [Primary Care Provider] - 1-2 days
[2022-08-18 14:03] VITALS: BP 160/73; PULSE 84; TEMP 98
== END 2022-08-18 13:10 | disposition home or self-care (01) ==
LOC: EC 11:39
DX: S01.01XA Laceration without foreign body of scalp, initial encounter (principal); E11.9 Type 2 diabetes mellitus without complications; E78.5 Hyperlipidemia, unspecified; M19.90 Unspecified osteoarthritis, unspecified site; Z86.73 Personal history of transient ischemic attack (TIA), and cerebral infarction without residual deficits; Z79.82 Long term (current) use of aspirin; Z79.84 Long term (current) use of oral hypoglycemic drugs; Z79.899 Other long term (current) drug therapy; Z23 Encounter for immunization; W01.198A Fall on same level from slipping, tripping and stumbling with subsequent striking against other object, initial encounter; Y92.002 Bathroom of unspecified non-institutional (private) residence as the place of occurrence of the external cause
CPT/HCPCS: 12001; 70450; 72125; 90471; 90715; 99284

== ENCOUNTER → 2022-10-19 | Outpatient (CLI) | payer MEDICARE ==
[2022-10-19 17:12] LABS: ALT 17 U/L (10-49); AST 19 U/L (14-35); Albumin 4.7 d/dL (3.8-4.9); Albumin/Globulin Ratio 1.88 Ratio (1.60-3.17); Alkaline Phosphatase 81 U/L (41-126); BUN/Creat Ratio 18.29 Ratio (12.00-20.00); Blood Urea Nitrogen 25.6 mg/dL (9.0-27.0); Calcium 10.2 mg/dL (8.7-10.3); Carbon Dioxide 23.8 mmol/L (21.6-31.8); Chloride 106 mmol/L (96-109); Chol/HDL Ratio 2.91 Ratio; Globulin 2.5 d/dL (1.6-3.3); Glucose 100 mg/dL (70-110); LDL Cholesterol,Calculated 54.7 mg/dL (0.0-131.0); Potassium 5.6 mmol/L (3.5-5.5); Sodium 140 mmol/L (135-145); Total Bilirubin 0.3 mg/dL (0.3-1.2); Total Protein 7.2 d/dL (6.2-8.2)
[2022-10-19 17:19] LABS: Basophils # (A) 0.02 X 10*3/uL (0.00-0.10); Basophils % (A) 0.6 %; Eosinophils # (A) 0.11 X 10*3/uL (0.04-0.35); Eosinophils % (A) 3.4 %; HCT 39.3 % (39.6-50.0); HGB 13.3 d/dL (13.0-17.0); Lymphocytes % (A) 18.6 %; MCH 30.4 pg (27.0-32.0); MCHC 33.8 d/dL (32.0-37.0); MCV 89.7 FL (80.0-97.0); Mean Platelet Volume 8.6 FL (9.5-12.2); Monocytes # (A) 0.24 X 10*3/uL (0.20-1.00); Monocytes % (A) 7.4 %; NRBC Per 100 WBC 0 X 10*3/uL (0.00-0.01); Neutrophils # (A) 2.25 X 10*3/uL (1.80-7.70); Neutrophils % (A) 69.7 %; Platelet Count 196 X 10*3/uL (140-440); RBC 4.38 X 10*6/uL (4.40-5.60); RDW 12.8 % (11.5-14.5); WBC 3.23 X 10*3/uL (4.50-10.00)
== END | disposition home or self-care (01) ==
LOC: LABWHC1 09:54
PROVIDERS: ATTEND Family Medicine
DX: E78.5 Hyperlipidemia, unspecified (principal); Z86.73 Personal history of transient ischemic attack (TIA), and cerebral infarction without residual deficits
CPT/HCPCS: 36415; 80053; 80061; 83036; 85025

== ENCOUNTER → 2023-02-16 | Outpatient (CLI) | payer MEDICARE ==
[2023-02-16 15:36] LABS: Basophils # (A) 0.04 X 10*3/uL (0.00-0.10); Basophils % (A) 1.3 %; Eosinophils # (A) 0.14 X 10*3/uL (0.04-0.35); Eosinophils % (A) 4.4 %; HCT 39.4 % (39.6-50.0); HGB 12.9 g/dL (13.0-17.0); Lymphocytes # (A) 0.59 X 10*3/uL (0.90-5.00); Lymphocytes % (A) 18.4 %; MCH 30.4 pg (27.0-32.0); MCHC 32.7 g/dL (32.0-37.0); MCV 92.7 FL (80.0-97.0); Mean Platelet Volume 8.9 FL (9.5-12.2); Monocytes # (A) 0.24 X 10*3/uL (0.20-1.00); Monocytes % (A) 7.5 %; NRBC Per 100 WBC 0 X 10*3/uL (0.00-0.01); Neutrophils # (A) 2.17 X 10*3/uL (1.80-7.70); Neutrophils % (A) 67.8 %; Platelet Count 187 X 10*3/uL (140-440); RBC 4.25 X 10*6/uL (4.40-5.60)
[2023-02-16 16:07] LABS: ALT 19 U/L (10-49); AST 14 U/L (14-35); Albumin 4.7 g/dL (3.8-4.9); Albumin/Globulin Ratio 1.96 Ratio (1.60-3.17); Alkaline Phosphatase 85 U/L (41-126); BUN/Creat Ratio 23.21 Ratio (12.00-20.00); Blood Urea Nitrogen 32.5 mg/dL (9.0-27.0); Calcium 10.2 mg/dL (8.7-10.3); Carbon Dioxide 23.5 mmol/L (21.6-31.8); Chloride 110 mmol/L (96-109); Chol/HDL Ratio 3.26 Ratio; Globulin 2.4 g/dL (1.6-3.3); Glucose 134 mg/dL (70-110); LDL Cholesterol,Calculated 55.7 mg/dL (0.0-131.0); Potassium 5.9 mmol/L (3.5-5.5); Sodium 143 mmol/L (135-145); Total Bilirubin 0.2 mg/dL (0.3-1.2); Total Protein 7.1 g/dL (6.2-8.2)
== END | disposition home or self-care (01) ==
LOC: LABWHC1 07:54
PROVIDERS: ATTEND Family Medicine
DX: E11.9 Type 2 diabetes mellitus without complications (principal); E78.5 Hyperlipidemia, unspecified; Z86.73 Personal history of transient ischemic attack (TIA), and cerebral infarction without residual deficits
CPT/HCPCS: 36415; 80053; 80061; 83036; 85025

== ENCOUNTER → 2023-03-14 | Outpatient (CLI) | payer MEDICARE ==
[2023-03-14 21:20] LABS: Total Protein 24 Hour,Urine 136.8 mg/24Hr (0.0-165.0); Total Volume 24 Hour,Urine 1800 mL
== END | disposition home or self-care (01) ==
LOC: LABWHC1 11:16
PROVIDERS: ATTEND Family Medicine
DX: R77.0 Abnormality of albumin (principal)
CPT/HCPCS: 81050; 84156

== ENCOUNTER → 2023-03-24 | Outpatient (CLI) | payer MEDICARE ==
--- NOTE | 2023-03-25 19:28 | US ---
EXAMINATION TYPE: US kidneys/renal and bladder DATE OF EXAM: 03/24/2023 COMPARISON: CLINICAL INDICATION: Male, 72 years old with history of E11.29 DIABETES; Patient states recently pass ing a renal stone. No pain at this time. EXAM MEASUREMENTS: Right Kidney: 9.9 x 4.5 x 5.3 cm Left Kidney: 10.7 x 4.2 x 4.7 cm Right Kidney: Lobular renal cortex seen. No masses or lesions identified. Left Kidney: Lobular renal cortex seen. Echogenic focus seen with shadowing = 0.7 cm. Bladder: mild/moderate distension, anechoic Bilateral Jets not seen IMPRESSION: 1. Nonobstructing mid left renal stone.
== END | disposition home or self-care (01) ==
LOC: RADUSWWP 14:34
PROVIDERS: ATTEND Family Medicine
DX: N20.0 Calculus of kidney (principal); E11.29 Type 2 diabetes mellitus with other diabetic kidney complication
CPT/HCPCS: 76770

== ENCOUNTER → 2023-05-22 | Outpatient (CLI) | payer MEDICARE ==
[2023-05-22 18:45] LABS: Basophils # (A) 0.02 X 10*3/uL (0.00-0.10); Basophils % (A) 0.6 %; Eosinophils % (A) 2.8 %; HCT 38.5 % (39.6-50.0); HGB 12.4 g/dL (13.0-17.0); Lymphocytes # (A) 0.69 X 10*3/uL (0.90-5.00); Lymphocytes % (A) 19.7 %; MCH 29.7 pg (27.0-32.0); MCHC 32.2 g/dL (32.0-37.0); MCV 92.3 FL (80.0-97.0); Mean Platelet Volume 8.8 FL (9.5-12.2); Monocytes # (A) 0.22 X 10*3/uL (0.20-1.00); Monocytes % (A) 6.3 %; NRBC Per 100 WBC 0 X 10*3/uL (0.00-0.01); Neutrophils # (A) 2.47 X 10*3/uL (1.80-7.70); Neutrophils % (A) 70.3 %; Platelet Count 199 X 10*3/uL (140-440); RBC 4.17 X 10*6/uL (4.40-5.60); WBC 3.51 X 10*3/uL (4.50-10.00)
[2023-05-22 19:09] LABS: ALT 14 U/L (10-49); AST 15 U/L (14-35); Albumin 4.5 g/dL (3.8-4.9); Albumin/Globulin Ratio 1.67 Ratio (1.60-3.17); Alkaline Phosphatase 108 U/L (41-126); BUN/Creat Ratio 22.62 Ratio (12.00-20.00); Blood Urea Nitrogen 29.4 mg/dL (9.0-27.0); Calcium 10.2 mg/dL (8.7-10.3); Carbon Dioxide 22.8 mmol/L (21.6-31.8); Chloride 109 mmol/L (96-109); Globulin 2.7 g/dL (1.6-3.3); Glucose 122 mg/dL (70-110); LDL Cholesterol,Calculated 44.1 mg/dL (0.0-131.0); Potassium 5.7 mmol/L (3.5-5.5); Sodium 142 mmol/L (135-145); Total Bilirubin <0.2 mg/dL (0.3-1.2); Total Protein 7.2 g/dL (6.2-8.2)
== END | disposition home or self-care (01) ==
LOC: LABWHC1 10:00
PROVIDERS: ATTEND Family Medicine
DX: E11.9 Type 2 diabetes mellitus without complications (principal); E78.5 Hyperlipidemia, unspecified; Z86.73 Personal history of transient ischemic attack (TIA), and cerebral infarction without residual deficits
CPT/HCPCS: 36415; 80053; 80061; 83036; 85025

== ENCOUNTER → 2023-06-28 | Outpatient (CLI) | payer MEDICARE ==
--- NOTE | 2023-07-02 21:47 | CT ---
EXAMINATION TYPE: CT brain wo con DATE OF EXAM: 06/28/2023 COMPARISON: 08/18/2022 HISTORY: 72-year-old male R42, dizziness TECHNIQUE: Examination was done in axial plane without intravenous contrast. Coronal and sagittal r econstructions performed. CT DLP: 1156 mGycm Automated exposure control for dose reduction was used. FINDINGS: There is no evidence of acute intracranial hemorrhage, acute ischemic changes, mass, mass-effect, or extra-axial fluid collection. There is no effacement of cerebral sulci or basal subarachnoid cister ns. There is no hydrocephalus. There is no midline shift. Jara-white matter distinction is preserv ed. Redemonstrated are old infarct left herrmann radiata. Old blowout fracture medial right orbital wall. Globes appear intact. Trace mucosal thickening floor of the left maxillary sinus. Mastoid air cells are well pneumatized. IMPRESSION: Redemonstrated are old white matter infarct left herrmann radiata. No acute intracranial abnormality se en. Incidental: Old blowout fracture medial right orbital wall.
== END | disposition home or self-care (01) ==
LOC: RADCTMAIN 15:04
PROVIDERS: ATTEND Family Medicine
DX: R42 Dizziness and giddiness (principal)
CPT/HCPCS: 70450

== ENCOUNTER → 2023-06-29 | Outpatient (CLI) | payer MEDICARE ==
[2023-06-29 16:01] LABS: Appearance,Urine Clear (Clear); Bilirubin,Urine Negative (Negative); Blood,Urine Negative (Negative); Color,Urine Yellow (Yellow); Ketones,Urine Negative (Negative); Nitrite,Urine Negative (Negative); Specific Gravity,Urine 1.017 (1.001-1.030); Urobilinogen,Urine 0.2 E.U./DL
[2023-06-29 16:08] LABS: Basophils # (A) 0.03 X 10*3/uL (0.00-0.10); Basophils % (A) 0.8 %; Eosinophils # (A) 0.09 X 10*3/uL (0.04-0.35); Eosinophils % (A) 2.3 %; HCT 38.6 % (39.6-50.0); HGB 12.5 g/dL (13.0-17.0); Lymphocytes # (A) 0.54 X 10*3/uL (0.90-5.00); Lymphocytes % (A) 13.9 %; MCH 29.5 pg (27.0-32.0); MCHC 32.4 g/dL (32.0-37.0); Mean Platelet Volume 8.3 FL (9.5-12.2); Monocytes # (A) 0.24 X 10*3/uL (0.20-1.00); Monocytes % (A) 6.2 %; NRBC Per 100 WBC 0 X 10*3/uL (0.00-0.01); Neutrophils # (A) 2.98 X 10*3/uL (1.80-7.70); Neutrophils % (A) 76.5 %; Platelet Count 225 X 10*3/uL (140-440); RBC 4.24 X 10*6/uL (4.40-5.60); WBC 3.89 X 10*3/uL (4.50-10.00)
[2023-06-29 16:38] LABS: % Iron Saturation 12.72 (15.00-50.00); ALT 16 U/L (10-49); AST 18 U/L (14-35); Albumin 4.5 g/dL (3.8-4.9); Albumin/Globulin Ratio 1.73 Ratio (1.60-3.17); Alkaline Phosphatase 121 U/L (41-126); BUN/Creat Ratio 21.17 Ratio (12.00-20.00); Blood Urea Nitrogen 25.4 mg/dL (9.0-27.0); Calcium 10.3 mg/dL (8.7-10.3); Carbon Dioxide 22.1 mmol/L (21.6-31.8); Chloride 106 mmol/L (96-109); Ferritin 57.5 ng/mL (22.0-322.0); Globulin 2.6 g/dL (1.6-3.3); Glucose 198 mg/dL (70-110); Iron 50 UG/DL (65-175); Magnesium 1.6 mg/dL (1.5-2.4); Phosphorus 2.6 mg/dL (2.4-5.1); Potassium 5.2 mmol/L (3.5-5.5); Sodium 141 mmol/L (135-145); T4, Free (Free Thyroxine) 1.05 ng/dL (0.80-1.80); Total Bilirubin 0.3 mg/dL (0.3-1.2); Total Iron Binding Capacity 393 UG/DL (228-460); Total Protein 7.1 g/dL (6.2-8.2); Uric Acid 6.6 mg/dL (3.7-8.7)
[2023-06-29 22:50] LABS: Microalbumin Creatinine Ratio <17 mg/g Cr (0-30); Urine Creatinine 71.6 mg/dL (39.0-259.0)
== END | disposition home or self-care (01) ==
LOC: LABWHC1 11:49
PROVIDERS: ATTEND Family Medicine
DX: I63.512 Cerebral infarction due to unspecified occlusion or stenosis of left middle cerebral artery (principal); E55.9 Vitamin D deficiency, unspecified; E78.5 Hyperlipidemia, unspecified; E11.69 Type 2 diabetes mellitus with other specified complication; E11.22 Type 2 diabetes mellitus with diabetic chronic kidney disease; M10.9 Gout, unspecified; N39.0 Urinary tract infection, site not specified; N25.81 Secondary hyperparathyroidism of renal origin; N18.31 Chronic kidney disease, stage 3a; D63.1 Anemia in chronic kidney disease; R80.9 Proteinuria, unspecified; R42 Dizziness and giddiness
CPT/HCPCS: 36415; 80053; 81003; 82043; 82306; 82570; 82728; 83540; 83550; 83735; 83970; 84100; 84439; 84443; 84550; 85025; 86334; 86335

== ENCOUNTER → 2023-09-25 | Outpatient (CLI) | payer MEDICARE ==
[2023-09-25 15:51] LABS: ALT 16 U/L (10-49); AST 18 U/L (14-35); Albumin 4.7 g/dL (3.8-4.9); Albumin/Globulin Ratio 1.88 Ratio (1.60-3.17); Alkaline Phosphatase 100 U/L (41-126); BUN/Creat Ratio 24.57 Ratio (12.00-20.00); Blood Urea Nitrogen 34.4 mg/dL (9.0-27.0); Calcium 9.8 mg/dL (8.7-10.3); Carbon Dioxide 20.2 mmol/L (21.6-31.8); Chloride 109 mmol/L (96-109); Chol/HDL Ratio 3.07 Ratio; Globulin 2.5 g/dL (1.6-3.3); Glucose 88 mg/dL (70-110); LDL Cholesterol,Calculated 57.3 mg/dL (0.0-131.0); Potassium 5.5 mmol/L (3.5-5.5); Prostate Specific Antigen 0.32 ng/mL (0.000-6.500); Sodium 143 mmol/L (135-145); Total Bilirubin 0.3 mg/dL (0.3-1.2); Total Protein 7.2 g/dL (6.2-8.2); VLDL Calculation 18.92 mg/dL (5.00-40.00)
[2023-09-25 17:02] LABS: Basophils # (A) 0.02 X 10*3/uL (0.00-0.10); Basophils % (A) 0.5 %; Eosinophils # (A) 0.09 X 10*3/uL (0.04-0.35); Eosinophils % (A) 2.4 %; Lymphocytes # (A) 0.68 X 10*3/uL (0.90-5.00); Lymphocytes % (A) 18.3 %; MCH 29.7 pg (27.0-32.0); MCHC 31.7 g/dL (32.0-37.0); MCV 93.6 FL (80.0-97.0); Mean Platelet Volume 9.3 FL (9.5-12.2); Monocytes # (A) 0.27 X 10*3/uL (0.20-1.00); Monocytes % (A) 7.3 %; NRBC Per 100 WBC 0 X 10*3/uL (0.00-0.01); Neutrophils # (A) 2.64 X 10*3/uL (1.80-7.70); Platelet Count 208 X 10*3/uL (140-440); RBC 4.38 X 10*6/uL (4.40-5.60); RDW 12.8 % (11.5-14.5); WBC 3.72 X 10*3/uL (4.50-10.00)
== END | disposition home or self-care (01) ==
LOC: LABWHC1 10:06
PROVIDERS: ATTEND Family Medicine
DX: C61 Malignant neoplasm of prostate (principal); E78.5 Hyperlipidemia, unspecified; E11.9 Type 2 diabetes mellitus without complications; Z86.73 Personal history of transient ischemic attack (TIA), and cerebral infarction without residual deficits
CPT/HCPCS: 36415; 80053; 80061; 83036; 84153; 85025

== ENCOUNTER → 2024-02-21 | Outpatient (CLI) | payer MEDICARE ==
[2024-02-21 15:53] LABS: Basophils # (A) 0.03 X 10*3/uL (0.00-0.10); Basophils % (A) 0.8 %; Eosinophils # (A) 0.08 X 10*3/uL (0.04-0.35); Eosinophils % (A) 2.2 %; HCT 37.9 % (39.6-50.0); HGB 12.2 g/dL (13.0-17.0); Lymphocytes # (A) 0.66 X 10*3/uL (0.90-5.00); Lymphocytes % (A) 18.2 %; MCHC 32.2 g/dL (32.0-37.0); MCV 93.3 FL (80.0-97.0); Monocytes # (A) 0.21 X 10*3/uL (0.20-1.00); Monocytes % (A) 5.8 %; NRBC Per 100 WBC 0 X 10*3/uL (0.00-0.01); Neutrophils # (A) 2.63 X 10*3/uL (1.80-7.70); Neutrophils % (A) 72.4 %; Platelet Count 191 X 10*3/uL (140-440); RBC 4.06 X 10*6/uL (4.40-5.60); RDW 12.8 % (11.5-14.5); WBC 3.63 X 10*3/uL (4.50-10.00)
[2024-02-21 16:22] LABS: ALT 16 U/L (10-49); AST 17 U/L (14-35); Albumin 4.4 g/dL (3.8-4.9); Albumin/Globulin Ratio 1.76 Ratio (1.60-3.17); Alkaline Phosphatase 91 U/L (41-126); BUN/Creat Ratio 25.87 Ratio (12.00-20.00); Blood Urea Nitrogen 38.8 mg/dL (9.0-27.0); Calcium 9.8 mg/dL (8.7-10.3); Carbon Dioxide 19.6 mmol/L (21.6-31.8); Chloride 109 mmol/L (96-109); Globulin 2.5 g/dL (1.6-3.3); Glucose 85 mg/dL (70-110); LDL Cholesterol,Calculated 56.1 mg/dL (0.0-131.0); Potassium 5.9 mmol/L (3.5-5.5); Sodium 141 mmol/L (135-145); Total Bilirubin 0.3 mg/dL (0.3-1.2); Total Protein 6.9 g/dL (6.2-8.2)
== END | disposition home or self-care (01) ==
LOC: LABWHC1 08:45
PROVIDERS: ATTEND Family Medicine
DX: E11.9 Type 2 diabetes mellitus without complications (principal); E78.5 Hyperlipidemia, unspecified; Z86.73 Personal history of transient ischemic attack (TIA), and cerebral infarction without residual deficits
CPT/HCPCS: 36415; 80053; 80061; 83036; 85025

== ENCOUNTER → 2024-03-21 | Outpatient (CLI) | payer MEDICARE ==
[2024-03-21 12:21] LABS: Appearance,Urine Clear (Clear); Bilirubin,Urine Negative (Negative); Blood,Urine Negative (Negative); Color,Urine Light Yellow; Glucose,Urine (UA) Negative (Negative); Ketones,Urine Negative (Negative); Leukocyte Esterase,Urine Negative (Negative); Nitrite,Urine Negative (Negative); Protein,Urine Negative (Negative); Specific Gravity,Urine 1.018 (1.001-1.035); Urobilinogen,Urine <2.0 mg/dL (<2.0)
[2024-03-21 12:36] LABS: Creatinine,Urine Random 120.7 mg/dL; Protein/Creatinine Ratio,Urine 0.066
[2024-03-21 15:04] LABS: Basophils # (A) 0.03 X 10*3/uL (0.00-0.10); Basophils % (A) 0.5 %; Eosinophils # (A) 0.08 X 10*3/uL (0.04-0.35); Eosinophils % (A) 1.4 %; HCT 38.2 % (39.6-50.0); HGB 12.2 g/dL (13.0-17.0); Lymphocytes # (A) 0.87 X 10*3/uL (0.90-5.00); Lymphocytes % (A) 15.6 %; MCH 29.8 pg (27.0-32.0); MCHC 31.9 g/dL (32.0-37.0); MCV 93.2 FL (80.0-97.0); Mean Platelet Volume 8.8 FL (9.5-12.2); Monocytes # (A) 0.33 X 10*3/uL (0.20-1.00); Monocytes % (A) 5.9 %; NRBC Per 100 WBC 0 X 10*3/uL (0.00-0.01); Neutrophils # (A) 4.26 X 10*3/uL (1.80-7.70); Neutrophils % (A) 76.2 %; Platelet Count 209 X 10*3/uL (140-440); RDW 12.9 % (11.5-14.5); WBC 5.59 X 10*3/uL (4.50-10.00)
[2024-03-21 19:09] LABS: ALT 14 U/L (10-49); AST 16 U/L (14-35); Albumin 4.5 g/dL (3.8-4.9); Albumin/Globulin Ratio 1.67 Ratio (1.60-3.17); Alkaline Phosphatase 94 U/L (41-126); BUN/Creat Ratio 17.14 Ratio (12.00-20.00); Calcium 10.1 mg/dL (8.7-10.3); Carbon Dioxide 21.7 mmol/L (21.6-31.8); Chloride 107 mmol/L (96-109); Globulin 2.7 g/dL (1.6-3.3); Glucose 83 mg/dL (70-110); Magnesium 1.4 mg/dL (1.5-2.4); Phosphorus 3.9 mg/dL (2.4-5.1); Potassium 5.9 mmol/L (3.5-5.5); Sodium 140 mmol/L (135-145); Total Bilirubin 0.2 mg/dL (0.3-1.2); Total Protein 7.2 g/dL (6.2-8.2)
[2024-03-21 21:18] LABS: Microalbumin Creatinine Ratio <10 mg/g Cr (0-30)
== END | disposition home or self-care (01) ==
LOC: LABWHC1 11:35
PROVIDERS: ATTEND Nurse Practitioner Acute Care
DX: N18.31 Chronic kidney disease, stage 3a (principal); D63.1 Anemia in chronic kidney disease; N39.0 Urinary tract infection, site not specified; R80.9 Proteinuria, unspecified
CPT/HCPCS: 36415; 80053; 81003; 82043; 82570; 83735; 84100; 84156; 85025

== ENCOUNTER → 2024-03-25 | Outpatient (CLI) | payer MEDICARE ==
[2024-03-25 20:14] LABS: BUN/Creat Ratio 19.13 Ratio (12.00-20.00); Blood Urea Nitrogen 28.7 mg/dL (9.0-27.0); Calcium 9.9 mg/dL (8.7-10.3); Carbon Dioxide 21.8 mmol/L (21.6-31.8); Chloride 106 mmol/L (96-109); Glucose 137 mg/dL (70-110); Potassium 5.7 mmol/L (3.5-5.5); Sodium 141 mmol/L (135-145)
== END | disposition home or self-care (01) ==
LOC: LABWHC1 12:28
PROVIDERS: ATTEND Internal Medicine Nephrology
DX: N18.31 Chronic kidney disease, stage 3a (principal)
CPT/HCPCS: 36415; 80048

== ENCOUNTER → 2024-06-25 | Outpatient (CLI) | payer MEDICARE ==
--- NOTE | 2024-06-25 14:27 | CT ---
EXAMINATION TYPE: CT abdomen pelvis wo con DATE OF EXAM: 06/25/2024 COMPARISON: 09/29/2015 CLINICAL INDICATION: Male, 73 years old with history of R31.0 GROSS HEMATURIA; PHH, hematuria TECHNIQUE: CT scan of the abdomen and pelvis is performed without oral or IV contrast. CT DLP: 689.[address] CTDI: mGy Automated exposure control for dose reduction was used. FINDINGS: Within the limitations of a non-contrast study, the following observations are made. A right middle lobe nodule has grown from 8.3 mm to 10.4 mm. There are 3 additional new nodule/masses in right lung including a 13.6 mm nodule in the right middle lobe abutting the fissure, 5 mm nodule in the right middle lobe and an ill-defined 2.6 cm nodule in the right lower lobe. The findings are suspicious for neoplasm but could be infectious/inflammatory nature. CT thorax is recommended to eval uate the lung, howard and mediastinum in their entirety. There is mild cardiomegaly. Gallbladder is normal and there is no gallstone, wall thickening, pericholecystic fluid or distention . There is no biliary ductal dilatation. There is no organomegaly of the liver, pancreas, spleen or adrenal glands. There is a punctate right renal calcification and 2 punctate nonobstructing left renal calcifications . The caliber of the abdominal aorta is normal and there is no retroperitoneal adenopathy or hemorrhage . The bowel loops are normal in caliber is no evidence of obstruction. No inflammatory changes are iden tified in the mesentery and there is no free intraperitoneal air or fluid. There is no pelvic mass, free fluid, abscess or adenopathy. There is mild prostatic hypertrophy with calcification. There is a grade 2-3 anterolisthesis of L5 on S1 secondary to bilateral spondylolysis of L5. There is multilevel moderate to marked degenerative disc disease throughout the lumbar spine. There a re no focal destructive osseous lesions. IMPRESSION: 1. Multiple right lung nodules/masses. Neoplasm lung is not excluded and CT of the thorax is recommen ded for further evaluation. 2. View punctate nonobstructing bilateral renal calcifications. 3. Grade 2-3 anterolisthesis of L5 on S1 secondary to bilateral spondylolysis of L5 [facility], , 06/25/2024 2:24 PM
== END | disposition home or self-care (01) ==
LOC: RADCTMAIN 13:17
PROVIDERS: ATTEND Urology
DX: N20.0 Calculus of kidney (principal); M43.17 Spondylolisthesis, lumbosacral region; N28.89 Other specified disorders of kidney and ureter
CPT/HCPCS: 74176

== ENCOUNTER → 2024-07-08 | Outpatient (CLI) | payer MEDICARE ==
[2024-07-08 15:36] LABS: Appearance,Urine Clear (Clear); Bilirubin,Urine Negative (Negative); Blood,Urine Negative (Negative); Color,Urine Yellow (Yellow); Ketones,Urine Negative (Negative); Nitrite,Urine Negative (Negative); PH, Urine 5.5; Specific Gravity,Urine 1.015 (1.001-1.030)
[2024-07-08 15:41] LABS: Basophils # (A) 0.03 X 10*3/uL (0.00-0.10); Basophils % (A) 0.8 %; Eosinophils # (A) 0.08 X 10*3/uL (0.04-0.35); Eosinophils % (A) 2.2 %; HCT 39.4 % (39.6-50.0); HGB 12.5 g/dL (13.0-17.0); Lymphocytes # (A) 0.61 X 10*3/uL (0.90-5.00); MCH 29.3 pg (27.0-32.0); MCHC 31.7 g/dL (32.0-37.0); MCV 92.3 FL (80.0-97.0); Mean Platelet Volume 8.8 FL (9.5-12.2); Monocytes # (A) 0.25 X 10*3/uL (0.20-1.00); NRBC Per 100 WBC 0 X 10*3/uL (0.00-0.01); Neutrophils # (A) 2.61 X 10*3/uL (1.80-7.70); Neutrophils % (A) 72.7 %; Platelet Count 174 X 10*3/uL (140-440); RBC 4.27 X 10*6/uL (4.40-5.60); RDW 12.8 % (11.5-14.5); WBC 3.59 X 10*3/uL (4.50-10.00)
[2024-07-08 16:04] LABS: % Iron Saturation 15.51 (15.00-50.00); Albumin 4.3 g/dL (3.8-4.9); BUN/Creat Ratio 22.67 Ratio (12.00-20.00); Blood Urea Nitrogen 27.2 mg/dL (9.0-27.0); Calcium 9.7 mg/dL (8.7-10.3); Carbon Dioxide 22.1 mmol/L (21.6-31.8); Chloride 110 mmol/L (96-109); Ferritin 39.4 ng/mL (22.0-322.0); Glucose 137 mg/dL (70-110); Iron 65 UG/DL (65-175); Magnesium 1.4 mg/dL (1.5-2.4); Phosphorus 3.4 mg/dL (2.4-5.1); Potassium 4.7 mmol/L (3.5-5.5); Sodium 143 mmol/L (135-145); Total Iron Binding Capacity 419 UG/DL (228-460); Uric Acid 6.7 mg/dL (3.7-8.7)
[2024-07-08 21:02] LABS: Urine Creatinine 77.8 mg/dL (39.0-259.0)
== END | disposition home or self-care (01) ==
LOC: LABWHC1 08:15
PROVIDERS: ATTEND Urology
DX: C61 Malignant neoplasm of prostate (principal); E55.9 Vitamin D deficiency, unspecified; N25.81 Secondary hyperparathyroidism of renal origin; M10.9 Gout, unspecified; N39.0 Urinary tract infection, site not specified; N18.31 Chronic kidney disease, stage 3a; D63.1 Anemia in chronic kidney disease
CPT/HCPCS: 36415; 80048; 81003; 82040; 82043; 82306; 82570; 82728; 83540; 83550; 83735; 83970; 84100; 84153; 84550; 85025

== ENCOUNTER → 2024-07-12 | Outpatient (CLI) | payer MEDICARE ==
--- NOTE | 2024-07-12 10:53 | CT ---
EXAMINATION TYPE: CT chest w con DATE OF EXAM: 07/12/2024 10:26 AM COMPARISON: Correlation abdomen CT 06/25/2024 CLINICAL INDICATION: Male, 73 years old with history of R91.8 LUNG NODULE; PHH, abnormal lung finding s on recent abdomen CT TECHNIQUE: CT of the chest after IV contrast. Coronal and sagittal reconstructions performed. Contrast used:100mL mL of Isovue 300 with IV Contrast (None if empty) CT DLP: 479.9 mGycm, Automated exposure control for dose reduction was used. FINDINGS: The heart is borderline enlarged without pericardial effusion. Mild aortic valve calcifications. Aorta normal caliber with conventional arterial suppression technique. Scattered mild atherosclerotic calcifications. Nonspecific prominent 1.6 cm right hilar lymph node. Otherwise, no thoracic lymphadenopathy by CT siz e criteria. Mild right-sided gynecomastia, trace on the left. Mildly enlarged caliber main right and left pulmonary arteries up to 2.7 cm suggesting underlying pul monary hypertension. Mild emphysematous change. Scattered strandy atelectasis and scarring in the lungs. There are a few scattered nonspecific pulmonary nodules, the smallest nodules measure up to 8 mm. 2 d ominant oval nodules are present at the posterior right middle lobe and at the basilar right lower lo be measuring 1.7 x 1.0 cm and 2.4 x 1.0 cm, respectively. In addition, there is prominent subpleural groundglass change posterior left lower lobe. Lesser degre e of changes on the right, favored chronic subpleural scarring. No pleural effusion. There is some strandy edema tracking down the right retroperitoneum behind the pancreatic head which is nonspecific. Bones: Slight dextroconvex curvature of thoracolumbar junction. Extensive DISH throughout the mid and lower thoracic spine. Prominent disc osteophyte complex and grade 1 retrolisthesis at L1-L2 may cont ribute to moderate to severe focal spinal canal stenosis. IMPRESSION: 1. Nonspecific scattered 8 mm and smaller pulmonary nodules. Follow-up in 3 months to reassess. 2. Two dominant oval nodules at the right base measuring 2.4 cm and 1.7 cm. Early neoplasm not exclud ed. Atypical infections are also in the differential. Consider further pulmonary medicine evaluation and possible PET/CT. 3. Nonspecific mildly enlarged 1.6 cm right hilar lymph node. 4. COPD with mild emphysema, scattered areas of scarring, and some focal subpleural groundglass poste rior left lower lobe, suspected additional pleural parenchymal scarring. Attention on follow-up for t he groundglass change. 5. Incidentally, some strandy edema tracks down the right retroperitoneum behind the pancreatic head. This is nonspecific and may relate to third spacing. Correlate with amylase and lipase levels to exc lude the possibility of a mild acute pancreatitis. 6. Large disc osteophyte complex at L1-L2 may contribute to a moderate to severe focal spinal canal s tenosis. Fleischner criteria utilized. [facility], , 07/12/2024 10:51 AM
== END | disposition home or self-care (01) ==
LOC: RADCTMAIN 09:49
PROVIDERS: ATTEND Family Medicine
DX: J43.9 Emphysema, unspecified (principal); R91.8 Other nonspecific abnormal finding of lung field; R59.0 Localized enlarged lymph nodes; J44.9 Chronic obstructive pulmonary disease, unspecified; J98.4 Other disorders of lung; M48.061 Spinal stenosis, lumbar region without neurogenic claudication; M25.78 Osteophyte, vertebrae
CPT/HCPCS: 71260; Q9967

== ENCOUNTER → 2024-08-22 | Outpatient (CLI) | payer MEDICARE ==
[2024-08-22 15:37] LABS: ALT 17 U/L (10-49); AST 19 U/L (14-35); Albumin 4.3 g/dL (3.8-4.9); Albumin/Globulin Ratio 1.65 Ratio (1.60-3.17); Alkaline Phosphatase 88 U/L (41-126); BUN/Creat Ratio 22.38 Ratio (12.00-20.00); Blood Urea Nitrogen 29.1 mg/dL (9.0-27.0); Carbon Dioxide 21.9 mmol/L (21.6-31.8); Chloride 107 mmol/L (96-109); Globulin 2.6 g/dL (1.6-3.3); Glucose 79 mg/dL (70-110); Sodium 142 mmol/L (135-145); Total Bilirubin 0.3 mg/dL (0.3-1.2); Total Protein 6.9 g/dL (6.2-8.2)
== END | disposition home or self-care (01) ==
LOC: LABWHC1 09:16
PROVIDERS: ATTEND Family Medicine
DX: E11.9 Type 2 diabetes mellitus without complications (principal); E78.5 Hyperlipidemia, unspecified
CPT/HCPCS: 36415; 80053; 83036